=== PATIENT | male | born 1940 | race Caucasian/White ===

== ENCOUNTER 2020-03-03 14:07 | Inpatient (IN) ==
[2020-03-03] MEDS ORDERED: ONDANSETRON INJ 2 MG/ML 2 ML VIAL IV STA (14:44)
[2020-03-03] MEDS ORDERED: SODIUM CHLORIDE 0.9% 500 ML IV SCH (14:45)
[2020-03-03 14:52] LABS: Basophils # (auto) 0.05 K/uL (0-0.2); Basophils % (auto) 0.3 %; Eosinophils # (auto) 0.14 K/uL (0-0.5); Eosinophils % (auto) 0.9 %; Hematocrit (blood only) 35.4 % (42-52); Hemoglobin 11.7 g/dL (14.0-18.0); Immature Granulocytes # (auto) 0.04 K/uL (0.00-0.02); Immature Granulocytes % (auto) 0.3 %; Lymphocytes # (auto) 0.91 K/uL (1.2-3.4); Lymphocytes % (auto) 6.2 %; Mean Corpuscular Hemoglobin 32.7 pg (25-34); Mean Corpuscular Hgb Conc 33.1 g/dL (32-36); Mean Corpuscular Volume 98.9 fL (80-100); Mean Platelet Volume 9.5 fL (7.4-10.4); Monocytes # (auto) 0.48 K/uL (0.11-0.59); Monocytes % (auto) 3.3 %; Neutrophils # (auto) 13.14 K/uL (1.4-6.5); Platelet Count 265 K/uL (130-400); RDW Coefficient of Variation 14.6 % (11.5-14.5); Red Blood Count 3.58 M/uL (4.7-6.1); White Blood Count 14.76 K/uL (4.8-10.8)
--- NOTE | 2020-03-03 14:52 | Emergency Department Note ---
History of Present Illness General Chief Complaint: Abdominal Pain Stated Complaint: LOWER ABD PAIN - NAUSEA - VOMITING Time Seen by Provider: 03/03/20 14:32 Source: patient Mode of arrival: ambulatory Limitations: no limitations History of Present Illness Provider Complaint: abdominal pain Onset (ago): 3 day(s) Pain Consistency: constant Location: RLQ Radiation: none Severity: mild Maximum Pain Intensity: 2 Quality: + aching Relieved By: + nothing Exacerbated By: + nothing Associated Symptoms: + nausea This is a 79-year-old male who presents to the ED with a chief complaint of right lower quadrant abdominal pain. This patient states that his symptoms started a few days ago and it was mild and slight at that time. The patient states that this morning after eating breakfast around 8 AM he developed some nausea and increased right lower quadrant abdominal pain. He states that he rates his pain around 2-3 out of 10. He denies any diarrhea or constipation at this time. He denies any fevers. He does use dialysis. The dialysate fluid in the tube on my exam was clear. He denies any issues with his dialysis. He does produce some urine. The patient has no other complaints at this time. His main complaint at this time is the nausea and would like something for that. He did not want something for pain. Home Medications Home Medications Medication Instructions Recorded Confirmed Type allopurinol 300 mg tablet 300 mg PO HS tab 06/01/19 03/03/20 History atorvastatin 80 mg tablet 80 mg PO HS tab 06/01/19 03/03/20 History cholecalciferol (vitamin D3) 25 1,000 unit PO QAM cap 06/01/19 03/03/20 History mcg (1,000 unit) capsule furosemide 80 mg tablet 80 mg PO QAM tab 06/01/19 03/03/20 History insulin human U-100 NPH-regulr 0 unit SUBCUT AMPM ml 06/01/19 03/03/20 History 70-30 mix 100 unit/mL subcutaneous susp levothyroxine 100 mcg tablet 100 mcg PO QAM tab 06/01/19 03/03/20 History metoprolol tartrate 25 mg tablet 12.5 mg PO Q OTHER DAY tab 06/01/19 03/03/20 History linagliptin 5 mg tablet 5 mg PO QAM 01/04/20 03/03/20 History Allergies Allergy/AdvReac Type Severity Reaction Status Date / Time No Known Allergies Allergy Verified 03/03/20 15:08 Past Med/Surg History Surgical History History of prostate surgery Family History Mother Diabetes Father Cancer Cardiac disorder Social History marital status: current occupational status: retired Feels Safe at Home: Yes Smoking Status: Never smoker Hx Alcohol Use: No Review of Systems A total of 10 systems reviewed and were otherwise negative Physical Exam Vital Signs: Vital Signs - 24 hr 03/03/20 14:08 03/03/20 14:32 03/03/20 14:47 Temperature 36.7 C Temperature Source Oral Pulse Rate 115 H 73 76 Respiratory Rate 16 23 18 Blood Pressure 143/65 H Blood Pressure Adriana n 91 Pulse Oximetry 99 Oxygen Delivery Me thod Room Air Room Air Sepsis Recent Feve r Within 48 Hours No Sepsis New/Unexpla ined Change in Men kaye Status No Sepsis Action Take n by Nursing No Action Required 03/03/20 15:00 03/03/20 15:30 03/03/20 15:34 Temperature Temperature Source Pulse Rate 74 70 75 Respiratory Rate 19 19 Blood Pressure 159/69 H Blood Pressure Adriana n 92 Pulse Oximetry 94 Oxygen Delivery Me thod Sepsis Recent Feve r Within 48 Hours Sepsis New/Unexpla ined Change in Men kaye Status Sepsis Action Take n by Nursing 03/03/20 16:00 03/03/20 16:30 Temperature Temperature Source Pulse Rate 79 74 Respiratory Rate 19 22 Blood Pressure 157/63 H 135/56 L Blood Pressure Adriana n 80 104 Pulse Oximetry 93 Oxygen Delivery Me thod Sepsis Recent Feve r Within 48 Hours Sepsis New/Unexpla ined Change in Men kaye Status Sepsis Action Take n by Nursing Physical Exam: CONSTITUTIONAL/VITAL SIGNS: Reviewed / noted above. GENERAL: Non-toxic in appearance. INTEGUMENTARY: Warm, dry, and [place]. HEAD: Normocephalic. EYES: without scleral icterus or trauma. ENT/OROPHARYNX: clear and moist. LYMPHADENOPATHY/NECK: Is supple without lymphadenopathy or meningismus. RESPIRATORY: Lungs clear and equal. CARDIOVASCULAR: Regular rate and rhythm. GI/ABDOMEN: Soft and slightly tender in the right lower quadrant. No organomegaly or pulsatile mass. No rebound or guarding. Normal bowel sounds. EXTREMITIES: Warm and well perfused. BACK: No CVA tenderness. NEUROLOGICAL: Intact without focal deficits. PSYCHIATRIC: normal affect. MUSCULOSKELETAL: Normally developed with good muscle tone. TRIAGE NURSING DOCUMENTATION REVIEWED. Course Administered Medications Discontinued Medications Sodium Chloride (Nss) 500 mls @ 999 mls/hr IV .Q31M PARISA Stop: 03/03/20 15:15 Last Infusion: 03/03/20 15:42 Dose: 0 mls/hr Documented by: [id number] Admin: 03/03/20 15:07 Dose: 999 mls/hr Documented by: [id number] Ondansetron HCl (Zofran) 4 mg IV NOW STA Stop: 03/03/20 14:45 Last Admin: 03/03/20 15:06 Dose: 4 mg Documented by: [id number] Medical Decision Making Differential Diagnosis Differential considered: pancreatitis, hepatitis, acute cholecystitis, AAA, UTI, pyelonephritis, kidney stones, appendicitis, diverticulitis, shingles, bowel obstruction, mesenteric ischemia, intussusception,hernia, testicular torsion. Medical Records Attestation: I reviewed the patient's medical records. Home Medications Current Medication List: was personally reviewed by me Laboratory Data Attestation: I reviewed the patient's lab results. Result diagrams: 03/03/20 14:30 03/03/20 14:30 Lab Results 03/03/20 03/03/20 Range/Units 14:30 14:30 WBC 14.76 H (4.8-10.8) K/uL RBC 3.58 L (4.7-6.1) M/uL Hgb 11.7 L (14.0-18.0) g/dL Hct 35.4 L (42-52) % MCV 98.9 (80-100) fL MCH 32.7 (25-34) pg MCHC 33.1 (32-36) g/dL RDW Std Deviation 52.0 H (36.4-46.3) fL RDW Coeff of Manoj 14.6 H (11.5-14.5) % Plt Count 265 (130-400) K/uL MPV 9.5 (7.4-10.4) fL Immature Gran % (Auto) 0.3 % Neut % (Auto) 89.0 % Lymph % (Auto) 6.2 % [place] % (Auto) 3.3 % Eos % (Auto) 0.9 % Baso % (Auto) 0.3 % Immature Gran # (Auto) 0.04 H (0.00-0.02) K/uL Neut # (Auto) 13.14 H (1.4-6.5) K/uL Lymph # (Auto) 0.91 L (1.2-3.4) K/uL [place] # (Auto) 0.48 (0.11-0.59) K/uL Eos # (Auto) 0.14 (0-0.5) K/uL Baso # (Auto) 0.05 (0-0.2) K/uL Sodium 134 L (136-145) mmol/L Potassium 4.3 (3.5-5.1) mmol/L Chloride 106 (98-107) mmol/L Carbon Dioxide 22 (21-32) mmol/L Anion Gap 6.0 (3-11) BUN 60 H (7-18) mg/dl Creatinine 8.68 H* (0.6-1.4) mg/dl Est Cr Clr Drug Dosing 6.2 ml/min Est GFR ( Amer) 6.0 Est GFR (Non-Af Amer) 5.2 BUN/Creatinine Ratio 6.9 L (10-20) Glucose 136 H (70-99) mg/dl Calcium 9.4 (8.5-10.1) mg/dl Total Bilirubin 0.3 (0.2-1) mg/dl AST 28 (15-37) U/L ALT 43 (12-78) U/L Alkaline Phosphatase 136 H (45-117) U/L Total Protein 8.0 (6.4-8.2) gm/dl Albumin 2.6 L (3.4-5.0) gm/dl Globulin 5.4 H (2.5-4.0) gm/dl Albumin/Globulin Ratio 0.5 L (0.9-2) Lipase 145 (73-393) U/L Imaging Data Radiologist's Impression: Chest x-ray: IMPRESSION: 1. Cardiomegaly without overt pulmonary edema. 2. Trace pleural effusions with mild bibasilar opacities suggestive of atelectasis versus pneumonitis. 3. Prior granulomatous disease. 4. Chronic interstitial coarsening. CT ABD/PELVIS: 1. Moderate-sized right inguinal hernia contains mesenteric fat, free fluid and a prominent stool-filled loop of ileum suggestive of partial obstruction. 2. Moderate sized left inguinal hernia contains a nonobstructed loop of sigmoid colon. 3. No high-grade small bowel obstruction, pneumoperitoneum or pneumatosis. 4. Normal appendix. 5. Colonic diverticulosis without acute diverticulitis. 6. Nonobstructing right nephrolithiasis. 7. Indeterminate intermediate attenuating 1.7 cm lesion of the superior pole right kidney suggestive of complex cyst versus solid lesion. 8. Additional findings as above. Blood Pressure Blood Pressure Findings: Elevated blood pressure Blood Pressure Disposition: elevated BP felt to be situational MDM Narrative This is a 79-year-old male who presents to the ED with a chief complaint of right lower quadrant abdominal pain. This patient states that his symptoms started a few days ago and it was mild and slight at that time. The patient states that this morning after eating breakfast around 8 AM he developed some nausea and increased right lower quadrant abdominal pain. He states that he rates his pain around 2-3 out of 10. He denies any diarrhea or constipation at this time. He denies any fevers. He does use dialysis. The dialysate fluid in the tube on my exam was clear. He denies any issues with his dialysis. He does produce some urine. The patient has no other complaints at this time. His main complaint at this time is the nausea and would like something for that. He did not want something for pain. The patient's vital signs are stable. He is afebrile. His physical exam revealed some tenderness of the right lower quadrant. Blood cell count was 14.76. His hemoglobin is 11.7. BUN is 16. Creatinine is 8.68. He is on peritoneal dialysis. Lipase was negative. A chest x-ray is noted above. He clinically does not have pneumonia. A CT scan of the abdomen and pelvis revealed a large right inguinal hernia with a partial small bowel obstruction. This was evident on exam and was reduced with some continuous steady pressure and massage. It was tender on my exam but did reduce without much difficulty. I spoke with Dr. Luo about this. The patient will likely require surgery tomorrow. I spoke with medicine because of the patient's medical issues and they will see the patient for inpatient evaluation/admission and then with plan for surgery tomorrow. Impression & Plan Inguinal hernia, Partial obstruction of small intestine Discharge Plan Visit Data Chief Complaint: Abdominal Pain Stated Complaint: LOWER ABD PAIN - NAUSEA - VOMITING ED Provider: Matteo Buchanan Discharge Problem: Inguinal hernia, Partial obstruction of small intestine Patient Disposition: Being Evaluated by Hospitalist Forms Stand Alone Forms: [facility], Important Visit Information Prescriptions Prescriptions: No Action metoprolol tartrate 25 mg tablet 12.5 mg PO Q OTHER DAY RF: 0 cholecalciferol (vitamin D3) 1,000 unit capsule 1,000 unit PO QAM RF: 0 allopurinol 300 mg tablet 300 mg PO HS RF: 0 furosemide 80 mg tablet 80 mg PO QAM RF: 0 levothyroxine 100 mcg tablet 100 mcg PO QAM RF: 0 Humulin 70/30 U-100 Insulin 100 unit/mL (70-30) suspension 0 unit subcut AMPM RF: 0 atorvastatin 80 mg tablet 80 mg PO HS RF: 0 Tradjenta 5 mg tablet 5 mg PO QAM RF: 0 Referrals Referrals: Yvon Swan MD [Primary Care Provider] - Discharge Problem: Inguinal hernia Qualifiers: Obstruction and gangrene presence: without obstruction or gangrene Laterality: unilateral Recurrence: non-recurrent Qualified Code(s): K40.90 - Unilateral inguinal hernia, without obstruction or gangrene, not specified as recurrent
--- NOTE | 2020-03-03 15:14 | XRay Report ---
XR chest 1V portable HISTORY: 79 years-old Male abd pain acute generalized abdominal pain COMPARISON: Chest radiographs 12/06/2015 TECHNIQUE: Portable AP view of the chest FINDINGS: Cardiac silhouette is enlarged. Calcified right hilar lymph nodes. Calcified granuloma of the right l avelino base. Trace pleural effusions with mild bibasilar opacities. Chronic interstitial coarsening. No pneumothorax or overt pulmonary edema. Degenerative changes of the shoulders and spine. Calcified olman que of the aorta and carotid arteries. IMPRESSION: 1. Cardiomegaly without overt pulmonary edema. 2. Trace pleural effusions with mild bibasilar opacities suggestive of atelectasis versus pneumonitis . 3. Prior granulomatous disease. 4. Chronic interstitial coarsening. ACT 112: Negative or not required by law. The above report was generated using voice recognition software. It may contain grammatical, syntax o r spelling errors. Electronically signed by: Connor Quispe M.D. 03/03/2020 3:13 PM
[2020-03-03 15:23] LABS: Albumin Globulin Ratio 0.5 (0.9-2); Albumin Level 2.6 gm/dl (3.4-5.0); BUN Creatinine Ratio 6.9 (10-20); Bilirubin,Total 0.3 mg/dl (0.2-1); Calcium 9.4 mg/dl (8.5-10.1); Creatinine Clr Calc Pharmacy 6.2 ml/min; Est GFR (Non-African American) 5.2; Globulin 5.4 gm/dl (2.5-4.0); Potassium 4.3 mmol/L (3.5-5.1)
--- NOTE | 2020-03-03 15:44 | CT Scan Report ---
ABDOMEN AND PELVIS CT WITHOUT CONTRAST CT DOSE: 454.70 mGy.cm HISTORY: Acute right lower quadrant abdominal pain rlq pain TECHNIQUE: Multiaxial CT images of the abdomen and pelvis were performed without contrast. A dose lo wering technique was utilized adhering to the principles of ALARA. COMPARISON STUDY: None. FINDINGS: Study is limited secondary to motion artifact and lack of IV contrast. Subpleural bibasilar reticular opacities compatible with fibrosis. Mild subpleural cystic changes are also noted. Partially imaged calcified right hilar lymph nodes. No pneumatosis or pneumoperitoneum. Moderate cardiomegaly with ext ensive coronary artery calcifications. Limited evaluation of the solid abdominal organs without the use of IV contrast. Calcified granulomat a of the spleen. Mild generalized pancreatic atrophy. Unremarkable adrenal glands. The gallbladder an d unenhanced liver also appear unremarkable. Trace perihepatic free fluid. 1.7 cm soft tissue attenua ting lesion of the posterior aspect superior pole right kidney. Additionally, there are a few subcent imeter indeterminate intermediate attenuating lesions scattered throughout the left kidney. Punctate nonobstructing calculus of the inferior pole right kidney. No ureteral calculi or obstructive uropath y. Mild wall thickening of the urinary bladder with partial distention. Calcification of the vas defe rens. Prominent prostate. Extensive calcified plaque of the abdominal aorta. Fusiform dilation of the bilateral common iliac arteries measure up to 2.2 cm on the left. No adenopathy. Small hiatal hernia. No high-grade small bowel obstruction. Moderate fecal retention of the rectum. C olonic diverticulosis without acute diverticulitis. Noninflamed appendix. Peritoneum dialysis cathete r is noted with distal tip coiled within the abdominal right lower quadrant. Moderate sized inguinal hernias are noted, right greater than left. There is a prominent loop of stool-filled ileum extending into the right inguinal hernia. There is narrowing of the loop as it enters the sac with decompresse d loop exiting. Reactive fluid in the hernia is also noted. On the left, nonobstructed loop of proxim al sigmoid is noted. Diastases recti with prior ventral abdominal wall herniorrhaphy. Multilevel degenerative changes of the spine. 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 IMPRESSION: 1. Moderate-sized right inguinal hernia contains mesenteric fat, free fluid and a prominent stool-diana led loop of ileum suggestive of partial obstruction. 2. Moderate sized left inguinal hernia contains a nonobstructed loop of sigmoid colon. 3. No high-grade small bowel obstruction, pneumoperitoneum or pneumatosis. 4. Normal appendix. 5. Colonic diverticulosis without acute diverticulitis. 6. Nonobstructing right nephrolithiasis. 7. Indeterminate intermediate attenuating 1.7 cm lesion of the superior pole right kidney suggestive of complex cyst versus solid lesion. 8. Additional findings as above. ACT 112: Negative or not required by law. The above report was generated using voice recognition software. It may contain grammatical, syntax o r spelling errors. Electronically signed by: Connor Quispe M.D. 03/03/2020 3:43 PM
--- NOTE | 2020-03-03 16:59 | History & Physical Report ---
Date of Service March 03, 2020 Assessment & Plan (1) Right inguinal hernia: Patient with sliding right inguinal hernia causing what may be a partial small bowel obstruction Easily reducible in the emergency room Patient's comorbidity including need for hemodialysis will be performed tonight we will seed with the operation Of open right inguinal hernia repair tomorrow morning N.p.o. after midnight with antibiotics I have discussed with the patient possible complications of bleeding infection bowel injury nerve injury Leakage of the wound will need for drain and tension wound VAC in the future He does wish to proceed History of Present Illness Primary Care Provider: Yvon Swan MD pt with known Inguinal hernias- developed abd pain, nausea, mostly Rt groin pain presented to ER Rt ing hernia on CT with fluid and sm bowel- possible partial obstruction sigmoid in Lt ing hernia - no evidence of obstruction ER physician reduced hernia h/o ESRD, on peritoneal dialysis Allergies Allergy/AdvReac Type Severity Reaction Status Date / Time No Known Allergies Allergy Verified 03/03/20 15:08 Home Medications Home Medications Medication Instructions Recorded Confirmed Type allopurinol 300 mg tablet 300 mg PO HS tab 06/01/19 03/03/20 History atorvastatin 80 mg tablet 80 mg PO HS tab 06/01/19 03/03/20 History cholecalciferol (vitamin D3) 25 1,000 unit PO QAM cap 06/01/19 03/03/20 History mcg (1,000 unit) capsule furosemide 80 mg tablet 80 mg PO QAM tab 06/01/19 03/03/20 History insulin human U-100 NPH-regulr 0 unit SUBCUT AMPM ml 06/01/19 03/03/20 History 70-30 mix 100 unit/mL subcutaneous susp levothyroxine 100 mcg tablet 100 mcg PO QAM tab 06/01/19 03/03/20 History metoprolol tartrate 25 mg tablet 12.5 mg PO Q OTHER DAY tab 06/01/19 03/03/20 History linagliptin 5 mg tablet 5 mg PO QAM 01/04/20 03/03/20 History Past Med/Surg History Surgical History History of prostate surgery Family History Mother Diabetes Father Cancer Cardiac disorder Social History marital status: current occupational status: retired Feels Safe at Home: Yes Smoking Status: Never smoker Hx Alcohol Use: No Review of Systems All systems reviewed & are unremarkable except as noted in HPI & below Physical Exam Constitutional: + ill appearing (chronic); no acute distress Eyes: + anicteric sclerae Respiratory: normal respiratory effort; no respiratory distress Cardiovascular: Rate/Rhythm: regular rate and regular rhythm Gastrointestinal (Abdomen): Inspection/Auscultation: abdomen not distended Right inguinal area very soft with no erythema significant tenderness easily reducible inguinal hernia Skin: no rashes, warm and dry Neurologic: awake Psychiatric: Orientation: alert Results & Data Vital Signs (Past 12 Hours) Vital Signs Temp Pulse Resp BP Pulse Ox 03/03/20 15:34 75 19 159/69 H 94 03/03/20 15:30 70 19 03/03/20 15:00 74 03/03/20 14:47 76 18 03/03/20 14:32 73 23 03/03/20 14:08 36.7 C 115 H 16 143/[address] scan
[2020-03-03] MEDS ORDERED: ALBUTEROL 0.083% NEBU SOLN 3 ML VIAL NEB PRN (17:31)
--- NOTE | 2020-03-03 17:31 | History & Physical Report ---
Date of Service March 03, 2020 Assessment & Plan (1) Partial obstruction of small intestine: 2 days history of lower abdominal discomfort Lower abdominal pain mostly in right inguinal area since this morning CT did show partial small bowel obstruction secondary to right inguinal hernia The hernia was reduced by the ER physician Surgery consulted-appreciate input Possible right inguinal hernia surgery tomorrow There is no medical contraindication for the proposed surgery which carries ave rage risk given other comorbid condition (2) Right inguinal hernia: Management as above (3) End-stage renal disease on peritoneal dialysis: Has been on peritoneal dialysis every night We will discuss with the honey producer for continued dialysis (4) COPD (chronic obstructive pulmonary disease) with chronic bronchitis: Does not have any acute exacerbation We will put him on as needed nebulized bronchodilators (5) Diabetes mellitus: We will continue his current medications Blood sugar AC at bedtime (6) Pure hypercholesterolemia: Will hold statin for tonight (7) Hypertension: Continue current medication (8) Hypothyroidism: Continue supplement (9) Narcolepsy: 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 Since this morning he has been complaining of more pain right lower quadrant and in the right inguinal area with nausea and he noticed a lump about the size of a fist when he laid down with the pain. No vomiting and no fever and/or chills. No chest pain and/or palpitation, no cough and/or phlegm. In ER CAT scan of the abdomen and pelvis did show obstructed right inguinal hernia which was successfully reduced by the ER physician. He was evaluated by on-call surgeon, Dr. Luo and he will be taken to or to fix hernia tomorrow. Allergies Allergy/AdvReac Type Severity Reaction Status Date / Time No Known Allergies Allergy Verified 03/03/20 15:08 Home Medications Home Medications Medication Instructions Recorded Confirmed Type allopurinol 300 mg tablet 300 mg PO HS tab 06/01/19 03/03/20 History atorvastatin 80 mg tablet 80 mg PO HS tab 06/01/19 03/03/20 History cholecalciferol (vitamin D3) 25 1,000 unit PO QAM cap 06/01/19 03/03/20 History mcg (1,000 unit) capsule furosemide 80 mg tablet 80 mg PO QAM tab 06/01/19 03/03/20 History insulin human U-100 NPH-regulr 0 unit SUBCUT AMPM ml 06/01/19 03/03/20 History 70-30 mix 100 unit/mL subcutaneous susp levothyroxine 100 mcg tablet 100 mcg PO QAM tab 06/01/19 03/03/20 History metoprolol tartrate 25 mg tablet 12.5 mg PO Q OTHER DAY tab 06/01/19 03/03/20 History linagliptin 5 mg tablet 5 mg PO QAM 01/04/20 03/03/20 History Past Med/Surg History Surgical History History of prostate surgery Family History Mother Diabetes Father Cancer Cardiac disorder Social History marital status: current occupational status: retired Feels Safe at Home: Yes Smoking Status: Never smoker Hx Alcohol Use: No Review of Systems Review of Systems: All systems reviewed & are unremarkable except as noted in HPI & below Physical Exam Physical Exam: Lying in bed comfortably but looks very anxious Constitutional: well developed, well nourished and + ill appearing; no acute distress Eyes: PERRL, conjunctivae normal, anicteric sclerae ENMT: external ear and nose normal, oropharynx normal Neck: trachea midline, no thyromegaly Respiratory: normal respiratory effort; no respiratory distress Auscultation: lungs clear to auscultation bilaterally Cardiovascular: Rate/Rhythm: regular rate and regular rhythm Heart Sounds: no murmur Gastrointestinal (Abdomen): Inspection/Auscultation: + abdomen distended and normal bowel sounds Percussion/Palpation: + abdomen tender (Mildly tender right inguinal region) and abdomen soft; no guarding and abdomen not rigid Musculoskeletal: No acute arthritis in any joints Neurologic: moves all extremities; no focal motor deficits Lymphatic: no cervical or axillary lymphadenopathy Results & Data Results & Data ([facility]) Vital Signs (Past 12 Hours) Vital Signs Temp Pulse Resp BP Pulse Ox 03/03/20 16:30 74 22 135/56 L 93 03/03/20 16:00 79 19 157/63 H 03/03/20 15:34 75 19 159/69 H 94 03/03/20 15:30 70 19 03/03/20 15:00 74 03/03/20 14:47 76 18 03/03/20 14:32 73 23 03/03/20 14:08 36.7 C 115 H 16 143/65 H 99 Laboratory Results Short CBC 03/03/20 Range/Units 14:30 WBC 14.76 H (4.8-10.8) K/uL Hgb 11.7 L (14.0-18.0) g/dL Hct 35.4 L (42-52) % Plt Count 265 (130-400) K/uL BMP 03/03/20 14:30 Sodium 134 L Potassium 4.3 Chloride 106 Carbon Dioxide 22 BUN 60 H Creatinine 8.68 H* Glucose 136 H Calcium 9.4 Liver Function 03/03/20 Range/Units 14:30 Total Bilirubin 0.3 (0.2-1) mg/dl AST 28 (15-37) U/L ALT 43 (12-78) U/L Alkaline Phosphatase 136 H (45-117) U/L Albumin 2.6 L (3.4-5.0) gm/dl Diagnostic Findings CAT scan of the abdomen and pelvis: IMPRESSION: 1. Moderate-sized right inguinal hernia contains mesenteric fat, free fluid and a prominent stool-filled loop of ileum suggestive of partial obstruction. 2. Moderate sized left inguinal hernia contains a nonobstructed loop of sigmoid colon. 3. No high-grade small bowel obstruction, pneumoperitoneum or pneumatosis. 4. Normal appendix. 5. Colonic diverticulosis without acute diverticulitis. 6. Nonobstructing right nephrolithiasis. 7. Indeterminate intermediate attenuating 1.7 cm lesion of the superior pole right kidney suggestive of complex cyst versus solid lesion. 8. Additional findings as above. Medications Administered Current Inpatient Medications Heparin Sodium (Porcine) (Heparin Sodium (Porcine)) 5,000 units SQ Q12 PARISA Stop: 04/02/20 20:59 Sodium Chloride (Nss 1000ml) 1,000 mls @ 80 mls/hr IV .[id number] PARISA Stop: 04/02/20 17:14 Cefazolin Sodium (Ancef 1000mg) 1,000 mg in 7.5 mls @ 2.5 mls/min IV PREOP PARISA; Protocol Stop: 03/04/20 18:00 Code Status & VTE Plan VTE Prophylaxis Plan VTE Prophylaxis will be ordered: Yes
[2020-03-03] MEDS: SODIUM CHLORIDE 0.9% 1000ML 1,000 ML IV SCH (18:41)
[2020-03-03] MEDS ORDERED: Nursing to Pharmacy Communication ONE (20:03)
[2020-03-03] MEDS ORDERED: DEXTROSE 50% 50 ML SYRINGE IV PRN ×2 (20:07→20:30)
[2020-03-03] MEDS ORDERED: GLUCOSE 10 TABS/TUBE PO PRN ×2 (20:07→20:30)
[2020-03-03] MEDS ORDERED: GLUCAGON FOR INJ 1 MG VIAL SQ PRN (20:07)
[2020-03-03] MEDS ORDERED: GLUCOSE 40% GEL 15 GM TUBE PO PRN ×2 (20:07→20:30)
[2020-03-03] MEDS ORDERED: CARBOHYDRATES FOR HYPOGLYCEMIA PO PRN ×2 (20:07→20:30)
[2020-03-03] MEDS ORDERED: GLUCAGON FOR INJ 1 MG VIAL IM PRN (20:30)
[2020-03-03] MEDS ORDERED: INSULIN ASPART 100 UNITS/ML 3 ML PEN SC SCH (21:00)
[2020-03-03] MEDS: HEPARIN SOD 5,000 UNIT/0.5 ML VIAL SQ SCH (21:25)
[2020-03-03] MEDS ORDERED: ZOLPIDEM TARTRATE 5 MG TAB PO STA (23:43)
[2020-03-04] MEDS: INSULIN ASPART 100 UNITS/ML 3 ML PEN SC SCH ×5 (00:10→21:34)
[2020-03-04] MEDS ORDERED: CEFAZOLIN 1000MG 1,000 MG/7.5 ML SYR IV SCH (06:00)
[2020-03-04] MEDS: LEVOTHYROXINE SODIUM 100 MCG TABLET PO SCH (06:23)
[2020-03-04] MEDS: SODIUM CHLORIDE 0.9% 1000ML 1,000 ML IV SCH ×2 (06:29→19:07)
[2020-03-04 07:16] LABS: Albumin Globulin Ratio 0.5 (0.9-2); Albumin Level 2.2 gm/dl (3.4-5.0); BUN Creatinine Ratio 6.6 (10-20); Bilirubin,Total 0.3 mg/dl (0.2-1); Calcium 8.9 mg/dl (8.5-10.1); Creatinine Clr Calc Pharmacy 7.3 ml/min; Est GFR (African American) 6.6; Est GFR (Non-African American) 5.7; Globulin 4.3 gm/dl (2.5-4.0); Phosphorus 5.3 mg/dl (2.5-4.9); Potassium 3.9 mmol/L (3.5-5.1); Total Protein 6.5 gm/dl (6.4-8.2)
[2020-03-04] MEDS ORDERED: INSULIN HUMAN 70% NPH/30% REGULAR SC ONE (07:30)
[2020-03-04] MEDS: HEPARIN SOD 5,000 UNIT/0.5 ML VIAL SQ SCH ×2 (07:44→21:34)
--- NOTE | 2020-03-04 08:23 | History & Physical Bridge Note ---
Date of Service March 04, 2020 History & Physical Bridge Note I have examined the patient, reviewed the History & Physical and in the interval since the performance of the History & Physical I have noted the following changes of clinical significance: no changes noted
[2020-03-04] MEDS ORDERED: fentaNYL citrate 100 MCG/2 ML VIAL ONE ×2 (08:43→09:56)
[2020-03-04] MEDS ORDERED: BUPIVACAINE 0.5 % 5 MG/1 ML MPF 30ML VIAL ONE (08:47)
[2020-03-04] MEDS ORDERED: CEFAZOLIN 250 MG/ML 1 GM VIAL ONE (08:47)
--- NOTE | 2020-03-04 08:50 | Anesthesiology Consultation ---
Date of Service March 04, 2020 Assessment & Plan Chart Review Chart Review: Acceptable Risk for Surgery Consults Requested none History Surgery Operation Date: 03/04/20 07:30 Proposed Procedures p Right Open Inguinal Hernia Repair - Federico Luo MD, FACS Height/Weight Height: 5 ft 7 in Weight: 79.7 kg Allergies Allergy/AdvReac Type Severity Reaction Status Date / Time No Known Allergies Allergy Verified 03/03/20 15:08 Medications Home Medications Medication Instructions Recorded Confirmed Last Taken allopurinol 300 mg tablet 300 mg PO HS tab 06/01/19 03/03/20 03/02/20 atorvastatin 80 mg tablet 80 mg PO HS tab 06/01/19 03/03/20 03/02/20 cholecalciferol (vitamin D3) 25 1,000 unit PO QAM cap 06/01/19 03/03/20 03/03/20 mcg (1,000 unit) capsule furosemide 80 mg tablet 80 mg PO QAM tab 06/01/19 03/03/20 03/03/20 insulin human U-100 NPH-regulr 0 unit SUBCUT AMPM ml 06/01/19 03/03/20 03/03/20 08:00 70-30 mix 100 unit/mL subcutaneous 15 UNITS susp levothyroxine 100 mcg tablet 100 mcg PO QAM tab 06/01/19 03/03/20 03/03/20 metoprolol tartrate 25 mg tablet 12.5 mg PO Q OTHER DAY tab 06/01/19 03/03/20 03/02/20 linagliptin 5 mg tablet 5 mg PO QAM 01/04/20 03/03/20 03/03/20 Active Medications Generic Name Dose Route Start Last Admin Trade Name Freq PRN Reason Stop Dose Admin Heparin Sodium (Porcine) 5,000 units 03/03/20 21:00 03/04/20 07:44 Heparin Sodium (Porcine) SQ 04/02/20 20:59 Not Given Q12 PARISA Sodium Chloride 1,000 mls @ 80 mls/hr 03/03/20 17:15 03/04/20 06:29 Nss 1000ml IV 04/02/20 17:14 80 mls/hr .[id number] PARISA Administration Insulin Aspart 0 units 03/04/20 00:00 03/04/20 06:24 Novolog Flexpen SC 04/03/20 00:00 3 units Q6 PARISA Administration Levothyroxine Sodium 100 mcg 03/04/20 06:30 03/04/20 06:23 Synthroid PO 04/03/20 06:29 100 mcg DAILYBB PARISA Administration Miscellaneous 1 ea 03/04/20 08:00 03/04/20 07:44 Order Awaiting Action N/A 04/03/20 07:59 Not Given QS PARISA NPO Date Last Intake of Fluids: 03/03/20 Time Last Intake of Fluids: 23:50 Past Family History Family History Mother Diabetes Father Cancer Cardiac disorder Past Surgical History Surgical History History of prostate surgery Social History Smoking Status: Former smoker tobacco type: cigarettes Smoking cigarettes per day: one pack a day Do You Dip or Chew Tobacco: No Hx Alcohol Use: Yes Alcohol type: wine alcohol intake frequency: holidays/special occasions only Hx Substance Use: No substance use type: does not use Physical Exam Vital Signs Last Vital Signs Temp 36.8 C 03/04/20 07:00 Pulse 74 03/04/20 07:00 Resp 18 03/04/20 07:00 BP 138/63 03/04/20 07:00 Pulse Ox 94 03/04/20 03:43 Testing Laboratory Results 03/03/20 14:30 03/04/20 06:14 03/04/20 03/04/20 03/03/20 06:13 00:05 21:23 POC Glucose 200 H 217 H 187 H
[2020-03-04] MEDS ORDERED: ONDANSETRON INJ 2 MG/ML 2 ML VIAL IV PRN ×2 (08:53→12:46)
[2020-03-04] MEDS ORDERED: HYDROmorphone INJ 2 MG/ML SYR/VIAL IV PRN (08:53)
[2020-03-04] MEDS ORDERED: PROMETHAZINE HCL 12.5 MG in SODIUM CHLORIDE 0.9% 50 ML IV PRN ×2 (08:53→12:46)
[2020-03-04] MEDS ORDERED: METOCLOPRAMIDE HCL INJ 5 MG/ML 2 ML VIAL IV PRN (08:53)
[2020-03-04] MEDS ORDERED: ATROPINE SULFATE 0.1 MG/ML 10ML SYR IV PRN (08:53)
[2020-03-04] MEDS ORDERED: fentaNYL citrate 100 MCG/2 ML VIAL IV PRN (08:53)
[2020-03-04] MEDS ORDERED: ePHEDrine sulfate 50 MG/ML AMP IV PRN (08:53)
[2020-03-04] MEDS ORDERED: PROPOFOL IV EMULSION 10 MG/ML 20 ML VIAL IV ONE (10:31)
[2020-03-04] MEDS ORDERED: LIDOCAINE HCL 2% 2 ML VIAL/AMP(20MG/ML) INFIL ONE (10:31)
[2020-03-04] MEDS ORDERED: ACETAMINOPHEN 1,000 MG/100 ML VIAL IV ONE (10:31)
[2020-03-04] MEDS ORDERED: ALBUTEROL HFA INHALER 8.5 GM ONE (10:31)
[2020-03-04] MEDS ORDERED: ONDANSETRON INJ 2 MG/ML 2 ML VIAL ONE (10:31)
[2020-03-04] MEDS ORDERED: ePHEDrine sulfate 50 MG/ML SYR ONE (10:31)
[2020-03-04] MEDS ORDERED: PHENYLEPHRINE 100MCG/ML 5ML SYR ONE (10:31)
--- NOTE | 2020-03-04 10:31 | Post Operative Brief Note ---
PG Immediate Post Op with CF Date of Surgery March 04, 2020 Pre & Post Diagnosis Operation Date: 03/04/20 07:30 Pre-Op Diagnosis: Obstructed Right Inguinal Hernia Post-Op Diagnosis: Obstructed Right Inguinal Hernia I identified the patient and participated in the time-out.: Yes Procedure Operation Date: 03/04/20 07:30 Actual Procedures p Right Open Inguinal Hernia Repair(Right) - Federico Lou MD, FACS Surgeon Federico Luo MD, FACS Numerical Control Nesting Operator Dung Pugh Estimated Blood Loss 10 Findings Consistent with Post-Op Diagnosis Specimens Specimen Description: A. Lipoma
[2020-03-04] MEDS ORDERED: ACETAMINOPHEN 1000 MG/100 ML IV IV ONE (11:11)
--- NOTE | 2020-03-04 11:16 | Operative Report (OR) ---
DATE OF OPERATION: 03/04/2020 NAME OF OPERATION: Open right inguinal hernia repair with mesh. PREOPERATIVE DIAGNOSIS: Right inguinal hernia. POSTOPERATIVE DIAGNOSIS: Right inguinal hernia. STAFF SURGEON: Federico Luo MD. INFORMATION CLERK: Bar Pugh PA-C. ANESTHESIA: General. FINDINGS: The patient had a large right inguinal hernia with an indirect sac which preoperatively was causing a partial small-bowel obstruction with him, presenting to the Emergency Room with pain and nausea. It was reduced in the Emergency Room. DESCRIPTION OF PROCEDURE: The patient was brought in the operating room and placed on the operating table in supine position. His abdomen was prepped and draped in usual fashion. Pneumatic stockings, orogastric tube were placed. 0.5% plain Marcaine was used to anesthetize the skin and subcutaneous tissue and then deep tissue later in the procedure. Incision was made parallel to the inguinal ligament, carrying dissection down identifying the external oblique fibers with significant tissue coming through the external ring. External oblique fibers were incised along their length to the external ring, mobilizing the cord structures. The patient had a very large indirect hernia sac, which was dissected free and then reduced. He also had a large lipoma, which was dissected free and excised and ligated using 2-0 silk suture. The internal ring was then reinforced using an extra large mesh plug, secured using 0 silk suture. Large mesh patch was placed into the floor of the canal around the cord structures, secured using 2-0 Ethibond suture. The external oblique fibers were closed over the mesh around the cord structures using 2-0 Ethibond suture. I was able to identify the ilioinguinal and iliohypogastric nerves. The site was irrigated with antibiotic solution. Subcutaneous tissue was reapproximated using 2-0 plain suture and then the skin was reapproximated using 4-0 nylon suture and Steri-Strips. As a note, there was significant edema within the area of dissection. I did not see the small bowel within the hernia sac. There was no bloody fluid. Dressing was applied and the patient was transferred to recovery room in stable condition. I attest to the content of the Intraoperative Record and any orders documented therein. Any exception s are noted below.
--- NOTE | 2020-03-04 12:03 | Anesthesiology Consultation ---
Date of Service March 04, 2020 Assessment & Plan Chart Review Chart Review: Acceptable Risk for Surgery Consults Requested none History Surgery Operation Date: 03/04/20 07:30 Proposed Procedures p Right Open Inguinal Hernia Repair - Federico Luo MD, FACS Height/Weight Height: 5 ft 7 in Weight: 79.7 kg Allergies Allergy/AdvReac Type Severity Reaction Status Date / Time No Known Allergies Allergy Verified 03/03/20 15:08 Medications Home Medications Medication Instructions Recorded Confirmed Last Taken allopurinol 300 mg tablet 300 mg PO HS tab 06/01/19 03/03/20 03/02/20 atorvastatin 80 mg tablet 80 mg PO HS tab 06/01/19 03/03/20 03/02/20 cholecalciferol (vitamin D3) 25 1,000 unit PO QAM cap 06/01/19 03/03/20 03/03/20 mcg (1,000 unit) capsule furosemide 80 mg tablet 80 mg PO QAM tab 06/01/19 03/03/20 03/03/20 insulin human U-100 NPH-regulr 0 unit SUBCUT AMPM ml 06/01/19 03/03/20 03/03/20 08:00 70-30 mix 100 unit/mL subcutaneous 15 UNITS susp levothyroxine 100 mcg tablet 100 mcg PO QAM tab 06/01/19 03/03/20 03/03/20 metoprolol tartrate 25 mg tablet 12.5 mg PO Q OTHER DAY tab 06/01/19 03/03/20 03/02/20 linagliptin 5 mg tablet 5 mg PO QAM 01/04/20 03/03/20 03/03/20 Active Medications Generic Name Dose Route Start Last Admin Trade Name Freq PRN Reason Stop Dose Admin Heparin Sodium (Porcine) 5,000 units 03/03/20 21:00 03/04/20 07:44 Heparin Sodium (Porcine) SQ 04/02/20 20:59 Not Given Q12 PARISA Sodium Chloride 1,000 mls @ 80 mls/hr 03/03/20 17:15 03/04/20 06:29 Nss 1000ml IV 04/02/20 17:14 80 mls/hr .[id number] PARISA Administration Cefazolin Sodium 1,000 mg in 7.5 mls @ 2.5 mls/min 03/04/20 06:00 04/20/20 09:33 Ancef 1000mg IV 03/04/20 18:00 2.5 mls/min PREOP PARISA Administration Protocol Insulin Aspart 0 units 03/04/20 00:00 03/04/20 06:24 Novolog Flexpen SC 04/03/20 00:00 3 units Q6 PARISA Administration Levothyroxine Sodium 100 mcg 03/04/20 06:30 03/04/20 06:23 Synthroid PO 04/03/20 06:29 100 mcg DAILYBB PARISA Administration Miscellaneous 1 ea 03/04/20 08:00 03/04/20 07:44 Order Awaiting Action N/A 04/03/20 07:59 Not Given QS PARISA NPO Date Last Intake of Fluids: 03/03/20 Time Last Intake of Fluids: 23:50 Date Last Intake of Solids: 03/03/20 Time Last Intake of Solids: 08:00 Past Family History Family History Mother Diabetes Father Cancer Cardiac disorder Past Surgical History Surgical History History of prostate surgery Social History Smoking Status: Former smoker tobacco type: cigarettes Smoking cigarettes per day: one pack a day Do You Dip or Chew Tobacco: No Hx Alcohol Use: Yes Alcohol type: wine alcohol intake frequency: holidays/special occasions only Hx Substance Use: No substance use type: does not use Physical Exam Vital Signs Last Vital Signs Temp 36.6 C 03/04/20 11:45 Pulse 76 03/04/20 11:45 Resp 18 03/04/20 11:45 BP 129/55 L 03/04/20 11:45 Pulse Ox 100 03/04/20 11:45 Testing Laboratory Results 03/03/20 14:30 03/04/20 06:14 03/04/20 03/04/20 03/04/20 11:04 06:13 00:05 POC Glucose 159 H 200 H 217 H
[2020-03-04] MEDS ORDERED: HYDROCODONE/ACETAMOPHEN 5/325MG TAB PO PRN (12:46)
[2020-03-04] MEDS: METOPROLOL TARTRATE 25 MG TAB PO SCH (13:06)
[2020-03-04] MEDS ORDERED: Nursing to Pharmacy Communication ONE (13:13)
--- NOTE | 2020-03-04 14:02 | Anesthesiology Progress Note ---
Date of Service March 04, 2020 Anesthesia Post Procedure Vital Signs Vital Signs: Temp Pulse Pulse Pulse Pulse Pulse Resp 03/04/20 13:30 36.5 C 81 20 03/04/20 12:44 36.5 C 78 20 03/04/20 12:02 36.6 C 77 75 20 03/04/20 11:45 36.6 C 76 18 03/04/20 11:30 36.6 C 76 18 03/04/20 11:20 79 17 03/04/20 11:10 78 20 03/04/20 11:03 36.5 C 80 19 03/04/20 08:45 36.8 C 73 20 03/04/20 08:00 76 03/04/20 07:00 36.8 C 74 18 03/04/20 06:45 36.8 C 74 18 03/04/20 03:43 36.5 C 77 18 03/04/20 03:35 61 03/03/20 22:52 36.6 C 82 18 03/03/20 19:30 36.7 C 85 16 03/03/20 18:25 36.7 C 83 16 03/03/20 16:30 74 22 03/03/20 16:00 79 19 03/03/20 15:34 75 19 03/03/20 15:30 70 19 03/03/20 15:00 74 03/03/20 14:47 76 18 03/03/20 14:32 73 23 03/03/20 14:08 36.7 C 115 H 16 BP BP Pulse Ox 03/04/20 13:30 134/63 100 03/04/20 12:44 124/53 L 100 03/04/20 12:02 129/63 100 03/04/20 11:45 129/55 L 100 03/04/20 11:30 132/50 L 100 03/04/20 11:20 130/52 L 100 03/04/20 11:10 137/58 L 100 03/04/20 11:03 124/52 L 100 03/04/20 08:45 118/59 L 100 03/04/20 08:00 03/04/20 07:00 138/63 03/04/20 06:45 03/04/20 03:43 122/65 94 03/04/20 03:35 03/03/20 22:52 129/64 93 03/03/20 19:30 142/63 H 03/03/20 18:25 142/63 H 98 03/03/20 16:30 135/56 L 93 03/03/20 16:00 157/63 H 03/03/20 15:34 159/69 H 94 03/03/20 15:30 03/03/20 15:00 03/03/20 14:47 03/03/20 14:32 03/03/20 14:08 143/65 H 99 Transfer of Care Handoff Completed per policy Notes Mental Status: alert / awake / arousable and participated in evaluation Patient Amnestic to Procedure: Yes Nausea / Vomiting: adequately controlled Pain: adequately controlled Airway Patency, RR, SpO2: stable & adequate BP & HR: stable & adequate Hydration State: stable & adequate Anesthetic Complications: no major complications apparent
--- NOTE | 2020-03-04 14:15 | Hospitalist Progress Note ---
Date of Service March 04, 2020 Assessment & Plan (1) Partial obstruction of small intestine: 2 days history of lower abdominal discomfort Lower abdominal pain mostly in right inguinal area since this morning CT did show partial small bowel obstruction secondary to right inguinal hernia The hernia was reduced by the ER physician Surgery consulted-appreciate input Possible right inguinal hernia surgery tomorrow There is no medical contraindication for the proposed surgery which carries ave rage risk given other comorbid condition Status post right open inguinal hernia repair by Dr. Luo, POD #0 Remains stable (2) Right inguinal hernia: Management as above (3) End-stage renal disease on peritoneal dialysis: Has been on peritoneal dialysis every night Nephrology consulted Likely to need for hemodialysis following surgery and the patient is agreeable to the (4) COPD (chronic obstructive pulmonary disease) with chronic bronchitis: Does not have any acute exacerbation We will put him on as needed nebulized bronchodilators (5) Diabetes mellitus: We will continue his current medications Blood sugar AC at bedtime (6) Pure hypercholesterolemia: Will hold statin for tonight (7) Hypertension: Continue current medication (8) Hypothyroidism: Continue supplement (9) Narcolepsy: History of narcolepsy without any serious symptoms (10) Obstructive sleep apnea: No acute symptoms Can use his own CPAP DVT prophylax Subcu heparin CODE STATUS Full Admission and Anticipated Discharge Date Admission Date: March 03, 2020 Subjective 03/04/2020 Patient was seen and examined in medical telemetry unit Is a status post repair of the right inguinal hernia Denies any complaints Waiting for nephrology evaluation Review of Systems Review of Systems: All systems reviewed and are unremarkable except as noted below Gastrointestinal: + abdominal pain; no bloating, no nausea and no vomiting Physical Exam Physical Exam: Lying in bed comfortably but looks very anxious Constitutional: well developed, well nourished and + ill appearing; no acute distress Eyes: PERRL, conjunctivae normal, anicteric sclerae ENMT: external ear and nose normal, oropharynx normal Neck: trachea midline, no thyromegaly Respiratory: normal respiratory effort; no respiratory distress Auscultation: lungs clear to auscultation bilaterally Cardiovascular: Rate/Rhythm: regular rate and regular rhythm Heart Sounds: no murmur Gastrointestinal (Abdomen): Inspection/Auscultation: + abdomen distended and normal bowel sounds Percussion/Palpation: + abdomen tender (Mildly tender right inguinal region) and abdomen soft; no guarding and abdomen not rigid Neurologic: moves all extremities; no focal motor deficits Lymphatic: no cervical or axillary lymphadenopathy Results & Data Results & Data ([facility]) Vital Signs (Past 12 Hours) Vital Signs Temp Pulse Pulse Pulse Pulse Pulse Resp 03/04/20 13:30 36.5 C 81 20 03/04/20 12:44 36.5 C 78 20 03/04/20 12:02 36.6 C 77 75 20 03/04/20 11:45 36.6 C 76 18 03/04/20 11:30 36.6 C 76 18 03/04/20 11:20 79 17 03/04/20 11:10 78 20 03/04/20 11:03 36.5 C 80 19 03/04/20 08:45 36.8 C 73 20 03/04/20 08:00 76 03/04/20 07:00 36.8 C 74 18 03/04/20 06:45 36.8 C 74 18 03/04/20 03:43 36.5 C 77 18 03/04/20 03:35 61 BP Pulse Ox 03/04/20 13:30 134/63 100 03/04/20 12:44 124/53 L 100 03/04/20 12:02 129/63 100 03/04/20 11:45 129/55 L 100 03/04/20 11:30 132/50 L 100 03/04/20 11:20 130/52 L 100 03/04/20 11:10 137/58 L 100 03/04/20 11:03 124/52 L 100 03/04/20 08:45 118/59 L 100 03/04/20 08:00 03/04/20 07:00 138/63 03/04/20 06:45 03/04/20 03:43 122/65 94 03/04/20 03:35 Laboratory Results Short CBC 03/03/20 Range/Units 14:30 WBC 14.76 H (4.8-10.8) K/uL Hgb 11.7 L (14.0-18.0) g/dL Hct 35.4 L (42-52) % Plt Count 265 (130-400) K/uL BMP 03/03/20 03/04/20 14:30 06:14 Sodium 134 L 141 D Potassium 4.3 3.9 Chloride 106 109 H Carbon Dioxide 22 23 BUN 60 H 53 H Creatinine 8.68 H* 8.01 H* D Glucose 136 H 187 H Calcium 9.4 8.9 Liver Function 03/03/20 03/04/20 Range/Units 14:30 06:14 Total Bilirubin 0.3 0.3 (0.2-1) mg/dl AST 28 17 (15-37) U/L ALT 43 32 (12-78) U/L Alkaline Phosphatase 136 H 95 (45-117) U/L Albumin 2.6 L 2.2 L (3.4-5.0) gm/dl Medications Administered Current Inpatient Medications Hydrocodone Bitart/Acetaminophen ([place] 5/325) 1 tab PO Q4HWA PRN PRN Reason: Pain Stop: 03/18/20 12:45 Hydrocodone Bitart/Acetaminophen ([place] 5/325) 2 tab PO Q4HWA PRN PRN Reason: Pain Stop: 03/18/20 12:45 Albuterol (Ventolin 0.083% 2.5mg/3ml) 2.5 mg NEB Q6R PRN PRN Reason: Wheezing Stop: 04/02/20 17:30 Dextrose (Dextrose 50%) 25 - 50 ml IV UD PRN; Protocol PRN Reason: Hypoglycemia Protocol Stop: 04/02/20 20:29 Glucagon (Glucagen) 1 mg IM UD PRN; Protocol PRN Reason: Hypoglycemia Protocol Stop: 04/02/20 20:29 Glucose (Glucose 40%) 15 - 30 gm PO UD PRN; Protocol PRN Reason: Hypoglycemia Protocol Stop: 04/02/20 20:29 Glucose (Dex4 Glucose) 4 - 8 tabs PO UD PRN; Protocol PRN Reason: Hypoglycemia Protocol Stop: 04/02/20 20:29 Heparin Sodium (Porcine) (Heparin Sodium (Porcine)) 5,000 units SQ Q12 [facility] Stop: 04/02/20 20:59 Last Admin: 03/04/20 07:44 Dose: Not Given Documented by: Sodium Chloride (Nss 1000ml) 1,000 mls @ 80 mls/hr IV .[id number] [facility] Stop: 04/02/20 17:14 Last Admin: 03/04/20 06:29 Dose: 80 mls/hr Documented by: Cefazolin Sodium (Ancef 1000mg) 1,000 mg in 7.5 mls @ 2.5 mls/min IV Q8H [facility]; Protocol Stop: 03/11/20 17:59 Promethazine HCl 12.5 mg/ (Sodium Chloride) 50.5 mls @ 204 mls/hr IV Q6H PRN PRN Reason: Nausea And Vomiting Stop: 04/03/20 12:45 Insulin Aspart (Novolog Flexpen) 0 units SC ACHS [facility] Stop: 04/03/20 00:00 Insulin Human Isoph/Insulin Regular (Novolin 70/30 Regular) 15 units SC QDB [facility] Stop: 04/03/20 07:29 Insulin Human Isoph/Insulin Regular (Novolin 70/30 Regular) 12 units SC QDD [facility] Stop: 04/03/20 16:29 Levothyroxine Sodium (Synthroid) 100 mcg PO DAILYBB [facility] Stop: 04/03/20 06:29 Last Admin: 03/04/20 06:23 Dose: 100 mcg Documented by: Magnesium Hydroxide (Milk Of Magnesia) 30 ml PO BID [facility] Stop: 04/03/20 20:59 Metoprolol Tartrate (Lopressor) 12.5 mg PO Q2D@0900 [facility] Stop: 04/03/20 08:59 Last Admin: 03/04/20 13:06 Dose: 12.5 mg Documented by: Miscellaneous (Order Awaiting Action) 1 ea N/A QS [facility] Stop: 04/03/20 07:59 Last Admin: 03/04/20 07:44 Dose: Not Given Documented by: Miscellaneous (Carbohydrates For Hypoglycemia) 15 - 30 gm PO UD PRN PRN Reason: Hypoglycemia Treatment Stop: 04/02/20 20:29 Ondansetron HCl (Zofran) 4 mg IV 4XDQ4H PRN PRN Reason: Nausea Stop: 04/03/20 12:45 Senna/Docusate Sodium (Senokot S) 1 tab PO BID [facility] Stop: 04/03/20 20:59
--- NOTE | 2020-03-04 15:50 | Nephrology Consultation ---
Date of Consultation March 04, 2020 Assessment & Plan (1) End-stage renal disease on peritoneal dialysis: Patient with ESRD on PD. he had PD last night. He just had right inguinal hernia repair. Discussed case with Dr. Luo. he prefers to have abdomen rested for about 3 weeks for proper healing. Will switch to HD via left UA AVF. No need for HD today. Will do HD AM and plan d/c after setting up outpt HD (2) Right inguinal hernia: S/p hernia repair today. No need for PD today. We are changing to HD. PD catheter to be flushed weekly History of Present Illness Reason for Consultation: ESRD on PD and hernia Requesting Physician: Patel Holland MD Attending Physician: Paetl Holland MD History of Present Illness This is 79yoM with history of ESRD on PD who was admitted on 03/03 with partially obstructed right inguinal hernia which was reduced in the ER. he had right inguinal repair this morning. I saw him just before going to the OR. His other PMH includes DM, BPH, carotid stenosis and arthritis. He feels well denies any SOB or abdominal pain. No leg swelling. He had cycled PD last night for 10hrs with 2 litres fills and 4 exchanges using 2.5% dextrose. He has a left UA AVF and was on HD from March 2019 to July 2019 before starting PD. Allergies Allergy/AdvReac Type Severity Reaction Status Date / Time No Known Allergies Allergy Verified 03/03/20 15:08 Home Medications Home Medications Medication Instructions Recorded Confirmed Type allopurinol 300 mg tablet 300 mg PO HS tab 06/01/19 03/03/20 History atorvastatin 80 mg tablet 80 mg PO HS tab 06/01/19 03/03/20 History cholecalciferol (vitamin D3) 25 1,000 unit PO QAM cap 06/01/19 03/03/20 History mcg (1,000 unit) capsule furosemide 80 mg tablet 80 mg PO QAM tab 06/01/19 03/03/20 History insulin human U-100 NPH-regulr 0 unit SUBCUT AMPM ml 06/01/19 03/03/20 History 70-30 mix 100 unit/mL subcutaneous susp levothyroxine 100 mcg tablet 100 mcg PO QAM tab 06/01/19 03/03/20 History metoprolol tartrate 25 mg tablet 12.5 mg PO Q OTHER DAY tab 06/01/19 03/03/20 History linagliptin 5 mg tablet 5 mg PO QAM 01/04/20 03/03/20 History Patient History Surgical History (Updated 03/04/20 @ 13:44 by Kimberly Joseph RN) H/O right inguinal hernia repair Open right inguinal hernia repair with mesh. Dr. Luo 03/04/20 History of prostate surgery Family History Mother Diabetes Father Cancer Cardiac disorder Social History Preferred Language: [employer] Required: No Beliefs That Will Affect Care: None and Jainism marital status: Current Living Situation: Spouse current occupational status: retired Other Information That Helps Us Care for You: No Feels Safe at Home: Yes Safety Concerns: Feels Safe At This Time Smoking Status: Former smoker Tobacco Type: cigarettes ; Cigarettes Per Day: one pack a day ; Do You Dip or Chew Tobacco: No ; Second Hand Exposure: No ; Hx Alcohol Use: Yes Alcohol type: wine Hx Substance Use: No Review of Systems Review of Systems: All systems reviewed & are unremarkable except as noted in HPI & below Physical Exam Physical Exam: General exam: Appears comfortable, no acute distress HEENT: Pupils are equal and reactive to light Neck: No JVD, neck is supple trachea is midline Respiratory system: Clear breath sounds bilaterally. Gastrointestinal: Abdomen is soft, non distended, non tender, bowel sounds are present CVS: Regular rate and rhythm. No murmurs, rubs or gallops Musculoskeletal: No joint or muscle tenderness Extremities: Non tender, no edema, peripheral pulses are present Neuro: Oriented, no tremors, no focal neurological deficits Skin: No rashes Access: PD catheter and left UA AVF with good bruit Results & Data Vital Signs (Past 12 Hours) Vital Signs Temp Pulse Pulse Pulse Pulse Pulse Resp 03/04/20 14:29 36.5 C 72 03/04/20 13:30 36.5 C 81 20 03/04/20 12:44 36.5 C 78 20 03/04/20 12:02 36.6 C 77 75 20 03/04/20 11:45 36.6 C 76 18 03/04/20 11:30 36.6 C 76 18 03/04/20 11:20 79 17 03/04/20 11:10 78 20 03/04/20 11:03 36.5 C 80 19 03/04/20 08:45 36.8 C 73 20 03/04/20 08:00 76 03/04/20 07:00 36.8 C 74 18 03/04/20 06:45 36.8 C 74 18 BP Pulse Ox 03/04/20 14:29 105/49 L 100 03/04/20 13:30 134/63 100 03/04/20 12:44 124/53 L 100 03/04/20 12:02 129/63 100 03/04/20 11:45 129/55 L 100 03/04/20 11:30 132/50 L 100 03/04/20 11:20 130/52 L 100 03/04/20 11:10 137/58 L 100 03/04/20 11:03 124/52 L 100 03/04/20 08:45 118/59 L 100 03/04/20 08:00 03/04/20 07:00 138/63 03/04/20 06:45 Laboratory Results 03/04/20 06:14 03/04/20 06:14 Phosphorus 5.3 H Albumin 2.2 L
[2020-03-04] MEDS: INSULIN HUMAN 70% NPH/30% REGULAR SC SCH (17:07)
[2020-03-04] MEDS: CEFAZOLIN 1000MG 1,000 MG/7.5 ML SYR IV SCH (19:07)
[2020-03-04] MEDS: DOCUSATE SODIUM/SENNA 50/8.6MG TAB PO SCH (21:34)
[2020-03-04] MEDS: MAGNESIUM HYDROXIDE SUSP 30 ML UDC PO SCH (21:34)
[2020-03-04 23:19] LABS: Appearance Urine Clear (Clear); Bacteria Urine Automated Negative (Negative); Bilirubin Urine Negative (Negative); Blood Urine Negative (Negative); Color Urine Yellow; Glucose Urine UA 1+ (Negative); Ketones Urine Negative (Negative); Leukocyte Esterase Urine Negative (Negative); Nitrite Urine Negative (Negative); Protein Urine 2+ (Negative); RBC Urine Automated 0-4 /hpf (0-4); Specific Gravity Urine 1.014 (1.000-1.030); Urobilinogen Urine Negative (Negative); pH Urine 6.5 (4.5-7.5)
[2020-03-04] MEDS: HYDROCODONE/ACETAMOPHEN 5/325MG TAB PO PRN (23:37)
[2020-03-05] MEDS: CEFAZOLIN 1000MG 1,000 MG/7.5 ML SYR IV SCH ×2 (03:47→11:00)
[2020-03-05] MEDS: LEVOTHYROXINE SODIUM 100 MCG TABLET PO SCH (05:40)
[2020-03-05] MEDS: HYDROCODONE/ACETAMOPHEN 5/325MG TAB PO PRN ×2 (05:41→23:23)
[2020-03-05 05:45] LABS: Basophils # (auto) 0.06 K/uL (0-0.2); Basophils % (auto) 0.5 %; Eosinophils # (auto) 0.59 K/uL (0-0.5); Eosinophils % (auto) 5.1 %; Hematocrit (blood only) 30.6 % (42-52); Hemoglobin 10.2 g/dL (14.0-18.0); Immature Granulocytes # (auto) 0.03 K/uL (0.00-0.02); Immature Granulocytes % (auto) 0.3 %; Lymphocytes # (auto) 1.15 K/uL (1.2-3.4); Lymphocytes % (auto) 9.9 %; Mean Corpuscular Hemoglobin 33.4 pg (25-34); Mean Corpuscular Hgb Conc 33.3 g/dL (32-36); Mean Corpuscular Volume 100.3 fL (80-100); Mean Platelet Volume 9.4 fL (7.4-10.4); Monocytes # (auto) 0.59 K/uL (0.11-0.59); Monocytes % (auto) 5.1 %; Neutrophils # (auto) 9.24 K/uL (1.4-6.5); Neutrophils % (auto) 79.1 %; Platelet Count 223 K/uL (130-400); RDW Coefficient of Variation 14.6 % (11.5-14.5); RDW Standard Deviation 53.1 fL (36.4-46.3); Red Blood Count 3.05 M/uL (4.7-6.1); White Blood Count 11.66 K/uL (4.8-10.8)
[2020-03-05 06:33] LABS: Albumin Globulin Ratio 0.5 (0.9-2); Bilirubin,Total 0.3 mg/dl (0.2-1); Calcium 8.4 mg/dl (8.5-10.1); Creatinine Clr Calc Pharmacy 6.9 ml/min; Est GFR (African American) 6.1; Est GFR (Non-African American) 5.3; Globulin 4.3 gm/dl (2.5-4.0); Phosphorus 6.2 mg/dl (2.5-4.9); Potassium 4.3 mmol/L (3.5-5.1); Total Protein 6.3 gm/dl (6.4-8.2)
--- NOTE | 2020-03-05 07:37 | Surgery Progress Note ---
Date of Service March 05, 2020 Assessment & Plan (1) H/O right inguinal hernia repair: pt awake , alert, min pain Rt inguinal wound stable- no hematoma/bleeding ambulate as tolerated d/c home when ok with med/ nephro teams may need 1 more day, longer depending on dialysis situation surg d/c info in EMR and scripts to pharmacy I will cont to follow in hospital and 2 weeks in office Results & Data Vital Signs (Past 12 Hours) Vital Signs Temp Pulse Pulse Pulse Resp BP Pulse Ox 03/05/20 07:04 36.7 C 75 20 144/60 H 97 03/05/20 04:26 36.5 C 80 18 127/63 98 03/04/20 23:57 70 03/04/20 23:49 36.7 C 71 71 20 127/61 97 03/04/20 19:41 36.6 C 71 18 116/52 L 100 PG Care Time/CCT Total # of Minutes Spent Total Time Spent with Patient: Total time spent is greater than 50% in coordination of care (as documented) at patient's floor/unit and/or counseling patient: Coding Level of Care Code None Diagnoses H/O right inguinal hernia repair Z98.890; Z87.19
[2020-03-05] MEDS ORDERED: SODIUM CHLORIDE 0.9% 1000ML 1,000 ML IV PRN (07:44)
[2020-03-05 07:45] LABS: Hepatitis B Surface Ab Quant 366.13 mIU/mL (>or=10mIU/mL Immune); Hepatitis B Surface Antibody Immune
[2020-03-05] MEDS: SODIUM CHLORIDE 0.9% 1000ML 1,000 ML IV SCH (07:53)
[2020-03-05] MEDS: INSULIN ASPART 100 UNITS/ML 3 ML PEN SC SCH ×4 (07:55→20:11)
[2020-03-05 07:56] LABS: Hepatitis B Surface Antigen Neg (Neg)
[2020-03-05] MEDS: INSULIN HUMAN 70% NPH/30% REGULAR SC SCH ×2 (07:57→17:27)
[2020-03-05] MEDS: HEPARIN SOD 5,000 UNIT/0.5 ML VIAL SQ SCH ×2 (07:58→20:11)
--- NOTE | 2020-03-05 08:04 | Anesthesiology Progress Note ---
Date of Service March 05, 2020 Anesthesia Post Procedure Vital Signs Vital Signs: Temp Pulse Pulse Pulse Pulse Resp BP 03/05/20 07:04 36.7 C 75 20 144/60 H 03/05/20 04:26 36.5 C 80 18 127/63 03/04/20 23:57 70 03/04/20 23:49 36.7 C 71 71 20 127/61 03/04/20 19:41 36.6 C 71 18 116/52 L 03/04/20 15:57 72 03/04/20 15:43 36.5 C 73 18 102/53 L 03/04/20 14:29 36.5 C 72 20 105/49 L 03/04/20 13:30 36.5 C 81 20 134/63 03/04/20 12:44 36.5 C 78 20 124/53 L 03/04/20 12:02 36.6 C 77 75 20 129/63 03/04/20 11:45 36.6 C 76 18 129/55 L 03/04/20 11:30 36.6 C 76 18 132/50 L 03/04/20 11:20 79 17 130/52 L 03/04/20 11:10 78 20 137/58 L 03/04/20 11:03 36.5 C 80 19 124/52 L 03/04/20 08:45 36.8 C 73 20 118/59 L Pulse Ox 03/05/20 07:04 97 03/05/20 04:26 98 03/04/20 23:57 03/04/20 23:49 97 03/04/20 19:41 100 03/04/20 15:57 03/04/20 15:43 100 03/04/20 14:29 100 03/04/20 13:30 100 03/04/20 12:44 100 03/04/20 12:02 100 03/04/20 11:45 100 03/04/20 11:30 100 03/04/20 11:20 100 03/04/20 11:10 100 03/04/20 11:03 100 03/04/20 08:45 100 Notes Mental Status: alert / awake / arousable and participated in evaluation Nausea / Vomiting: adequately controlled Pain: adequately controlled Airway Patency, RR, SpO2: stable & adequate BP & HR: stable & adequate Hydration State: stable & adequate Anesthetic Complications: no major complications apparent
--- NOTE | 2020-03-05 09:49 | Nephrology Progress Note ---
Date of Service March 05, 2020 Assessment & Plan (1) End-stage renal disease on peritoneal dialysis: Patient with ESRD on PD. he had PD last night. He just had right inguinal hernia repair. Dr. Luo prefers to have abdomen rested for about 3 weeks for proper healing. Will switch to HD via left UA AVF. Will do HD today for 3-1/2 hours and target UF of 1 L. Patient will need to be set up for outpatient dialysis in [place]. Case management follow-up. (2) Right inguinal hernia: S/p hernia repair 03/04/2020. No need for PD for 1 month. Stop IV fluids. PD catheter to be flushed weekly Admission and Anticipated Discharge Date Admission Date: March 03, 2020 Subjective Patient had hernia repair yesterday. He feels better today. He has preoperative pain. He is having second thoughts about PD. He says the hernia started developing soon after starting PD. No shortness of breath. Review of Systems Review of Systems: All systems reviewed & are unremarkable except as noted in HPI & below Physical Exam Physical Exam: General exam: Appears comfortable, no acute distress HEENT: Pupils are equal and reactive to light Neck: No JVD, neck is supple trachea is midline Respiratory system: Clear breath sounds bilaterally. Gastrointestinal: Abdomen is soft, non distended, non tender, bowel sounds are present CVS: Regular rate and rhythm. No murmurs, rubs or gallops Musculoskeletal: No joint or muscle tenderness Extremities: Non tender, no edema, peripheral pulses are present Neuro: Oriented, no tremors, no focal neurological deficits Skin: No rashes Access: Left upper arm AV fistula with good bruit and PD catheter Results & Data ([facility]) Vital Signs (Past 12 Hours) Vital Signs Temp Pulse Pulse Pulse Resp BP Pulse Ox 03/05/20 07:04 36.7 C 75 20 144/60 H 97 03/05/20 04:26 36.5 C 80 18 127/63 98 03/04/20 23:57 70 03/04/20 23:49 36.7 C 71 71 20 127/61 97 Laboratory Results 03/05/20 05:16 03/05/20 03/05/20 05:16 05:16 WBC 11.66 H RBC 3.05 L MCV 100.3 H MCH 33.4 MCHC 33.3 RDW Std Deviation 53.1 H RDW Coeff of Manoj 14.6 H Plt Count 223 MPV 9.4 Phosphorus 6.2 H Albumin 2.0 L
[2020-03-05] MEDS: DOCUSATE SODIUM/SENNA 50/8.6MG TAB PO SCH ×2 (11:00→20:11)
[2020-03-05] MEDS: MAGNESIUM HYDROXIDE SUSP 30 ML UDC PO SCH ×2 (11:00→20:12)
--- NOTE | 2020-03-05 12:20 | Hospitalist Progress Note ---
Date of Service March 05, 2020 Assessment & Plan (1) Partial obstruction of small intestine: 2 days history of lower abdominal discomfort Lower abdominal pain mostly in right inguinal area since this morning CT did show partial small bowel obstruction secondary to right inguinal hernia The hernia was reduced by the ER physician Surgery consulted-appreciate input Possible right inguinal hernia surgery tomorrow There is no medical contraindication for the proposed surgery which carries ave rage risk given other comorbid condition Status post right open inguinal hernia repair by Dr. Luo, POD #1 Remains stable (2) Right inguinal hernia: Management as above (3) End-stage renal disease on peritoneal dialysis: Has been on peritoneal dialysis every night Nephrology consulted Likely to need for hemodialysis following surgery and the patient is agreeable to the Appreciate nephrology input and recommended Will have hemodialysis through left upper extremity aVF as advised by pesticide chemist (4) COPD (chronic obstructive pulmonary disease) with chronic bronchitis: Does not have any acute exacerbation We will put him on as needed nebulized bronchodilators (5) Diabetes mellitus: We will continue his current medications Blood sugar AC at bedtime (6) Pure hypercholesterolemia: Will hold statin for tonight (7) Hypertension: Continue current medication (8) Hypothyroidism: Continue supplement (9) Narcolepsy: History of narcolepsy without any serious symptoms (10) Obstructive sleep apnea: No acute symptoms Can use his own CPAP DVT prophylax Subcu heparin CODE STATUS Full PT and OT have been requested Discharge will depend on surgery service Social service for discharge disposition Admission and Anticipated Discharge Date Admission Date: March 03, 2020 Subjective 03/04/2020 Patient was seen and examined in medical telemetry unit Is a status post repair of the right inguinal hernia Denies any complaints Waiting for nephrology evaluation 03/05/2020 Patient was seen and examined in medical telemetry unit He is a status post right inguinal hernia repair Complains some pain of the right groin but denies any other symptoms Review of Systems Review of Systems: All systems reviewed and are unremarkable except as noted below Gastrointestinal: + abdominal pain; no bloating, no nausea and no vomiting Physical Exam Physical Exam: Lying in bed comfortably but looks very anxious Constitutional: well developed, well nourished and + ill appearing; no acute distress Eyes: PERRL, conjunctivae normal, anicteric sclerae ENMT: external ear and nose normal, oropharynx normal Neck: trachea midline, no thyromegaly Respiratory: normal respiratory effort; no respiratory distress Auscultation: lungs clear to auscultation bilaterally Cardiovascular: Rate/Rhythm: regular rate and regular rhythm Heart Sounds: no murmur Gastrointestinal (Abdomen): Inspection/Auscultation: + abdomen distended and normal bowel sounds Percussion/Palpation: + abdomen tender (Mildly tender right inguinal region) and abdomen soft; no guarding and abdomen not rigid Musculoskeletal: Right foot gangrenous toes-dry gangrene without any infection Neurologic: moves all extremities; no focal motor deficits Lymphatic: no cervical or axillary lymphadenopathy Results & Data Results & Data ([facility]) Vital Signs (Past 12 Hours) Vital Signs Temp Pulse Resp BP Pulse Ox 03/05/20 07:04 36.7 C 75 20 144/60 H 97 03/05/20 04:26 36.5 C 80 18 127/63 98 Laboratory Results Short CBC 03/05/20 Range/Units 05:16 WBC 11.66 H (4.8-10.8) K/uL Hgb 10.2 L (14.0-18.0) g/dL Hct 30.6 L (42-52) % Plt Count 223 (130-400) K/uL BMP 03/05/20 05:16 Sodium 138 Potassium 4.3 Chloride 107 Carbon Dioxide 23 BUN 60 H Creatinine 8.53 H* D Glucose 92 Calcium 8.4 L Liver Function 03/05/20 Range/Units 05:16 Total Bilirubin 0.3 (0.2-1) mg/dl AST 19 (15-37) U/L ALT 21 (12-78) U/L Alkaline Phosphatase 88 (45-117) U/L Albumin 2.0 L (3.4-5.0) gm/dl Urine 03/04/20 Range/Units 21:50 Urine Color Yellow Urine Appearance Clear (Clear) Urine pH 6.5 (4.5-7.5) Ur Specific [place] 1.014 (1.000-1.030) Urine Protein 2+ H (Negative) Urine Glucose (UA) 1+ H (Negative) Medications Administered Current Inpatient Medications Hydrocodone Bitart/Acetaminophen ([place] 5/325) 1 tab PO Q4HWA PRN PRN Reason: Pain Stop: 03/18/20 12:45 Last Admin: 03/05/20 05:41 Dose: 1 tab Documented by: Hydrocodone Bitart/Acetaminophen ([place] 5/325) 2 tab PO Q4HWA PRN PRN Reason: Pain Stop: 03/18/20 12:45 Albuterol (Ventolin 0.083% 2.5mg/3ml) 2.5 mg NEB Q6R PRN PRN Reason: Wheezing Stop: 04/02/20 17:30 Dextrose (Dextrose 50%) 25 - 50 ml IV UD PRN; Protocol PRN Reason: Hypoglycemia Protocol Stop: 04/02/20 20:29 Glucagon (Glucagen) 1 mg IM UD PRN; Protocol PRN Reason: Hypoglycemia Protocol Stop: 04/02/20 20:29 Glucose (Glucose 40%) 15 - 30 gm PO UD PRN; Protocol PRN Reason: Hypoglycemia Protocol Stop: 04/02/20 20:29 Glucose (Dex4 Glucose) 4 - 8 tabs PO UD PRN; Protocol PRN Reason: Hypoglycemia Protocol Stop: 04/02/20 20:29 Heparin Sodium (Porcine) (Heparin Sodium (Porcine)) 5,000 units SQ Q12 [facility] Stop: 04/02/20 20:59 Last Admin: 03/05/20 07:58 Dose: 5,000 units Documented by: Cefazolin Sodium (Ancef 1000mg) 1,000 mg in 7.5 mls @ 2.5 mls/min IV Q8H [facility]; Protocol Stop: 03/11/20 17:59 Last Admin: 03/05/20 11:00 Dose: 2.5 mls/min Documented by: Promethazine HCl 12.5 mg/ (Sodium Chloride) 50.5 mls @ 204 mls/hr IV Q6H PRN PRN Reason: Nausea And Vomiting Stop: 04/03/20 12:45 Sodium Chloride (Nss 1000ml) 1,000 mls @ 0 mls/hr IV .Q0M PRN PRN Reason: For Hemodialysis Use ONLY Stop: 03/05/20 13:43 Insulin Aspart (Novolog Flexpen) 0 units SC ACHS [facility] Stop: 04/03/20 00:00 Last Admin: 03/05/20 07:55 Dose: Not Given Documented by: Insulin Human Isoph/Insulin Regular (Novolin 70/30 Regular) 15 units SC QDB [facility] Stop: 04/03/20 07:29 Last Admin: 03/05/20 07:57 Dose: 15 units Documented by: Insulin Human Isoph/Insulin Regular (Novolin 70/30 Regular) 12 units SC QDD [facility] Stop: 04/03/20 16:29 Last Admin: 03/04/20 17:07 Dose: 12 units Documented by: Levothyroxine Sodium (Synthroid) 100 mcg PO DAILYBB [facility] Stop: 04/03/20 06:29 Last Admin: 03/05/20 05:40 Dose: 100 mcg Documented by: Magnesium Hydroxide (Milk Of Magnesia) 30 ml PO BID [facility] Stop: 04/03/20 20:59 Last Admin: 03/05/20 11:00 Dose: Not Given Documented by: Metoprolol Tartrate (Lopressor) 12.5 mg PO Q2D@0900 [facility] Stop: 04/03/20 08:59 Last Admin: 03/04/20 13:06 Dose: 12.5 mg Documented by: Miscellaneous (Order Awaiting Action) 1 ea N/A QS [facility] Stop: 04/03/20 07:59 Last Admin: 03/05/20 07:55 Dose: Not Given Documented by: Miscellaneous (Carbohydrates For Hypoglycemia) 15 - 30 gm PO UD PRN PRN Reason: Hypoglycemia Treatment Stop: 04/02/20 20:29 Ondansetron HCl (Zofran) 4 mg IV 4XDQ4H PRN PRN Reason: Nausea Stop: 04/03/20 12:45 Senna/Docusate Sodium (Senokot S) 1 tab PO BID [facility] Stop: 04/03/20 20:59 Last Admin: 03/05/20 11:00 Dose: 1 tab Documented by:
[2020-03-05] MEDS ORDERED: CEFAZOLIN 1000MG 1,000 MG/7.5 ML SYR IV SCH (21:00)
[2020-03-06] MEDS: LEVOTHYROXINE SODIUM 100 MCG TABLET PO SCH (05:53)
[2020-03-06 06:30] LABS: Hematocrit (blood only) 31.7 % (42-52); Hemoglobin 10.5 g/dL (14.0-18.0); Mean Corpuscular Hemoglobin 32.9 pg (25-34); Mean Corpuscular Hgb Conc 33.1 g/dL (32-36); Mean Corpuscular Volume 99.4 fL (80-100); Mean Platelet Volume 8.9 fL (7.4-10.4); Platelet Count 185 K/uL (130-400); RDW Coefficient of Variation 14.6 % (11.5-14.5); RDW Standard Deviation 52.6 fL (36.4-46.3); Red Blood Count 3.19 M/uL (4.7-6.1); White Blood Count 10.09 K/uL (4.8-10.8)
--- NOTE | 2020-03-06 08:39 | Surgery Progress Note ---
Date of Service March 06, 2020 Assessment & Plan (1) H/O right inguinal hernia repair: doing well has fistula for HD Rt ing incision intact d/c home when ok with med team- today from my standpt instr in EMR, scripts to pharmacy Results & Data Vital Signs (Past 12 Hours) Vital Signs Temp Pulse Pulse Resp BP Pulse Ox 03/06/20 07:37 36.5 C 74 16 126/62 96 03/06/20 04:41 37.1 C 66 18 146/74 H 96 03/06/20 00:00 90 03/05/20 23:00 37.1 C 91 H 20 124/66 97 PG Care Time/CCT Total # of Minutes Spent Total Time Spent with Patient: Total time spent is greater than 50% in coordination of care (as documented) at patient's floor/unit and/or counseling patient: Coding Level of Care Code None Diagnoses H/O right inguinal hernia repair Z98.890; Z87.19
[2020-03-06] MEDS: DOCUSATE SODIUM/SENNA 50/8.6MG TAB PO SCH (08:43)
[2020-03-06] MEDS: METOPROLOL TARTRATE 25 MG TAB PO SCH (08:43)
[2020-03-06] MEDS: MAGNESIUM HYDROXIDE SUSP 30 ML UDC PO SCH (08:43)
[2020-03-06] MEDS: INSULIN ASPART 100 UNITS/ML 3 ML PEN SC SCH (08:44)
[2020-03-06] MEDS: INSULIN HUMAN 70% NPH/30% REGULAR SC SCH (08:44)
[2020-03-06] MEDS: HEPARIN SOD 5,000 UNIT/0.5 ML VIAL SQ SCH (08:45)
--- NOTE | 2020-03-06 10:25 | Nephrology Progress Note ---
Date of Service March 06, 2020 Assessment & Plan (1) End-stage renal disease on peritoneal dialysis: Patient with ESRD on PD. he had PD 03/04/20 night. He had right inguinal hernia repair 03/05. Dr. Luo prefers to have abdomen rested for about 3 weeks for proper healing. Will switch to HD via left UA AVF. had HD yesterday for 3- 1/2 hours and UF of 1 L. Patient is set up for outpatient dialysis in [place] starting tomorrow. From renal standpoint ok to discharge (2) Right inguinal hernia: S/p hernia repair 03/04/2020. No need for PD for 1 month. PD catheter to be flushed weekly Admission and Anticipated Discharge Date Admission Date: March 03, 2020 Subjective Feels better. less pain today. No SOB. had HD yesterday Review of Systems Review of Systems: All systems reviewed & are unremarkable except as noted in HPI & below Physical Exam Physical Exam: General exam: Appears comfortable, no acute distress HEENT: Pupils are equal and reactive to light Neck: No JVD, neck is supple trachea is midline Respiratory system: Clear breath sounds bilaterally. Gastrointestinal: Abdomen is soft, non distended, non tender, bowel sounds are present CVS: Regular rate and rhythm. No murmurs, rubs or gallops Musculoskeletal: No joint or muscle tenderness Extremities: Non tender, no edema, peripheral pulses are present Neuro: Oriented, no tremors, no focal neurological deficits Skin: No rashes Access: left UA AVF Results & Data ([facility]) Vital Signs (Past 12 Hours) Vital Signs Temp Pulse Pulse Resp BP Pulse Ox 03/06/20 07:37 36.5 C 74 16 126/62 96 03/06/20 04:41 37.1 C 66 18 146/74 H 96 03/06/20 00:00 90 03/05/20 23:00 37.1 C 91 H 20 124/66 97 Laboratory Results 03/05/20 05:16 03/06/20 06:18 WBC 10.09 RBC 3.19 L MCV 99.4 MCH 32.9 MCHC 33.1 RDW Std Deviation 52.6 H RDW Coeff of Manoj 14.6 H Plt Count 185 MPV 8.9
--- NOTE | 2020-03-06 10:29 | Hospitalist Progress Note ---
Date of Service March 06, 2020 Assessment & Plan (1) Partial obstruction of small intestine: 2 days history of lower abdominal discomfort Lower abdominal pain mostly in right inguinal area CT did show partial small bowel obstruction secondary to right inguinal hernia The hernia was reduced by the ER physician Surgery consulted-appreciate input Status post right open inguinal hernia repair by Dr. Luo, on 03/04/2020 Tolerated well, plan to follow up w/ surgrey in 1-2 weeks as outpt (2) Right inguinal hernia: Management as above (3) End-stage renal disease on peritoneal dialysis: Has been on peritoneal dialysis Nephrology consulted Need for hemodialysis following surgery, to let abdomen rest, and the patient is agreeable Hemodialysis through left upper extremity AVF as advised by silica spray mixer, had HD yesterday (03/05), w/ UF of 1L Plan for outpatient HD in [place], Wednesday // Wednesday The next dialysis planned for tomorrow, 11:30, patient is aware (4) COPD (chronic obstructive pulmonary disease) with chronic bronchitis: Does not have any acute exacerbation Nebulized bronchodilators prn while inpt (5) Diabetes mellitus: We will continue his current medications Blood sugar AC at bedtime (6) Pure hypercholesterolemia: Held statin, can resume on d/c (7) Hypertension: Continue current medication (8) Hypothyroidism: Continue home meds (9) Narcolepsy: History of narcolepsy without any serious symptoms (10) Obstructive sleep apnea: No acute symptoms Can use his own CPAP DVT prophylax Subcu heparin CODE STATUS Full Dispo: per PT, safe to d/c home Admission and Anticipated Discharge Date Admission Date: March 03, 2020 Subjective No acute events overnight. Patient is lying in bed, in no acute distress. He underwent HD yesterday, using his left upper extremity AV fistula, UF 1L. It is recommended, that he is not using PD, for next 3 weeks. He is set up now for HD in [place], starting tomorrow. HD set up for Wednesday at 1130. Patient is aware. Discussed this morning with Dr. Mcguire, from nephrology, that patient is safe for discharge, no changes in medications on discharge planned. He will also need to follow-up with the surgeon, Dr. Luo, regarding his right inguinal hernia repair, in the next 1 to 2 weeks. Instructions already in discharge summary per Dr. Luo. Patient feels well, he is inquiring about going home. He denies any fevers, chills, chest pain, shortness of breath, abdominal pain. Review of Systems Review of Systems: All systems reviewed & are unremarkable except as noted in HPI & below Constitutional: no fever and no chills Respiratory: no cough and no dyspnea Cardiovascular: no chest pain, no palpitations and no edema Gastrointestinal: no abdominal pain and no vomiting Physical Exam Physical Exam: Physical Exam: elderly male, lying in bed in NAD Constitutional: well developed, well nourished and + ill appearing; no acute distress Eyes: PERRL, EOMI, conjunctivae normal, anicteric sclerae ENMT: external ear and nose normal, oropharynx normal Neck: trachea midline, no thyromegaly Respiratory: normal respiratory effort; no respiratory distress Auscultation: lungs clear to auscultation bilaterally, no wheezing, rhonchi or crackles noted Cardiovascular: Rate/Rhythm: regular rate and regular rhythm Heart Sounds: + soft murmur at rusb Gastrointestinal (Abdomen): Inspection/Auscultation: + normal bowel sounds Percussion/Palpation: + soft, nontender, nondistended, clean dry dressings applied over right groin. PD catheter with clean dry dressings, no erythema, edema around catheter noted Musculoskeletal: moves all extremities spontaneously, L UA AVF, Right foot gangrenous toes-dry gangrene without any infection Skin: warm, dry, no rashes, but gangrenous toes as above Neurologic: alert and oriented x3, no facial asymmetry, speech fluent, moves all extremities; no focal motor deficits Results & Data Results & Data ([facility]) Vital Signs (Past 12 Hours) Vital Signs Temp Pulse Pulse Resp BP Pulse Ox 03/06/20 07:37 36.5 C 74 16 126/62 96 03/06/20 04:41 37.1 C 66 18 146/74 H 96 03/06/20 00:00 90 03/05/20 23:00 37.1 C 91 H 20 124/66 97 Laboratory Results 03/06/20 03/06/20 03/05/20 Range/Units 07:15 06:18 19:58 WBC 10.09 (4.8-10.8) K/uL RBC 3.19 L (4.7-6.1) M/uL Hgb 10.5 L (14.0-18.0) g/dL Hct 31.7 L (42-52) % MCV 99.4 (80-100) fL MCH 32.9 (25-34) pg MCHC 33.1 (32-36) g/dL RDW Std Deviation 52.6 H (36.4-46.3) fL RDW Coeff of Manoj 14.6 H (11.5-14.5) % Plt Count 185 (130-400) K/uL MPV 8.9 (7.4-10.4) fL POC Glucose 112 H 116 H (70-99) mg/dl 03/05/20 03/05/20 Range/Units 16:11 11:09 WBC (4.8-10.8) K/uL RBC (4.7-6.1) M/uL Hgb (14.0-18.0) g/dL Hct (42-52) % MCV (80-100) fL MCH (25-34) pg MCHC (32-36) g/dL RDW Std Deviation (36.4-46.3) fL RDW Coeff of Manoj (11.5-14.5) % Plt Count (130-400) K/uL MPV (7.4-10.4) fL POC Glucose 121 H 150 H (70-99) mg/dl Medications Administered Current Inpatient Medications Hydrocodone Bitart/Acetaminophen ([place] 5/325) 1 tab PO Q4HWA PRN PRN Reason: Pain Stop: 03/18/20 12:45 Last Admin: 03/05/20 23:23 Dose: 1 tab Documented by: Hydrocodone Bitart/Acetaminophen ([place] 5/325) 2 tab PO Q4HWA PRN PRN Reason: Pain Stop: 03/18/20 12:45 Albuterol (Ventolin 0.083% 2.5mg/3ml) 2.5 mg NEB Q6R PRN PRN Reason: Wheezing Stop: 04/02/20 17:30 Dextrose (Dextrose 50%) 25 - 50 ml IV UD PRN; Protocol PRN Reason: Hypoglycemia Protocol Stop: 04/02/20 20:29 Glucagon (Glucagen) 1 mg IM UD PRN; Protocol PRN Reason: Hypoglycemia Protocol Stop: 04/02/20 20:29 Glucose (Glucose 40%) 15 - 30 gm PO UD PRN; Protocol PRN Reason: Hypoglycemia Protocol Stop: 04/02/20 20:29 Glucose (Dex4 Glucose) 4 - 8 tabs PO UD PRN; Protocol PRN Reason: Hypoglycemia Protocol Stop: 04/02/20 20:29 Heparin Sodium (Porcine) (Heparin Sodium (Porcine)) 5,000 units SQ Q12 PARISA Stop: 04/02/20 20:59 Last Admin: 03/06/20 08:45 Dose: 5,000 units Documented by: Promethazine HCl 12.5 mg/ (Sodium Chloride) 50.5 mls @ 204 mls/hr IV Q6H PRN PRN Reason: Nausea And Vomiting Stop: 04/03/20 12:45 Cefazolin Sodium (Ancef 1000mg) 1,000 mg in 7.5 mls @ 2.5 mls/min IV Q24H PARISA; Protocol Stop: 03/12/20 20:59 Last Admin: 03/05/20 20:10 Dose: 2.5 mls/min Documented by: Insulin Aspart (Novolog Flexpen) 0 units SC ACHS [facility] Stop: 04/03/20 00:00 Last Admin: 03/06/20 08:44 Dose: Not Given Documented by: Insulin Human Isoph/Insulin Regular (Novolin 70/30 Regular) 15 units SC QDB [facility] Stop: 04/03/20 07:29 Last Admin: 03/06/20 08:44 Dose: 15 units Documented by: Insulin Human Isoph/Insulin Regular (Novolin 70/30 Regular) 12 units SC QDD [facility] Stop: 04/03/20 16:29 Last Admin: 03/05/20 17:27 Dose: 12 units Documented by: Levothyroxine Sodium (Synthroid) 100 mcg PO DAILYBB [facility] Stop: 04/03/20 06:29 Last Admin: 03/06/20 05:53 Dose: 100 mcg Documented by: Magnesium Hydroxide (Milk Of Magnesia) 30 ml PO BID [facility] Stop: 04/03/20 20:59 Last Admin: 03/06/20 08:43 Dose: 30 ml Documented by: Metoprolol Tartrate (Lopressor) 12.5 mg PO Q2D@0900 [facility] Stop: 04/03/20 08:59 Last Admin: 03/06/20 08:43 Dose: 12.5 mg Documented by: Miscellaneous (Order Awaiting Action) 1 ea N/A QS [facility] Stop: 04/03/20 07:59 Last Admin: 03/06/20 08:45 Dose: Not Given Documented by: Miscellaneous (Carbohydrates For Hypoglycemia) 15 - 30 gm PO UD PRN PRN Reason: Hypoglycemia Treatment Stop: 04/02/20 20:29 Ondansetron HCl (Zofran) 4 mg IV 4XDQ4H PRN PRN Reason: Nausea Stop: 04/03/20 12:45 Senna/Docusate Sodium (Senokot S) 1 tab PO BID [facility] Stop: 04/03/20 20:59 Last Admin: 03/06/20 08:43 Dose: 1 tab Documented by:
--- NOTE | 2020-03-06 10:52 | Discharge Summary ---
Date of Service March 06, 2020 Admission HPI Per Admitting Provider Is an 79-year-old male with significant past medical history including end-stage renal disease on peritoneal dialysis, 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 Since this morning he has been complaining of more pain right lower quadrant and in the right inguinal area with nausea and he noticed a lump about the size of a fist when he laid down with the pain. No vomiting and no fever and/or chills. No chest pain and/or palpitation, no cough and/or phlegm. In ER CAT scan of the abdomen and pelvis did show obstructed right inguinal hernia which was successfully reduced by the ER physician. He was evaluated by on-call surgeon, Dr. Luo and he will be taken to or to fix hernia tomorrow. Admission Exam Per Admitting Provider Physical Exam: Lying in bed comfortably but looks very anxious Constitutional: well developed, well nourished and + ill appearing; no acute distress Eyes: PERRL, conjunctivae normal, anicteric sclerae ENMT: external ear and nose normal, oropharynx normal Neck: trachea midline, no thyromegaly Respiratory: normal respiratory effort; no respiratory distress Auscultation: lungs clear to auscultation bilaterally Cardiovascular: Rate/Rhythm: regular rate and regular rhythm Heart Sounds: no murmur Gastrointestinal (Abdomen): Inspection/Auscultation: + abdomen distended and normal bowel sounds Percussion/Palpation: + abdomen tender (Mildly tender right inguinal region) and abdomen soft; no guarding and abdomen not rigid Musculoskeletal: No acute arthritis in any joints Neurologic: moves all extremities; no focal motor deficits Lymphatic: no cervical or axillary lymphadenopathy Principal Diagnosis Inguinal hernia, partial bowel obstruction now s/p surgical repair ESRD on PD/HD Discharge Exam Physical Exam: elderly male, lying in bed in NAD Constitutional: well developed, well nourished and + ill appearing; no acute distress Eyes: PERRL, EOMI, conjunctivae normal, anicteric sclerae ENMT: external ear and nose normal, oropharynx normal Neck: trachea midline, no thyromegaly Respiratory: normal respiratory effort; no respiratory distress Auscultation: lungs clear to auscultation bilaterally, no wheezing, rhonchi or crackles noted Cardiovascular: Rate/Rhythm: regular rate and regular rhythm Heart Sounds: + soft murmur at rusb Gastrointestinal (Abdomen): Inspection/Auscultation: + normal bowel sounds Percussion/Palpation: + soft, nontender, nondistended, clean dry dressings appl ied over right groin. PD catheter with clean dry dressings, no erythema, edema around catheter noted Musculoskeletal: moves all extremities spontaneously, L UA AVF, Right foot gangrenous toes-dry gangrene without any infection Skin: warm, dry, no rashes, but gangrenous toes as above Neurologic: alert and oriented x3, no facial asymmetry, speech fluent, moves all extremities; no focal motor deficits Discharge Data Allergies Allergy/AdvReac Type Severity Reaction Status Date / Time No Known Allergies Allergy Verified 03/03/20 15:08 Consultations 03/04/20 09:48 Consult Nephrology Routine 03/04/20 12:46 Consult Case Management - Discharge Planning Routine Procedures Performed Operation Date: 03/04/20 07:30 Actual Procedures p Right Open Inguinal Hernia Repair(Right) - Federico Luo MD, FACS Ordered Studies 03/03/20 14:39 CT abd pelvis wo con Stat MPRESSION: 1. Moderate-sized right inguinal hernia contains mesenteric fat, free fluid and a prominent stool-filled loop of ileum suggestive of partial obstruction. 2. Moderate sized left inguinal hernia contains a nonobstructed loop of sigmoid colon. 3. No high-grade small bowel obstruction, pneumoperitoneum or pneumatosis. 4. Normal appendix. 5. Colonic diverticulosis without acute diverticulitis. 6. Nonobstructing right nephrolithiasis. 7. Indeterminate intermediate attenuating 1.7 cm lesion of the superior pole right kidney suggestive of complex cyst versus solid lesion. Hospital Course (1) Partial obstruction of small intestine: 2 days history of lower abdominal discomfort Lower abdominal pain mostly in right inguinal area CT did show partial small bowel obstruction secondary to right inguinal hernia The hernia was reduced by the ER physician Surgery consulted-appreciate input Status post right open inguinal hernia repair by Dr. Luo, on 03/04/2020 Tolerated well, plan to follow up w/ surgrey in 1-2 weeks as outpt (2) Right inguinal hernia: Management as above (3) End-stage renal disease on peritoneal dialysis: Has been on peritoneal dialysis Nephrology consulted Need for hemodialysis following surgery, to let abdomen rest, and the patient is agreeable Hemodialysis through left upper extremity AVF as advised by nozzle tender, had HD yesterday (03/05), w/ UF of 1L Plan for outpatient HD in [place], Wednesday // Wednesday The next dialysis planned for tomorrow, 11:30, patient is aware Follow up w/ nephrology also regarding 1.7 cm lesion at the superior pole of R kidney (poss. complex cyst vs. solid lesion). (4) COPD (chronic obstructive pulmonary disease) with chronic bronchitis: Does not have any acute exacerbation Nebulized bronchodilators prn while inpt (5) Diabetes mellitus: Continue his current medications Blood sugar AC at bedtime while inpt (6) Pure hypercholesterolemia: Held statin, can resume on d/c (7) Hypertension: Continue current medication (8) Hypothyroidism: Continue home meds (9) Narcolepsy: History of narcolepsy without any serious symptoms (10) Obstructive sleep apnea: No acute symptoms Can use his own CPAP Dispo: per PT, safe to d/c home Total Time Total Time Spent Total Time Spent (In Minutes): 40 Total Time Includes: Examination of the Patient, Discharge Planning, Medication Reconciliation and Communication With Other Providers Discharge Plan Discharge Items Patient Disposition: Home - Home Health Services Reason For Visit: OBSTRUCTED RT INGUINAL HERNIA,CKD ON PD Discharge Diagnosis: Inguinal hernia, partial bowel obstruction, CKD Activity: As commented below Activity Comment: light activity for 4 weeks Lifting: No more than 10 pounds Bathing Comment: may shower Exercise Comment: wait 4 wks Driving/Machine Use: 1 week Non-emergency contact: Primary Care Provider and Surgeon Call non-emergency contact if: your pain is not controlled, your temperature is above 101 and your wound has increased drainage Follow-up/Referrals: Yvon Swan MD [Primary Care Provider] - (Please call your primary care to see if you need to make a follow up appointment.) Diet: Dialysis Renal Addtl Attending Provider Instructions: SPECIAL CARE INSTRUCTIONS: * Cover incisions and change daily for comfort/drainage. * Leave steri strips in place Avoid constipation- * May Use Senokot S and Milk of Magnesium twice daily as directed on the package * * May use ibuprofen for pain as tolerated. * Expect some swelling and bruising. Call your doctor if: * Temperature above 101 degrees * Pain not relieved by pain medicine ordered * There is increased drainage or redness from any incision * You have any unanswered questions or concerns [phone]. FOLLOW UP VISIT: If not already scheduled, please call the office for a follow-up visit. OFFICE PHONE NUMBER: Dr. Luo Office for 2 weeks- suture removal Addtl Home Care Attendant Provider Instructions: Hemodialysis was set up in [place], for Wednesday, , Wednesday, at 11:30. Your next dialysis is tomorrow at 11:30. Follow-up with your kidney doctor ([facility]) in 1 to 2 weeks. Your peritoneal dialysis catheter should be flushed weekly. You also need to follow-up with Dr. Luo, surgeon, regarding your hernia repair, in [address] Luo, continue taking antibiotics as prescribed, and you can take pain medications as needed- these were sent to your pharmacy, see further instructions from Dr. Luo above. Make sure you have a soft stool, bowel movements daily. You should not strain. You can use dyug-jne-ywjznot stool softeners, such as MiraLAX as needed. Follow-up with your primary care doctor in the next 1 to 2 weeks. Pending Studies at Discharge: No Stand-Alone Forms: My [facility] [employer], Smoking Cessation Medications and DC Order Prescriptions: New hydrocodone-acetaminophen [[place]] 5-325 mg tablet 1 - 2 tab PO Q6H PRN (Reason: pain) Qty: 30 RF: 0 cephalexin [Keflex] 500 mg capsule 500 mg PO TID 7 Days Qty: 21 RF: 0 Continued metoprolol tartrate 25 mg tablet 12.5 mg PO Q OTHER DAY RF: 0 cholecalciferol (vitamin D3) 1,000 unit capsule 1,000 unit PO QAM RF: 0 allopurinol 300 mg tablet 300 mg PO HS RF: 0 furosemide 80 mg tablet 80 mg PO QAM RF: 0 levothyroxine 100 mcg tablet 100 mcg PO QAM RF: 0 insulin NPH and regular human 100 unit/mL (70-30) suspension 0 unit subcut AMPM RF: 0 atorvastatin 80 mg tablet 80 mg PO HS RF: 0 Tradjenta 5 mg tablet 5 mg PO QAM RF: 0 Discharge Orders: Discharge Order (Routine); Ordered 03/06/20 Ordered By: Ibrahima Luna Admission Data Admit Date/Time: 03/03/20 17:13 Attending Provider: Ibrahima Luna Admit Provider: Patel Holland Primary Care Provider: Yvon Swan Other Providers: Yakov Mcguire Manabendra Other Interventions: Discharge Summary Assessment (RN) Last Done: 03/06/20 11:13
== END 2020-03-06 12:25 | disposition home health service (06) | DRG 350 ==
LOC: ED 14:07 → 2W 17:13 → SUATTDRO 17:13 → 2W 17:35

== ENCOUNTER 2020-08-02 13:18 | Inpatient (IN) ==
[2020-08-02] MEDS ORDERED: fentaNYL citrate 100 MCG/2 ML VIAL IV ONE (13:32)
[2020-08-02] MEDS ORDERED: ASPIRIN CHEW 324 MG PO STA (13:32)
[2020-08-02] MEDS ORDERED: PANTOprazole 80 MG in DEXTROSE 5% 100 ML IV ONE (13:36)
[2020-08-02] MEDS ORDERED: PANTOPRAZOLE BOLUS/DRIP 1 EA IV STA (13:36)
--- NOTE | 2020-08-02 13:36 | Emergency Department Note ---
Impression & Plan Acute non-ST elevation myocardial infarction (NSTEMI), Unstable angina, Acute upper GI bleeding ED Provider Note NAME: SPENCER PRASAD AGE: 80 SEX: M : 1940 ARRIVES VIA: Ambulance INFORMANT: Patient ED PROVIDER(S): Rogerio Silverman DO CHIEF COMPLAINT: Chest pain HPI: Patient is an 80-year-old male who presents the ER for precordial chest pain. He describes as a pressure. Located in the mid sternum. Associated with shortness of breath. He did become nauseated and did vomit. He notes he has been getting this off and on for the past several days to a week with any kind of exertion. It resolves with rest. No arm or jaw pain. Denies any belly helder n. No dysuria urgency or frequency. He does get dialysis. Wednesday. He had a full course today. He was brought in by EMS. He did not receive any aspirin as he was vomiting. He did receive IV fluids and Zofran. ROS: See above HPI for pertinent positives & negatives. A total of 10 systems reviewed and were otherwise negative. PAST MEDICAL HISTORY:See Below PAST SURGICAL HISTORY:See Below FAMILY HISTORY:See Below SOCIAL HISTORY:See Below HOME MEDICATIONS:See Below ALLERGIES:See Below VITALS:See Below PHYSICAL EXAMINATION: GENERAL: Sitting up in bed, alert, ill-appearing, mild distress, EYE EXAM: normal conjunctiva. OROPHARYNX: Mucous membranes are dry with coffee-ground emesis and back NECK: supple, no nuchal rigidity, no adenopathy, non-tender LUNGS: Clear to auscultation. Normal chest wall mechanics HEART: no murmurs, S1 normal and S2 normal ABDOMEN: abdomen soft, non-tender, normo-active bowel sounds, no masses, no rebound or guarding. BACK: Back is symmetrical on inspection and there is no deformity, no midline tenderness, no CVA tenderness. SKIN: no rashes and no bruising UPPER EXTREMITIES: upper extremities are grossly normal. Fistula and left mid upper extremity. Positive thrill. Positive bruit. LOWER EXTREMITIES: No pitting edema. NEURO EXAM: Normal sensorium, cranial nerves II-XII grossly intact, normal speech, no gross weakness of arms, no gross weakness of legs. MEDICAL DECISION MAKING: Patient is an 80-year-old male who presents the ER for precordial chest pain which has been going on for over a week with exertion. Associated with shortness of breath. IV was established blood work was obtained. Upon pr esentation EKG with ST depressions in the 3 through V6. Systolic blood pressures came down to 100. CBC shows no significant leukocytosis and mild anemia 11. INR was unremarkable. BMP with mild hypokalemia at 3.4. LFTs bilirubin was unremarkable. Troponin was positive at 2.6. He received dialysis today. Lipase was normal. He did vomit once in the ER and did appear to be coffee grounds. There was gastric ulcer. It was positive. He was placed on Protonix drip and bolus. Repeat EKG was unchanged. He was given fentanyl has his blood pressure was in the high 90s low 100s. Consulted cardiology who took him to the [facility]. Triage Nursing notes reviewed. Prior medical records reviewed Vital Signs: reviewed and remarkable for hypotension Differential diagnosis: Differential diagnoses includes but is not limited to acute coronary syndrome, myocardial infarction, pericarditis, pulmonary embolus, aortic dissection, pneumonia, pneumothorax, musculoskeletal, shingles, esophageal. ER treatment provided: See below Diagnostics interpreted by me: ECG: First EKG Sinus rhythm rate of [address] depressions in the high lateral leads as well as V3 through V6 ST depression in lead II Significantly changed from EKG in [facility] performed yesterday EKG #2 Sinus bradycardia rate 86 First-degree AV block ST depressions in the high lateral leads ST depressions in V3 through V6 ST depressions in lead II Elevation in aVR No significant change from EKG #1 Cardiac Monitoring: An order was placed for continuous cardiac monitoring. The monitor shows a rate of 89 with sinus rhythm. Laboratory studies: As stated above and show below. Imaging studies: Portable AP upright 1 view of the chest shows no acute pathology Consultation(s): Discussed with Dr. Rico who evaluated the patient at bedside emergently and took him to the [facility]RSE: Procedures: none Critical Care: I have personally spent 32 minutes of critical care time in the direct managem ent of this patient. This includes bedside care, interpretation of diagnostic studies, and testing, discussion with consultants, patient, and family members, and other required patient management activities. This 32 minutes is in excess of all separately billable procedures. Past Med/Surg History Medical History Benign prostate hyperplasia COPD (chronic obstructive pulmonary disease) with chronic bronchitis Coronary artery disease Diabetes mellitus Disturbance in sleep behavior ESRD (end stage renal disease) Hypertension Hypothyroidism Obstructive sleep apnea PVD (peripheral vascular disease) Surgical History H/O right inguinal hernia repair Open right inguinal hernia repair with mesh. Dr. Luo 03/04/20 History of prostate surgery Family History Mother Diabetes Father Cancer Cardiac disorder Social History Smoking Status: Former smoker Tobacco Type: Cigarettes Cigarettes Per Day: one pack a day; Second Hand Exposure: No; Do You Dip or Chew Tobacco: No; Tobacco Cessation Education Requested by Patient: No Hx Alcohol Use: No Hx Substance Use: No Preferred Language: Czech Communication Ability: Effective Educational Interpreter Required: No Beliefs That Will Affect Care: None marital status: Current Living Situation: Spouse current occupational status: retired Other Information That Helps Us Care for You: No Feels Safe at Home: Yes Safety Concerns: Feels Safe At This Time Allergies Allergies Allergy/AdvReac Type Severity Reaction Status Date / Time No Known Allergies Allergy Verified 08/02/20 15:25 Home Meds Home Medications Medication Instructions Recorded Confirmed atorvastatin 80 mg tablet 40 mg PO HS tab 06/01/19 08/02/20 cholecalciferol (vitamin D3) 25 1,000 unit PO QAM cap 06/01/19 08/02/20 mcg (1,000 unit) capsule insulin human U-100 NPH-regulr 0 unit SUBCUT AMPM ml 06/01/19 08/02/20 70-30 mix 100 unit/mL subcutaneous susp levothyroxine 100 mcg tablet 100 mcg PO QAM tab 06/01/19 08/02/20 B complex-vitamin C-folic acid 1 tab PO DAILY 08/02/20 08/02/20 [Aarti-Alberto] allopurinol [Zyloprim] 100 mg PO BID 08/02/20 08/02/20 aspirin [Aspir-81] 81 mg PO DAILY 08/02/20 08/02/20 cilostazol 100 mg PO BID 08/02/20 08/02/20 furosemide [Lasix] 40 mg PO DAILY 08/02/20 08/02/20 linagliptin [Tradjenta] 5 mg PO DAILY 08/02/20 08/02/20 potassium chloride 20 meq PO BID 08/02/20 08/02/20 sulfamethoxazole-trimethoprim 1 tab PO BID 08/02/20 08/02/20 [Bactrim DS] Results & Data (ED) Vital Signs Vital Signs - 24 hr 08/02/20 13:24 08/02/20 13:27 08/02/20 13:29 Temperature Temperature Source Pulse Rate 93 H 105 H 92 H Pulse Rate from SpO2 Sensor Respiratory Rate 26 H 17 25 H Respiratory Effort / Characteristics Respiratory Depth Blood Pressure 102/56 L Blood Pressure Mean 73 Blood Pressure Position Pulse Oximetry Oxygen Delivery Method Room Air Oxygen Flow Rate Sepsis Recent Fever Within 48 Hours Sepsis New/Unexplained Change in Mental Status Sepsis Action Taken by Nursing 08/02/20 13:30 08/02/20 13:32 08/02/20 13:40 Temperature 36.5 C Temperature Source Oral Pulse Rate 92 H 96 H 90 Pulse Rate from SpO2 Sensor Respiratory Rate 18 19 20 Respiratory Effort / Characteristics SOB on Exertion Respiratory Depth Normal Blood Pressure 102/56 L Blood Pressure Mean 71 Blood Pressure Position Lying Pulse Oximetry 91 Oxygen Delivery Method Room Air Oxygen Flow Rate Sepsis Recent Fever Within 48 Hours No Sepsis New/Unexplained Change in Mental Status N/A Sepsis Action Taken by Nursing No Action Required 08/02/20 13:50 08/02/20 13:57 08/02/20 14:00 Temperature Temperature Source Pulse Rate 89 86 90 Pulse Rate from SpO2 Sensor 80 86 87 Respiratory Rate 20 3 L 17 Respiratory Effort / Characteristics Respiratory Depth Blood Pressure 96/51 L Blood Pressure Mean 61 Blood Pressure Position Pulse Oximetry 79 L 93 89 L Oxygen Delivery Method Oxygen Flow Rate Sepsis Recent Fever Within 48 Hours Sepsis New/Unexplained Change in Mental Status Sepsis Action Taken by Nursing 08/02/20 14:04 08/02/20 14:10 08/02/20 14:15 Temperature Temperature Source Pulse Rate 89 84 88 Pulse Rate from SpO2 Sensor 84 84 83 Respiratory Rate 22 16 13 Respiratory Effort / Characteristics Respiratory Depth Blood Pressure 97/50 L 97/48 L Blood Pressure Mean 71 62 Blood Pressure Position Pulse Oximetry 84 L 99 94 Oxygen Delivery Method Oxygen Flow Rate Sepsis Recent Fever Within 48 Hours Sepsis New/Unexplained Change in Mental Status Sepsis Action Taken by Nursing 08/02/20 14:18 08/02/20 14:30 08/02/20 14:45 Temperature Temperature Source Pulse Rate 86 85 86 Pulse Rate from SpO2 Sensor 83 Respiratory Rate 18 19 22 Respiratory Effort / Characteristics Respiratory Depth Blood Pressure 97/51 L 101/60 92/51 L Blood Pressure Mean 62 86 69 Blood Pressure Position Pulse Oximetry 91 Oxygen Delivery Method Oxygen Flow Rate Sepsis Recent Fever Within 48 Hours Sepsis New/Unexplained Change in Mental Status Sepsis Action Taken by Nursing 08/02/20 14:50 08/02/20 14:57 Temperature Temperature Source Pulse Rate 90 Pulse Rate from SpO2 Sensor 86 Respiratory Rate 18 Respiratory Effort / Characteristics Respiratory Depth Blood Pressure Blood Pressure Mean Blood Pressure Position Pulse Oximetry 93 Oxygen Delivery Method Nasal Cannula Oxygen Flow Rate 2 Sepsis Recent Fever Within 48 Hours Sepsis New/Unexplained Change in Mental Status Sepsis Action Taken by Nursing Laboratory Data Result diagrams: 08/02/20 13:45 08/02/20 13:45 Lab Results 08/02/20 08/02/20 08/02/20 Range/Units 13:45 13:45 13:45 WBC 8.56 (4.8-10.8) K/uL RBC 3.64 L (4.7-6.1) M/uL Hgb 11.3 L (14.0-18.0) g/dL Hct 34.3 L (42-52) % MCV 94.2 (80-100) fL MCH 31.0 (25-34) pg MCHC 32.9 (32-36) g/dL RDW Std Deviation 49.6 H (36.4-46.3) fL RDW Coeff of Manoj 14.5 (11.5-14.5) % Plt Count 200 (130-400) K/uL MPV 9.4 (7.4-10.4) fL Immature Gran % (Auto) 0.4 % Neut % (Auto) 85.1 % Lymph % (Auto) 8.8 % Will % (Auto) 4.6 % Eos % (Auto) 0.7 % Baso % (Auto) 0.4 % Neut # (Auto) 7.30 H (1.4-6.5) K/uL Lymph # (Auto) 0.75 L (1.2-3.4) K/uL Will # (Auto) 0.39 (0.11-0.59) K/uL Eos # (Auto) 0.06 (0-0.5) K/uL Baso # (Auto) 0.03 (0-0.2) K/uL Immature Gran # (Auto) 0.03 H (0.00-0.02) K/uL PT 11.0 (9.0-12.0) Seconds INR 1.0 (0.9-1.1) APTT 27.7 (21.0-31.0) Seconds PTT Ratio 1.0 POC pH (7.35-7.45) POC pCO2 (35-46) mmHg POC pO2 (80-95) mmHg POC HCO3 (19-24) aguilar/L POC Total CO2 (24-31) mmol/L POC Base Excess (-9-1.8) aguilar/L POC ABG O2 Sat (90-95) % Sodium 138 (136-145) mmol/L Potassium 3.4 L (3.5-5.1) mmol/L Chloride 97 L (98-107) mmol/L Carbon Dioxide 32 (21-32) mmol/L Anion Gap 9.0 (3-11) BUN 15 (7-18) mg/dl Creatinine 2.78 H (0.6-1.4) mg/dl Est Cr Clr Drug Dosing 19.2 ml/min Est GFR ( Amer) 23.5 Est GFR (Non-Af Amer) 20.3 BUN/Creatinine Ratio 5.3 L (10-20) Glucose 185 H (70-99) mg/dl Calcium 9.5 (8.5-10.1) mg/dl Total Bilirubin 0.7 (0.2-1) mg/dl AST 29 (15-37) U/L ALT 15 (12-78) U/L Alkaline Phosphatase 81 (45-117) U/L Troponin I 2.640 H* (0-0.045) ng/ml Total Protein 7.7 (6.4-8.2) gm/dl Albumin 3.3 L (3.4-5.0) gm/dl Globulin 4.4 H (2.5-4.0) gm/dl Albumin/Globulin Ratio 0.7 L (0.9-2) Lipase 99 (73-393) U/L Gastric Fluid pH Gastric Occult Blood (Negative) Blood Type Antibody Screen 08/02/20 08/02/20 08/02/20 Range/Units 13:45 14:12 16:15 WBC (4.8-10.8) K/uL RBC (4.7-6.1) M/uL Hgb (14.0-18.0) g/dL Hct (42-52) % MCV (80-100) fL MCH (25-34) pg MCHC (32-36) g/dL RDW Std Deviation (36.4-46.3) fL RDW Coeff of Manoj (11.5-14.5) % Plt Count (130-400) K/uL MPV (7.4-10.4) fL Immature Gran % (Auto) % Neut % (Auto) % Lymph % (Auto) % Will % (Auto) % Eos % (Auto) % Baso % (Auto) % Neut # (Auto) (1.4-6.5) K/uL Lymph # (Auto) (1.2-3.4) K/uL Will # (Auto) (0.11-0.59) K/uL Eos # (Auto) (0-0.5) K/uL Baso # (Auto) (0-0.2) K/uL Immature Gran # (Auto) (0.00-0.02) K/uL PT (9.0-12.0) Seconds INR (0.9-1.1) APTT (21.0-31.0) Seconds PTT Ratio POC pH 7.43 (7.35-7.45) POC pCO2 44 (35-46) mmHg POC pO2 80 (80-95) mmHg POC HCO3 29 H (19-24) aguilar/L POC Total CO2 30 (24-31) mmol/L POC Base Excess 5.0 H (-9-1.8) aguilar/L POC ABG O2 Sat 96.0 H (90-95) % Sodium (136-145) mmol/L Potassium (3.5-5.1) mmol/L Chloride (98-107) mmol/L Carbon Dioxide (21-32) mmol/L Anion Gap (3-11) BUN (7-18) mg/dl Creatinine (0.6-1.4) mg/dl Est Cr Clr Drug Dosing ml/min Est GFR ( Amer) Est GFR (Non-Af Amer) BUN/Creatinine Ratio (10-20) Glucose (70-99) mg/dl Calcium (8.5-10.1) mg/dl Total Bilirubin (0.2-1) mg/dl AST (15-37) U/L ALT (12-78) U/L Alkaline Phosphatase (45-117) U/L Troponin I (0-0.045) ng/ml Total Protein (6.4-8.2) gm/dl Albumin (3.4-5.0) gm/dl Globulin (2.5-4.0) gm/dl Albumin/Globulin Ratio (0.9-2) Lipase (73-393) U/L Gastric Fluid pH 4 Gastric Occult Blood Positive A (Negative) Blood Type O Positive Antibody Screen NEGATIVE Administered Medications Pantoprazole Sodium 40 mg/ (Dextrose) 100 mls @ 20 mls/hr IV Q5H PARISA Stop: 09/01/20 13:50 Last Admin: 08/02/20 14:29 Dose: 8 mg/hr, 20 mls/hr Documented by: [id number] Discontinued Medications Aspirin (Aspirin Chew 324 Mg) 243 mg PO NOW STA Stop: 08/02/20 13:33 Last Admin: 08/02/20 14:20 Dose: 324 mg Documented by: [id number] Fentanyl Citrate (Fentanyl Citrate 100 Mcg/2 Ml Vial) 25 mcg IV NOW ONE Stop: 08/02/20 13:33 Last Admin: 08/02/20 13:32 Dose: 25 mcg Documented by: [id number] Fentanyl Citrate (Fentanyl Citrate 100 Mcg/2 Ml Vial) Confirm Administered Dose 100 mcg .ROUTE .STK-MED ONE Stop: 08/02/20 14:50 Last Admin: 08/02/20 17:05 Dose: Not Given Documented by: [id number] Heparin Sodium (Porcine) (Heparin (Porcine) 1000 Unit/Ml 10 Ml ([facility] Clerk Use Only)) Confirm Administered Dose 10,000 units .ROUTE .STK-MED ONE Stop: 08/02/20 14:50 Last Admin: 08/02/20 17:05 Dose: 10,000 units Documented by: [id number] Heparin Sodium/Sodium Chloride (Heparin In Nss Infusion 1000 Unit/500 Ml (2 U/Ml) Bag) Confirm Administered Dose 3,000 units IV .STK-MED ONE Stop: 08/02/20 14:51 Last Admin: 08/02/20 17:08 Dose: 3,000 units Documented by: [id number] Pantoprazole Sodium (Protonix Bolus/Drip) 0 mls @ 1 mls/hr IV ONE STA Stop: 08/02/20 13:37 Last Admin: 08/02/20 14:27 Dose: Not Given Documented by: [id number] Pantoprazole Sodium 80 mg/ (Dextrose) 120 mls @ 400 mls/hr IV NOW ONE Stop: 08/02/20 13:53 Last Admin: 08/02/20 14:25 Dose: 400 mls/hr Documented by: [id number] Midazolam HCl (Midazolam Hcl 1 Mg/Ml 2ml Vial) Confirm Administered Dose 2 mg .ROUTE .STK-MED ONE Stop: 08/02/20 14:51 Last Admin: 08/02/20 17:09 Dose: Not Given Documented by: [id number] Nicardipine HCl (Nicardipine Hcl Inj 2.5 Mg/Ml 10 Ml Amp) Confirm Administered Dose 25 mg .ROUTE .STK-MED ONE Stop: 08/02/20 14:50 Last Admin: 08/02/20 17:05 Dose: 25 mg Documented by: [id number] Nitroglycerin/Dextrose (Nitroglycerin/D5w 100mcg/Ml 20ml Syr) Confirm Administered Dose 2,000 mcg .ROUTE .STK-MED ONE Stop: 08/02/20 14:51 Last Admin: 08/02/20 17:08 Dose: 2,000 mcg Documented by: [id number] Discharge Plan Visit Data Chief Complaint: Chest Pain Stated Complaint: chest pain ED Provider: Rogerio Silverman Discharge Problem: Acute non-ST elevation myocardial infarction (NSTEMI), Unstable angina, Acute upper GI bleeding Patient Disposition: Still a Patient Discharge Instructions Interventions: ED Discharge Assessment Last Done: 08/02/20 14:57
[2020-08-02] MEDS ORDERED: PANTOprazole 40 MG in DEXTROSE 5% 100 ML IV SCH (13:51)
[2020-08-02] MEDS ORDERED: fentaNYL citrate 100 MCG/2 ML VIAL IV STA (13:58)
[2020-08-02 14:04] LABS: Basophils # (auto) 0.03 K/uL (0-0.2); Basophils % (auto) 0.4 %; Eosinophils # (auto) 0.06 K/uL (0-0.5); Eosinophils % (auto) 0.7 %; Hematocrit (blood only) 34.3 % (42-52); Hemoglobin 11.3 g/dL (14.0-18.0); Immature Granulocytes # (auto) 0.03 K/uL (0.00-0.02); Immature Granulocytes % (auto) 0.4 %; Lymphocytes # (auto) 0.75 K/uL (1.2-3.4); Lymphocytes % (auto) 8.8 %; Mean Corpuscular Hgb Conc 32.9 g/dL (32-36); Mean Corpuscular Volume 94.2 fL (80-100); Mean Platelet Volume 9.4 fL (7.4-10.4); Monocytes # (auto) 0.39 K/uL (0.11-0.59); Monocytes % (auto) 4.6 %; Neutrophils % (auto) 85.1 %; Platelet Count 200 K/uL (130-400); RDW Coefficient of Variation 14.5 % (11.5-14.5); RDW Standard Deviation 49.6 fL (36.4-46.3); Red Blood Count 3.64 M/uL (4.7-6.1); White Blood Count 8.56 K/uL (4.8-10.8)
[2020-08-02 14:16] LABS: Partial Thromboplastin Time 27.7 Seconds (21.0-31.0)
[2020-08-02 14:17] LABS: Albumin Level 3.3 gm/dl (3.4-5.0); BUN Creatinine Ratio 5.3 (10-20); Calcium 9.5 mg/dl (8.5-10.1); Creatinine Clr Calc Pharmacy 19.2 ml/min; Est GFR (African American) 23.5; Est GFR (Non-African American) 20.3; Potassium 3.4 mmol/L (3.5-5.1)
--- NOTE | 2020-08-02 14:18 | Electrocardiogram Report ---
Test Reason : Blood Pressure : / mmHG Vent. Rate : 092 BPM Atrial Rate : 092 BPM P-R Int : 222 ms QRS Dur : 118 ms QT Int : 422 ms P-R-T Axes : 035 -47 123 degrees QTc Int : 521 ms Sinus rhythm with 1st degree A-V block Left atrial enlargement Left anterior fascicular block Marked ST abnormality, possible anterolateral subendocardial injury Abnormal ECG No previous ECGs available Confirmed by Donnell Bright ([id number]) on 08/02/2020 2:18:38 PM Referred By: REFERRED SELF Confirmed By:Donnell Bright
--- NOTE | 2020-08-02 14:23 | XRay Report ---
XR chest 1V portable HISTORY: Atypical Chest Pain COMPARISON: Chest 03/03/2020. FINDINGS: No pneumothorax. No pleural effusions. The heart is mildly enlarged. There is progressive i nterstitial and vascular thickening. Calcified right hilar lymph nodes are again noted. Calcified gra nuloma within the right lung base. IMPRESSION: Interval progression of the mild interstitial pulmonary edema and cardiomegaly. ACT 112: Negative or not required by law. Electronically signed by: Nam Gill M.D. 08/02/2020 2:22 PM
[2020-08-02 14:24] LABS: Albumin Globulin Ratio 0.7 (0.9-2); Bilirubin,Total 0.7 mg/dl (0.2-1); Gastric Occult Blood Positive (Negative); Globulin 4.4 gm/dl (2.5-4.0); Total Protein 7.7 gm/dl (6.4-8.2); Troponin I 2.64 ng/ml (0-0.045); pH Gastric Fluid 4
[2020-08-02] MEDS ORDERED: HEPARIN (PORCINE) 1000 UNIT/ML 10 ML (CATH LAB USE ONLY) ONE (14:49)
[2020-08-02] MEDS ORDERED: fentaNYL citrate 100 MCG/2 ML VIAL ONE (14:49)
[2020-08-02] MEDS ORDERED: NiCARDipine HCL INJ 2.5 MG/ML 10 ML AMP ONE (14:49)
[2020-08-02] MEDS ORDERED: MIDAZOLAM HCL 1 MG/ML 2ML VIAL ONE (14:50)
[2020-08-02] MEDS ORDERED: NITROGLYCERIN/D5W 100MCG/ML 20ML SYR ONE (14:50)
--- NOTE | 2020-08-02 16:16 | Cardiac Catheterization ---
Cardiac Cath Procedure Full Procedure Date August 02, 2020 Pre-Procedure Diagnosis Pre-Procedure Diagnosis: Non STEMI, Valvular Disease and CHF AUC Score AUC Score: 9 Post-Procedure Diagnosis Post-Procedure Diagnosis: Severe CAD Procedure(s) Performed Procedure(s) Performed: Coronary Angiography and Femoral Artery Angiography Skein Bleacher Thomas Rico DO [employer](s[employer] Estimated Blood Loss Estimated Blood Loss: 15cc Medication(s) Medication(s): Lidocaine 1% Summary of Findings Subtotal 99% ostial left circumflex 95% LAD with thrombus Moderate ostial RCA calcification with 50-60% stenosis Moderate to severe aortic stenosis Hemodynamics Rest Ao:: 124/50/76 Final Ao: 104/50/79 LV: N/A Recommendations Recommendations: CABG and Management Recommendatons (Interventional cardiology consulted for IABP placement) Specimens Specimens: None Radiation Exposure (mGy) 1316 Contrast (mls) 75 Fluids (cc crystalloids) Fluids (cc crystalloids): 20 Nss Drains Drains: n/A Anesthesia Local anesthesia with lidocaine. No conscious sedation. Procedural Complication(s) None Disposition ICU I attest to the content of the Intraoperative Record and any orders documented therein. Any exceptions are noted below. 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 Cardiac Status Clinical evaluation leading to the procedure CAD Presenation: Non STEMI Anginal Classification: CCS IV Heart Failure: NYHA Class: CCS IV Cardiogenic Shock within 24 Hours: Yes Cardiac Arrest within 24 Hours: No Imaging Studies Past 6 Months: No Stress Studies Past 6 Months: No STEMI OR Non-STEMI Symptom Onset Date: 08/02/20 Symptom Onset Time: 08:00 Thrombolytics: No Coronary Anatomy Dominant: Right Left Main (% Stenosis): Proximal (20%) LAD (% Stenosis): Ostial (95% with thrombus extending to the proximal segment), Proximal (patent stent with 20% ISR), Mid (Diffuse 20 to 30%) and Distal (Diffuse, 20 to 30%) D1 (% Stenosis): Ostial (40%) D2 (% Stenosis): Ostial (30%) Circumflex (% Stenosis): Ostial (99%) OM1 (% Stenosis): Mid (moderate diffuse 30-50% disease involving the mid to distal vessel.) RCA (% Stenosis): Ostial (Moderate ostial calcification with 50-60% stenosis. Difficult engagement with catheter damping. ), Proximal (Moderate calcification, diffuse 20 to 30%), Mid (moderate calcification, diffuse 20-30%) and Distal (20%) R PDA (% Stenosis): Mid (10%) R PL1 (% Stenosis): Normal Diagnostic Physicians Name: Thomas Rico DO Status: Emergency Closure Device Percutaneous Entry Location: Femoral Closure Device: None-Manual Hold (IABP placed) Recommendations: CABG and Management Recommendatons (Interventional cardiology consulted for IABP placement) Intraprocedure Events Significant Disection: No Perforation: No
[2020-08-02 16:32] LABS: iSTAT Arterial Blood Gas HCO3 29 meg/L (19-24); iSTAT Arterial Blood Gas pCO2 44 mmHg (35-46); iSTAT Arterial Blood Gas pH 7.43 (7.35-7.45); iSTAT Arterial Blood Gas pO2 80 mmHg (80-95); iSTAT Carbon Dioxide 30 mmol/L (24-31)
--- NOTE | 2020-08-02 16:43 | Cardiology Consultation ---
Date of Consultation August 02, 2020 Assessment & Plan (1) Non-ST elevation (NSTEMI) myocardial infarction: (2) Acute decompensated heart failure: (3) PVD (peripheral vascular disease): (4) ESRD (end stage renal disease): (5) Moderate aortic stenosis: Risk, versus benefit of cardiac catheterization discussed with patient at bedside. He is agreeable to proceed. I will not initiate IV heparin currently due to Gastroccult positive emesis. Patient remains borderline hypotensive with mild chest discomfort. I will avoid nitroglycerin due to history of aortic stenosis and hypotension currently. Further recommendations pending result of emergent cardiac catheterization. Addendum: Cardiac catheterization reveals severe, 99% ostial left circumflex and left anterior descending stenosis. There is thrombus present in the left anterior descending artery. 60% ostial RCA stenosis. Intra-aortic balloon pump placed under fluoroscopy. Recommend emergent transfer via air to tertiary care for consideration of coronary artery bypass grafting and valve replacement. Case discussed with cardiology at [facility]. Patient accepted for transfer. Results of heart cath discussed with patient, his son and [id number]. 50 min critical care time spent evaluating patient, reviewing data, medical records, and discussing plan of urgent care with ER physician. History of Present Illness Reason for Consultation: chest pain Requesting Physician: Dr. Silverman Attending Physician: Tony Rico DO, [facility] History of Present Illness 80-year-old patient presented to the ER with chest pain. Patient reports chest discomfort waxing and waning over the past 7 to 10 days. Discomfort had been occurring with exertion and relieved with rest until today. He attended dialysis this morning. Postdialysis he developed chest pain when walking to his car. The pain persisted for approximately 15 minutes. He then drove himself to the local [employer] for food. The pain subsided but then promptly recurred upon his return home. Pain waxing and waning between 2 and 7/10. He came to the emergency department for further evaluation and treatment. In the ER, patient treated with fentanyl with mild improvement. EKG with diffuse ST depression. No overt ST elevation. X-ray consistent with congestive heart failure despite dialysis treatment this a.m. Patient currently describing 1/10 chest discomfort. Oxygen saturation somewhat labile although difficult to assess. Blood pressure borderline hypotensive. Denies lightheadedness or dizziness. Reports history of stenting to the left anterior descending artery in 2008. Most recent resting 2D transthoracic echocardiogram performed at [facility] 04/12/2020 demonstrates preserved LV systolic function, normal wall motion, with moderate aortic stenosis. Episode of vomiting reported and ER. Gastroccult positive. Patient denies any recent melena, hematochezia, or coffee-ground emesis. Allergies Allergy/AdvReac Type Severity Reaction Status Date / Time No Known Allergies Allergy Verified 08/02/20 15:25 Home Medications Home Medications Medication Instructions Recorded Confirmed Type atorvastatin 80 mg tablet 40 mg PO HS tab 06/01/19 08/02/20 History cholecalciferol (vitamin D3) 25 1,000 unit PO QAM cap 06/01/19 08/02/20 History mcg (1,000 unit) capsule insulin human U-100 NPH-regulr 0 unit SUBCUT AMPM ml 06/01/19 08/02/20 History 70-30 mix 100 unit/mL subcutaneous susp levothyroxine 100 mcg tablet 100 mcg PO QAM tab 06/01/19 08/02/20 History B complex-vitamin C-folic acid 1 tab PO DAILY 08/02/20 08/02/20 History [Aarti-Alberto] allopurinol [Zyloprim] 100 mg PO BID 08/02/20 08/02/20 History aspirin [Aspir-81] 81 mg PO DAILY 08/02/20 08/02/20 History cilostazol 100 mg PO BID 08/02/20 08/02/20 History furosemide [Lasix] 40 mg PO DAILY 08/02/20 08/02/20 History linagliptin [Tradjenta] 5 mg PO DAILY 08/02/20 08/02/20 History potassium chloride 20 meq PO BID 08/02/20 08/02/20 History sulfamethoxazole-trimethoprim 1 tab PO BID 08/02/20 08/02/20 History [Bactrim DS] Patient History Medical History Benign prostate hyperplasia COPD (chronic obstructive pulmonary disease) with chronic bronchitis Coronary artery disease Diabetes mellitus Disturbance in sleep behavior ESRD (end stage renal disease) Hypertension Hypothyroidism Obstructive sleep apnea PVD (peripheral vascular disease) Surgical History H/O right inguinal hernia repair Open right inguinal hernia repair with mesh. Dr. 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 Beliefs That Will Affect Care: None marital status: Current Living Situation: Spouse current occupational status: retired Feels Safe at Home: Yes Assistive Devices: Denture - Upper and Denture - Lower Review of Systems Review of Systems: All systems reviewed & are unremarkable except as noted in HPI & below Physical Exam Constitutional: well developed and + ill appearing; no acute distress Respiratory: Auscultation: + rales (Base lung nobles bilaterally.); no rhonchi and no wheezes Cardiovascular: Rate/Rhythm: regular rate and regular rhythm Heart Sounds: normal S1, normal S2 (Diminished) and + murmur (3/6 mid to late peaking high- pitched systolic ejection murmur heard best at the right second intercostal space.) Palpation: normal PMI Vessels: + JVD, femoral pulses present and radial pulses present (Diminished right radial pulse) Extremities: no edema Gastrointestinal (Abdomen): Inspection/Auscultation: abdomen normal to inspection and normal bowel sounds; abdomen not distended Per cussion/Palpation: abdomen nontender, no guarding and abdomen not rigid Skin: no rashes, warm and dry Neurologic: no focal motor deficits Speech / Cognition: normal speech Psychiatric: Orientation: alert and oriented x 3 Results & Data ([facility]) Vital Signs (Past 12 Hours) Vital Signs Temp Pulse Resp BP Pulse Ox 08/02/20 14:45 86 22 92/51 L 08/02/20 14:30 85 19 101/60 08/02/20 14:18 86 18 97/51 L 91 08/02/20 14:15 88 13 94 08/02/20 14:10 84 16 97/48 L 99 08/02/20 14:04 89 22 97/50 L 84 L 08/02/20 14:00 90 17 89 L 08/02/20 13:57 86 3 L 96/51 L 93 08/02/20 13:50 89 20 79 L 08/02/20 13:40 90 20 08/02/20 13:32 36.5 C 96 H 19 102/56 L 91 08/02/20 13:30 92 H 18 08/02/20 13:29 92 H 25 H 08/02/20 13:27 105 H 17 102/56 L 08/02/20 13:24 93 H 26 H
--- NOTE | 2020-08-02 17:11 | Critical Care Consultation ---
Date of Consultation August 02, 2020 Assessment & Plan (1) Non-ST elevation (NSTEMI) myocardial infarction: Chest x-ray 08/02/2020: Portable film, good inspiratory effort, bilateral alveola r infiltrates appreciated bilateral costophrenic angles are clean. Increased vascular markings. EKG 08/02/2020: Sinus rhythm with first-degree AV block with left anterior fascicular block. ST depression appreciated in leads II aVF and lateral leads., No T wave inversions appreciated. --NSTEMI status post cardiac cath Multivessel disease, no stent was placed, 99% ostial left circumflex and left anterior descending stenosis. Patient has intra-aortic balloon pump placed today in the Survey Chief Patient is for transfer to tertiary center for possible CABG Intra-aortic balloon pump management as per cardiology Continue with O2 supplementation keep O2 saturation between 92 to 96% BiPAP nightly and PRN shortness of breath --End-stage renal disease On hemodialysis Wednesday Got dialysis today --Hypothyroidism Patient is on levothyroxine at home Resume tomorrow --Diabetes type 2 ICU hyperglycemia protocol --Peripheral vascular disease --Hypokalemia Being replaced Plan: No need for Howell catheter given that the patient is end-stage renal disease. Continue with blood pressure monitoring. Keep map greater than 65. Intra-aortic balloon for monitoring as per cardiology Continue with O2 supplementation. Morphine/nitro for chest pain Case was signed out to me by Dr. Law Patient is accepted at [facility], awaiting bed for transfer. I have personally spent 61 minutes of critical care time in the direct management of this patient. This is a life/limb threatening event. This includes time spent evaluating patient, direct bedside care, chart review, placing orders, interpretation of diagnostic studies, discussion with consultants, patient, and family members, as well as other required patient management activities. This time is exclusive of all separately billable procedures, and teaching time and separate from and in addition to any other critical care service time. Please note the above document was generated using voice recognition software. It may contain grammatical, syntax or spelling errors. (2) Acute decompensated heart failure: History of Present Illness Attending Physician: Thomas Rico DO History of Present Illness 80-year-old male with past medical history of end-stage renal disease on dialysis since 1 year got dialysis today, hypothyroidism, history of coronary artery disease with previous stent in the past, diabetes type 2, peripheral vascular disease came to the ED because of midsternal chest pain associated with mild shortness of breath and mild nausea. Patient had cardiac cath done following this which showed multivessel disease. And the recommendation was to send the patient to [place]. Intra-aortic balloon pump was placed in the Survey Chief. Patient was sent to the ICU for post cardiac cath and aortic balloon pump care as a transfer to transfer to [place] At the time of examination patient is awake alert oriented x3. Systolic blood pressure is in the 100s with diastolic in the 70s map of greater than 65. Intra-aortic balloon pump is synchronized 3 diastolic. Patient denies any chest pain, no nausea or vomiting. Denies any shortness of breath. No dizziness, no headache. Patient states that he does make little bit of urine. He got dialysis today. Social history: Patient is ex-smoker. Allergies Allergy/AdvReac Type Severity Reaction Status Date / Time No Known Allergies Allergy Verified 08/02/20 15:25 Home Medications Home Medications Medication Instructions Recorded Confirmed Type atorvastatin 80 mg tablet 40 mg PO HS tab 06/01/19 08/02/20 History cholecalciferol (vitamin D3) 25 1,000 unit PO QAM cap 06/01/19 08/02/20 History mcg (1,000 unit) capsule insulin human U-100 NPH-regulr 0 unit SUBCUT AMPM ml 06/01/19 08/02/20 History 70-30 mix 100 unit/mL subcutaneous susp levothyroxine 100 mcg tablet 100 mcg PO QAM tab 06/01/19 08/02/20 History B complex-vitamin C-folic acid 1 tab PO DAILY 08/02/20 08/02/20 History [Aarti-Alberto] allopurinol [Zyloprim] 100 mg PO BID 08/02/20 08/02/20 History aspirin [Aspir-81] 81 mg PO DAILY 08/02/20 08/02/20 History cilostazol 100 mg PO BID 08/02/20 08/02/20 History furosemide [Lasix] 40 mg PO DAILY 08/02/20 08/02/20 History linagliptin [Tradjenta] 5 mg PO DAILY 08/02/20 08/02/20 History potassium chloride 20 meq PO BID 08/02/20 08/02/20 History sulfamethoxazole-trimethoprim 1 tab PO BID 08/02/20 08/02/20 History [Bactrim DS] Patient History Medical History Benign prostate hyperplasia COPD (chronic obstructive pulmonary disease) with chronic bronchitis Coronary artery disease Diabetes mellitus Disturbance in sleep behavior ESRD (end stage renal disease) Hypertension Hypothyroidism Obstructive sleep apnea PVD (peripheral vascular disease) Surgical History H/O right inguinal hernia repair Open right inguinal hernia repair with mesh. Dr. 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 Beliefs That Will Affect Care: None marital status: Current Living Situation: Spouse current occupational status: retired Other Information That Helps Us Care for You: No Feels Safe at Home: Yes Safety Concerns: Feels Safe At This Time Review of Systems Review of Systems: All systems reviewed & are unremarkable except as noted in HPI & below Physical Exam Physical Exam: Constitutional: No acute distress HEENT: EOMI, PERRLA Respiratory system: Decreased air entry bilaterally, positive crackles bilateral lower lobes, no wheeze, no rhonchi CVS: S1-S2 positive, positive thoracic systolic ejection murmur appreciated, aortic balloon sound appreciated Abdomen: Soft, nontender, nondistended, positive bowel sounds x4 Extremities: Decreased pulses bilateral lower extremities, positive pulses bilaterally radialis, no cyanosis, no edema, amputated right first and second toe, amputated index finger on the right, left AV fistula Neuro: Awake alert oriented x3 Psych: Normal mood and affect G/U: No Howell Skin: no rashes, warm and dry Lymphatic: no cervical or axillary lymphadenopathy Results & Data Results & Data ([facility]) Vital Signs (Past 12 Hours) Vital Signs Temp Pulse Resp BP Pulse Ox 08/02/20 14:45 86 22 92/51 L 08/02/20 14:30 85 19 101/60 08/02/20 14:18 86 18 97/51 L 91 08/02/20 14:15 88 13 94 08/02/20 14:10 84 16 97/48 L 99 08/02/20 14:04 89 22 97/50 L 84 L 08/02/20 14:00 90 17 89 L 08/02/20 13:57 86 3 L 96/51 L 93 08/02/20 13:50 89 20 79 L 08/02/20 13:40 90 20 08/02/20 13:32 36.5 C 96 H 19 102/56 L 91 08/02/20 13:30 92 H 18 08/02/20 13:29 92 H 25 H 08/02/20 13:27 105 H 17 102/56 L 08/02/20 13:24 93 H 26 H 08/02/20 13:45 08/02/20 13:45 Coding Level of Care Code Critical Care 1st 30-74 mins Diagnoses Non-ST elevation (NSTEMI) myocardial infarction I21.4 Acute decompensated heart failure I50.9 Time Spent (min) 61
--- NOTE | 2020-08-02 17:19 | Electrocardiogram Report ---
Test Reason : Blood Pressure : / mmHG Vent. Rate : 086 BPM Atrial Rate : 086 BPM P-R Int : 236 ms QRS Dur : 124 ms QT Int : 426 ms P-R-T Axes : 040 -51 131 degrees QTc Int : 509 ms Sinus rhythm with 1st degree A-V block Left anterior fascicular block Marked ST abnormality, possible inferolateral subendocardial injury Abnormal ECG When compared with ECG of 02-AUG-2020 13:24, No significant change was found Confirmed by Donnell Bright ([id number]) on 08/02/2020 5:18:56 PM Referred By: REFERRED SELF Confirmed By:Donnell Bright
[2020-08-02] MEDS ORDERED: POTASSIUM CHLORIDE 20 MEQ TABCR PO STA (17:44)
--- NOTE | 2020-08-05 08:48 | Cardiac Catheterization ---
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 Cardiac Status Clinical evaluation leading to the procedure CAD Presenation: Non STEMI Anginal Classification: CCS IV Heart Failure: NYHA Class: CCS IV Cardiogenic Shock within 24 Hours: No Cardiac Arrest within 24 Hours: No Imaging Studies Past 6 Months: Yes Stress Studies Past 6 Months: No Diagnostic Physicians Name: Barry Mon MD Closure Device Percutaneous Entry Location: Femoral Recommendations: CABG Intraprocedure Events Significant Disection: No Perforation: No Cardiac Cath Procedure Full Procedure Date August 05, 2020 Pre-Procedure Diagnosis Pre-Procedure Diagnosis: Non STEMI, Valvular Disease and CHF AUC Score AUC Score: 8 Post-Procedure Diagnosis Post-Procedure Diagnosis: Severe CAD Procedure(s) Performed Procedure(s) Performed: IABP Toy Mechanic Barry Mon MD Flitch Hanger(s) Crispin ELDER Estimated Blood Loss Estimated Blood Loss: 15cc Summary of Findings For full details of patient's coronary angiography please see cath report dictated by Dr. Rico. Briefly, patient found to have severe multivessel disease with subtotal 99% ostial left circumflex lesion and 95% proximal LAD stenosis with apparent acute thrombus. Patient hemodynamically, electrically stable with minimal chest pain. Decision to place a balloon pump and transferred to [facility] for as well cardiac surgery versus high risk PCI potentially requiring hemodynamic support. Procedure: 5 Fr right common femoral artery sheath exchanged for 8 Fr sheath Maquet 50 cc of IABP placed under fluoroscopic guidance to descending thoracic aorta Started on one-to-one augmentation with augmented pressures to the 120s. Device sutured in place Summary: 1. Successful placement of IABP Hemodynamics Rest Ao:: -- Final Ao: -- LV: -- Recommendations Recommendations: CABG Specimens Specimens: None Radiation Exposure (mGy) -- Contrast (mls) none Anesthesia Local anesthesia with lidocaine. Procedural Complication(s) None Disposition ICU I attest to the content of the Intraoperative Record and any orders documented therein. Any exceptions are noted below. ChipXG Card Cath Procedure Codes Therapeutic Services & Ancillary Proc Procedure 1: Cardiovascular Tx and Anc Procedures: 20549 IABP Insertion PG Care Time/CCT Total # of Minutes Spent Total Time Spent with Patient: Total time spent is greater than 50% in coordination of care (as documented) at patient's floor/unit and/or counseling patient:
--- NOTE | 2020-08-05 15:15 | Coding Query ---
CONGESTIVE HEART FAILURE To Promote full compliance with coding requirements relating to patient care, physician participation is requested in all cases of art teacher uncertainty. Please assist us with the following questions. A diagnosis of ACUTE DECOMPENSATED HEART FAILURE is documented in the patient's medical record. To accurately code this diagnosis and to compare patient severity, we ask that you specify the type of heart failure by placing an X within the parenthesis (x). SYSTOLIC HEART FAILURE ( x) Acute ( ) Chronic ( ) Acute on Chronic ( ) Rheumatic ( ) Unknown DIASTOLIC HEART FAILURE ( x) Acute ( ) Chronic ( ) Acute on Chronic ( ) Rheumatic ( ) Unknown COMBINED SYSTOLIC AND DIASTOLIC HEART FAILURE (x ) Acute ( ) Chronic ( ) Acute on Chronic ( ) Rheumatic ( ) Unknown Was the CHF Present On Admission? Please check the appropriate box: (x ) Present on Admission ( ) Not Present On Admission ( ) Clinically undetermined Thank you Monika RAUSCH
--- NOTE | 2020-08-09 11:27 | Discharge Summary ---
Date of Service August 09, 2020 Principal Diagnosis NSTEMI Cardiogenic shock Aortic stenosis Discharge Exam Patient borderline hypotensive with low level, 1/10 chest discomfort post cardiac catheterization. +B/L rales at bases. 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 Station Worker Routine Procedures Performed Operation Date: 08/02/20 15:00 Actual Procedures p Cath, Left with Cors and Vent - Thomas Rico, DO s Cineradiography w/Routine Exam - Thomas Rico DO s Intra-Aortic Balloon Insertion - Camilo Mon MD Ordered Studies 08/02/20 14:51 CL Cath Imgs for PACS use only Stat Hospital Course (1) Non-ST elevation (NSTEMI) myocardial infarction: (2) Acute decompensated heart failure: (3) PVD (peripheral vascular disease): (4) ESRD (end stage renal disease): (5) Moderate aortic stenosis: Risk, versus benefit of cardiac catheterization discussed with patient at bedside. He is agreeable to proceed. I will not initiate IV heparin currently due to Gastroccult positive emesis. Patient remains borderline hypotensive with mild chest discomfort. I will avoid nitroglycerin due to history of aortic stenosis and hypotension currently. Further recommendations pending result of emergent cardiac catheterization. Addendum: Cardiac catheterization reveals severe, 99% ostial left circumflex and left anterior descending stenosis. There is thrombus present in the left anterior descending artery. 60% ostial RCA stenosis. Intra-aortic balloon pump placed under fluoroscopy. Recommend emergent transfer via air to tertiary care for consideration of coronary artery bypass grafting and valve replacement. Case discussed with cardiology at [facility]. Patient accepted for transfer. 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 Pending Studies at Discharge: Yes Studies:: 2D echo To be performed at [facility] Stand-Alone Forms: My [facility] Skilled Items Patient informed of condition?: Yes DNR: No Discharge Level of Care: Other Communicable Disease: No Discharge Prognosis: Deteriorating Lines: Peripheral IV Urinary Catheter: No Medications and DC Order Prescriptions: Continued cholecalciferol (vitamin D3) 1,000 unit capsule 1,000 unit PO QAM RF: 0 levothyroxine 100 mcg tablet 100 mcg PO QAM RF: 0 insulin NPH and regular human 100 unit/mL (70-30) suspension 0 unit subcut AMPM RF: 0 atorvastatin 80 mg tablet 40 mg PO HS RF: 0 furosemide [Lasix] 40 mg tablet 40 mg PO DAILY RF: 0 cilostazol 100 mg tablet 100 mg PO BID RF: 0 potassium chloride 10 mEq capsule, extended release 20 meq PO BID RF: 0 allopurinol [Zyloprim] 100 mg tablet 100 mg PO BID RF: 0 sulfamethoxazole-trimethoprim [Bactrim DS] 800-160 mg tablet 1 tab PO BID RF: 0 aspirin [Aspir-81] 81 mg Tablet,Delayed Release (Dr/Ec) 81 mg PO DAILY RF: 0 Aarti-Alberto 0.8 mg tablet 1 tab PO DAILY RF: 0 Tradjenta 5 mg tablet 5 mg PO DAILY RF: 0 Admission Data Admit Date/Time: 08/02/20 16:17 Attending Provider: Thomas Rico Admit Provider: Thomas Rico Primary Care Provider: Yvon Swan Other Providers: Delphine Blair ; Camilo Mon Other Interventions: Discharge Summary Assessment (RN) Last Done: 08/02/20 19:14
== END 2020-08-02 18:10 | disposition short-term general hospital (02) | DRG 270 ==
LOC: ED 13:18 → SURCTR 14:57 → 1E 16:17

== ENCOUNTER 2021-02-19 19:51 | Inpatient (IN) ==
[2021-02-19] MEDS ORDERED: SODIUM CHLORIDE 0.9% 1000ML 1,000 ML IV SCH (20:45)
--- NOTE | 2021-02-19 21:05 | Emergency Department Note ---
Impression & Plan SOB (shortness of breath), End-stage renal disease (ESRD), Near syncope, Dizziness ED Provider Note NAME: SPENCER PRASAD AGE: 80 SEX: M : 1940 ARRIVES VIA: Ambulance INFORMANT: Patient, ED PROVIDER(S): Reynaldo Rogers MD Chief Complaint: Dizziness, near syncope HPI: Patient did present to the emergency department due to concern for weakness and near syncope. The patient had some nausea after his dialysis. Patient had gone to wound care for some debridement of a wound on his left foot. The patient felt more ill around 5 PM. Patient denies any fevers or chills. The patient states that he had tried to eat a steak hoagie but that he did not feel well. The patient does wear oxygen at all times. Patient does have some fatigability and dyspnea on exertion. Patient denies any cough or chest pain. He did have some associated dizziness which was occasionally positional. ROS: See HPI for pertinent positives and negatives. A total of 10 systems were reviewed and otherwise negative. Past medical history: See below Surgical history: See below Social history: See below Physical Exam: GENERAL: Fatigued in appearance, nasal cannula in place. EYE EXAM: Normal conjunctiva. PERRL, no anisocoria and EOM's grossly intact w/o pain. NECK: Supple, no nuchal rigidity, no adenopathy, non-tender. No signs of meningismus. LUNGS: Coarse breath sounds bilateral bases. Normal chest wall mechanics. HEART: NSR, no MRG. ABDOMEN: Abdomen soft, non-tender, normo-active bowel sounds, no masses, no rebound or guarding. BACK: No CVA TTP. SKIN: No rashes and no bruising. UPPER EXTREMITIES: Upper extremities are grossly normal. LOWER EXTREMITIES: Grossly normal, trace pretibial edema. NEURO EXAM: A&O x3, cranial nerves II-XII grossly intact with exception of left facial palsy, normal speech, moves all 4 extremities on command w/o issue. Differential diagnoses: Infection, dehydration, metabolic abnormality, hypo/hyperglycemia, electrolyte disturbance, anemia, hypoxia, cardiac sources, intracerebral event, toxicologic, neurologic, as well as other pathologies. Course: Patient was seen and evaluated the bedside. Full history physical exam was performed. EKG: Sinus rhythm with first-degree AV block, rate of 80, prolonged NE, normal QRS, left axis deviation. QT prolonged. Imaging Studies: See below Cardiac monitoring: An order was placed for continuous cardiac monitoring. The monitor shows a rate of 80 with sinus rhythm. MDM: Chest x-ray did show cardiomegaly with evidence of congestive failure. Patient given his near syncope and dialysis is chronically elevated troponin believe the patient would benefit from telemetry and trending of his enzymes. I did speak with the on-call hospitalist Dr. Hines and the patient was admitted to the medicine service. 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 Past Med/Surg History Medical History (Updated 02/20/21 @ 23:46 by Reynaldo Rogers MD) Benign prostate hyperplasia COPD (chronic obstructive pulmonary disease) with chronic bronchitis Coronary artery disease Diabetes mellitus Disturbance in sleep behavior ESRD (end stage renal disease) Hypertension Hypothyroidism Obstructive sleep apnea PVD (peripheral vascular disease) Surgical History H/O right inguinal hernia repair Open right inguinal hernia repair with mesh. Dr. Luo 03/04/20 History of prostate surgery Family History Mother Diabetes Father Cancer Cardiac disorder Social History Smoking Status: Never smoker Tobacco Type: Cigarettes Cigarettes Per Day: one pack a day; Second Hand Exposure: No; Hx Alcohol Use: No Hx Substance Use: No Preferred Language: Syriac Communication Ability: Effective Visual Impairment: No Limitations Gaming Host Required: No Beliefs That Will Affect Care: None marital status: Current Living Situation: Spouse current occupational status: retired Other Information That Helps Us Care for You: No Feels Safe at Home: Yes Safety Concerns: Feels Safe At This Time Assistive Devices: Oxygen - Continuous Allergies Allergies Allergy/AdvReac Type Severity Reaction Status Date / Time No Known Allergies Allergy Verified 02/19/21 20:35 Home Meds Home Medications Medication Instructions Recorded Confirmed atorvastatin 80 mg tablet 40 mg PO HS tab 06/01/19 02/19/21 cholecalciferol (vitamin D3) 25 1,000 unit PO QAM cap 06/01/19 02/19/21 mcg (1,000 unit) capsule levothyroxine 100 mcg tablet 100 mcg PO QAM tab 06/01/19 02/19/21 Tradjenta 5 mg PO DAILY 08/02/20 02/19/21 allopurinol [Zyloprim] 200 mg PO DAILY 08/02/20 02/19/21 furosemide [Lasix] 40 mg PO QAM 08/02/20 02/19/21 Humulin 70/30 U-100 KwikPen 8 unit SUBCUT BID 11/04/20 02/19/21 Aarti-Alberto 1 tab PO QAM 11/04/20 02/19/21 aspirin 81 mg PO QAM 11/04/20 02/19/21 clopidogrel [Plavix] 75 mg PO QAM 11/04/20 02/19/21 docusate sodium 100 mg PO UD PRN 11/04/20 02/19/21 metoprolol succinate 12.5 mg PO QPM 11/04/20 02/19/21 sevelamer carbonate [Renvela] 1,600 mg PO TIDM 11/04/20 02/19/21 sildenafil (pulm.hypertension) 20 mg PO DAILY 02/19/21 02/19/21 spironolacton-hydrochlorothiaz 0.5 tab PO DAILY 02/19/21 02/19/21 Results & Data (ED) Vital Signs Vital Signs - 24 hr 02/19/21 20:13 Temperature 37.0 C Temperature Source Oral Respiratory Rate 18 Respiratory Effort / Characteristics Non-Labored Spontaneous Respiratory Depth Normal Respiratory Pattern Regular Blood Pressure 101/53 L Blood Pressure Mean 69 Blood Pressure Position Lying Pulse Oximetry 95 Oxygen Delivery Method Nasal Cannula Oxygen Flow Rate 2 Sepsis Recent Fever Within 48 Hours No Sepsis New/Unexplained Change in Mental Status No Sepsis Action Taken by Nursing No Action Required Home Medications Current Medication List: was personally reviewed by me Laboratory Data Attestation: I reviewed the patient's lab results. Result diagrams: 02/20/21 05:45 02/20/21 05:45 Lab Results 02/19/21 02/19/21 02/19/21 Range/Units 20:23 21:20 21:20 WBC (4.8-10.8) K/uL RBC (4.7-6.1) M/uL Hgb (14.0-18.0) g/dL Hct (42-52) % MCV (80-100) fL MCH (25-34) pg MCHC (32-36) g/dL RDW Std Deviation (36.4-46.3) fL RDW Coeff of Manoj (11.5-14.5) % Plt Count (130-400) K/uL MPV (7.4-10.4) fL Immature Gran % (Auto) % Neut % (Auto) % Lymph % (Auto) % Estill % (Auto) % Eos % (Auto) % Baso % (Auto) % Neut # (Auto) (1.4-6.5) K/uL Lymph # (Auto) (1.2-3.4) K/uL Estill # (Auto) (0.11-0.59) K/uL Eos # (Auto) (0-0.5) K/uL Baso # (Auto) (0-0.2) K/uL Immature Gran # (Auto) (0.00-0.02) K/uL PT 10.6 (9.0-12.0) Seconds INR 1.0 (0.9-1.1) APTT (21.0-31.0) Seconds PTT Ratio Sodium 138 (136-145) mmol/L Potassium 3.6 (3.5-5.1) mmol/L Chloride 98 (98-107) mmol/L Carbon Dioxide 34 H (21-32) mmol/L Anion Gap 6.0 (3-11) BUN 21 H (7-18) mg/dl Creatinine 3.35 H (0.6-1.4) mg/dl Est Cr Clr Drug Dosing 15.1 ml/min Est GFR ( Amer) 18.8 Est GFR (Non-Af Amer) 16.2 BUN/Creatinine Ratio 6.1 L (10-20) Glucose 203 H (70-99) mg/dl POC Glucose 231 H (70-99) mg/dl Calcium 9.4 (8.5-10.1) mg/dl Magnesium 2.1 (1.8-2.4) mg/dl Total Bilirubin 0.6 (0.2-1) mg/dl AST 23 (15-37) U/L ALT 14 (12-78) U/L Alkaline Phosphatase 80 (45-117) U/L Troponin I 0.804 H* (0-0.045) ng/ml Total Protein 7.1 (6.4-8.2) gm/dl Albumin 2.9 L (3.4-5.0) gm/dl Globulin 4.2 H (2.5-4.0) gm/dl Albumin/Globulin Ratio 0.7 L (0.9-2) TSH 4.280 (0.300-4.500) uIu/ml COVID-19 Eval Order SARS-CoV-2 (PCR) (Negative) Influenza Type A (PCR) (Neg) Influenza Type B (PCR) (Neg) RSV (RT-PCR) (Neg) 02/19/21 02/19/21 02/19/21 Range/Units 21:20 21:20 Unknown WBC 10.44 (4.8-10.8) K/uL RBC 3.21 L (4.7-6.1) M/uL Hgb 10.3 L (14.0-18.0) g/dL Hct 30.9 L (42-52) % MCV 96.3 (80-100) fL MCH 32.1 (25-34) pg MCHC 33.3 (32-36) g/dL RDW Std Deviation 50.2 H (36.4-46.3) fL RDW Coeff of Manoj 14.2 (11.5-14.5) % Plt Count 180 (130-400) K/uL MPV 9.5 (7.4-10.4) fL Immature Gran % (Auto) 0.2 % Neut % (Auto) 87.8 % Lymph % (Auto) 5.0 % Estill % (Auto) 5.8 % Eos % (Auto) 0.9 % Baso % (Auto) 0.3 % Neut # (Auto) 9.17 H (1.4-6.5) K/uL Lymph # (Auto) 0.52 L (1.2-3.4) K/uL Estill # (Auto) 0.61 H (0.11-0.59) K/uL Eos # (Auto) 0.09 (0-0.5) K/uL Baso # (Auto) 0.03 (0-0.2) K/uL Immature Gran # (Auto) 0.02 (0.00-0.02) K/uL PT (9.0-12.0) Seconds INR (0.9-1.1) APTT 22.4 (21.0-31.0) Seconds PTT Ratio 0.9 Sodium (136-145) mmol/L Potassium (3.5-5.1) mmol/L Chloride (98-107) mmol/L Carbon Dioxide (21-32) mmol/L Anion Gap (3-11) BUN (7-18) mg/dl Creatinine (0.6-1.4) mg/dl Est Cr Clr Drug Dosing ml/min Est GFR ( Amer) Est GFR (Non-Af Amer) BUN/Creatinine Ratio (10-20) Glucose (70-99) mg/dl POC Glucose (70-99) mg/dl Calcium (8.5-10.1) mg/dl Magnesium (1.8-2.4) mg/dl Total Bilirubin (0.2-1) mg/dl AST (15-37) U/L ALT (12-78) U/L Alkaline Phosphatase (45-117) U/L Troponin I (0-0.045) ng/ml Total Protein (6.4-8.2) gm/dl Albumin (3.4-5.0) gm/dl Globulin (2.5-4.0) gm/dl Albumin/Globulin Ratio (0.9-2) TSH (0.300-4.500) uIu/ml COVID-19 Eval Order CovFluRsv at [facility] SARS-CoV-2 (PCR) (Negative) Influenza Type A (PCR) (Neg) Influenza Type B (PCR) (Neg) RSV (RT-PCR) (Neg) 02/19/21 Range/Units Unknown WBC (4.8-10.8) K/uL RBC (4.7-6.1) M/uL Hgb (14.0-18.0) g/dL Hct (42-52) % MCV (80-100) fL MCH (25-34) pg MCHC (32-36) g/dL RDW Std Deviation (36.4-46.3) fL RDW Coeff of Manoj (11.5-14.5) % Plt Count (130-400) K/uL MPV (7.4-10.4) fL Immature Gran % (Auto) % Neut % (Auto) % Lymph % (Auto) % Estill % (Auto) % Eos % (Auto) % Baso % (Auto) % Neut # (Auto) (1.4-6.5) K/uL Lymph # (Auto) (1.2-3.4) K/uL Estill # (Auto) (0.11-0.59) K/uL Eos # (Auto) (0-0.5) K/uL Baso # (Auto) (0-0.2) K/uL Immature Gran # (Auto) (0.00-0.02) K/uL PT (9.0-12.0) Seconds INR (0.9-1.1) APTT (21.0-31.0) Seconds PTT Ratio Sodium (136-145) mmol/L Potassium (3.5-5.1) mmol/L Chloride (98-107) mmol/L Carbon Dioxide (21-32) mmol/L Anion Gap (3-11) BUN (7-18) mg/dl Creatinine (0.6-1.4) mg/dl Est Cr Clr Drug Dosing ml/min Est GFR ( Amer) Est GFR (Non-Af Amer) BUN/Creatinine Ratio (10-20) Glucose (70-99) mg/dl POC Glucose (70-99) mg/dl Calcium (8.5-10.1) mg/dl Magnesium (1.8-2.4) mg/dl Total Bilirubin (0.2-1) mg/dl AST (15-37) U/L ALT (12-78) U/L Alkaline Phosphatase (45-117) U/L Troponin I (0-0.045) ng/ml Total Protein (6.4-8.2) gm/dl Albumin (3.4-5.0) gm/dl Globulin (2.5-4.0) gm/dl Albumin/Globulin Ratio (0.9-2) TSH (0.300-4.500) uIu/ml COVID-19 Eval Order SARS-CoV-2 (PCR) NEGATIVE (Negative) Influenza Type A (PCR) Negative (Neg) Influenza Type B (PCR) Negative (Neg) RSV (RT-PCR) Negative (Neg) Administered Medications Allopurinol (Allopurinol 100 Mg Tab) 200 mg PO DAILY PARISA Stop: 03/22/21 08:59 Last Admin: 02/20/21 08:02 Dose: 200 mg Documented by: [id number] Atorvastatin Calcium (Atorvastatin 40 Mg Tab) 40 mg PO HS [facility] Stop: 03/22/21 20:59 Last Admin: 02/20/21 21:07 Dose: 40 mg Documented by: [id number] Clopidogrel Bisulfate (Clopidogrel Bisulfate 75 Mg Tab) 75 mg PO QAM [facility] Stop: 03/22/21 08:59 Last Admin: 02/20/21 08:00 Dose: 75 mg Documented by: [id number] HCTZ/Spironolactone (Spironolactone/Hctz 25-25) 0.5 tab PO DAILY PARISA Stop: 03/22/21 08:59 Last Admin: 02/20/21 08:00 Dose: 0.5 tab Documented by: [id number] Heparin Sodium/Dextrose (Heparin Sodium/Dextrose) 25,000 units in 500 mls @ 19 mls/hr IV .Q24H PARISA; Protocol Stop: 03/22/21 02:44 Last Titration: 02/20/21 18:52 Dose: 950 units/hr, 19 mls/hr Documented by: [id number] Cosigned by: [id number] Titration: 02/20/21 10:44 Dose: 950 units/hr, 19 mls/hr Documented by: [id number] Cosigned by: [id number] Admin: 02/20/21 03:42 Dose: 800 units/hr, 16 mls/hr Documented by: [id number] Cosigned by: [id number] Insulin Aspart (Insulin Aspart 100 Units/Ml 3 Ml Pen) 0 units SC ACHS [facility] Stop: 03/22/21 16:29 Last Admin: 02/20/21 21:40 Dose: Not Given Documented by: [id number] Admin: 02/20/21 17:01 Dose: 2 units Documented by: [id number] Cosigned by: [id number] Levothyroxine Sodium (Levothyroxine Sodium 100 Mcg Tablet) 100 mcg PO DAILYBB [facility] Stop: 03/22/21 06:29 Last Admin: 02/20/21 05:42 Dose: 100 mcg Documented by: [id number] Metoprolol Succinate (Metoprolol Succ 25mg Ext Rel Tab) 12.5 mg PO QPM [facility] Stop: 03/22/21 20:59 Last Admin: 02/20/21 21:08 Dose: 12.5 mg Documented by: [id number] Sevelamer HCl (Sevelamer Hcl 800 Mg Tablet) 1,600 mg PO TIDM [facility] Stop: 03/22/21 07:59 Last Admin: 02/20/21 16:58 Dose: 1,600 mg Documented by: [id number] Admin: 02/20/21 11:39 Dose: Not Given Documented by: [id number] Admin: 02/20/21 11:38 Dose: Not Given Documented by: [id number] Vitamin D (Cholecalciferol 1,000 Units 25 Mcg Tab) 1,000 units PO QAM [facility]ISA Stop: 03/22/21 08:59 Last Admin: 02/20/21 08:02 Dose: 1,000 units Documented by: [id number] Discontinued Medications Albuterol (Albut/Ipratrop 3mg/0.5mg Neb 3 Ml Vial) 3 ml NEB NOW STA Stop: 02/19/21 23:01 Last Admin: 02/19/21 23:10 Dose: 3 ml Documented by: [id number] Aspirin (Aspirin 81 Mg Ectab) 81 mg PO NOW STA Stop: 02/20/21 02:42 Last Admin: 02/20/21 05:42 Dose: 81 mg Documented by: [id number] Furosemide (Furosemide 40 Mg/4 Ml Vial) 100 mg IV NOW STA Stop: 02/19/21 23:01 Last Admin: 02/20/21 00:05 Dose: 100 mg Documented by: [id number] Sodium Chloride (Nss 1000ml) 1,000 mls @ 999 mls/hr IV .Q1H1M [facility]ISA Stop: 02/19/21 21:45 Last Infusion: 02/19/21 22:08 Dose: 0 mls/hr Documented by: [id number] Admin: 02/19/21 21:07 Dose: 999 mls/hr Documented by: [id number] Heparin Sodium (Porcine) 3,000 (units/ Syringe) 3 mls @ 10 mls/min IV ONE ONE Stop: 02/20/21 11:01 Last Admin: 02/20/21 11:23 Dose: 10 mls/min Documented by: [id number] Cosigned by: [id number] Insulin Aspart (Insulin Aspart 100 Units/Ml 3 Ml Pen) 0 units SC Q6 [facility]ISA Stop: 03/22/21 03:05 Last Admin: 02/20/21 11:36 Dose: Not Given Documented by: [id number] Admin: 02/20/21 05:46 Dose: Not Given Documented by: [id number] Admin: 02/20/21 04:04 Dose: Not Given Documented by: [id number] Ioversol (Optiray 320 125ml) 120 ml IV ONCE ONE Stop: 02/20/21 12:10 Last Admin: 02/20/21 12:10 Dose: 120 ml Documented by: [id number] Discharge Plan Visit Data Chief Complaint: Weakness Stated Complaint: SYNCOPE, SOB ED Provider: Reynaldo Rogers Discharge Problem: SOB (shortness of breath), End-stage renal disease (ESRD), Near syncope, Dizziness Patient Disposition: Admitted As Inpatient Discharge Instructions Interventions: ED Discharge Assessment Last Done: 02/20/21 02:19
--- NOTE | 2021-02-19 21:19 | XRay Report ---
SINGLE VIEW CHEST CLINICAL HISTORY: Generalized weakness. FINDINGS: An AP, portable, upright chest radiograph is compared to study dated 11/04/2020. The heart is enlarged noting atherosclerotic calcification of the thoracic aorta. There is evidence of previous cardiac valve surgery. There is pulmonary vascular congestion. Bilateral airspace opacities are seen throughout both lungs. There are calcified hilar nodes as well as calcified granulomas. No large ple ural effusion or pneumothorax is seen. The skeletal structures are osteopenic. The bony thorax is yusuf ssly intact. IMPRESSION: 1. Cardiomegaly with evidence of congestive failure. 2. Diffuse bilateral interstitial airspace opacities could represent pulmonary edema and/or an infect ious/inflammatory pneumonitis. Clinical correlation will be required. ACT 112: Negative or not required by law. Electronically signed by: Jeovanny Kennedy M.D. 02/19/2021 9:18 PM
[2021-02-19 21:37] LABS: Basophils # (auto) 0.03 K/uL (0-0.2); Basophils % (auto) 0.3 %; Eosinophils # (auto) 0.09 K/uL (0-0.5); Eosinophils % (auto) 0.9 %; Hematocrit (blood only) 30.9 % (42-52); Hemoglobin 10.3 g/dL (14.0-18.0); Immature Granulocytes # (auto) 0.02 K/uL (0.00-0.02); Immature Granulocytes % (auto) 0.2 %; Lymphocytes # (auto) 0.52 K/uL (1.2-3.4); Mean Corpuscular Hemoglobin 32.1 pg (25-34); Mean Corpuscular Hgb Conc 33.3 g/dL (32-36); Mean Corpuscular Volume 96.3 fL (80-100); Mean Platelet Volume 9.5 fL (7.4-10.4); Monocytes # (auto) 0.61 K/uL (0.11-0.59); Monocytes % (auto) 5.8 %; Neutrophils # (auto) 9.17 K/uL (1.4-6.5); Neutrophils % (auto) 87.8 %; Platelet Count 180 K/uL (130-400); RDW Coefficient of Variation 14.2 % (11.5-14.5); RDW Standard Deviation 50.2 fL (36.4-46.3); Red Blood Count 3.21 M/uL (4.7-6.1); White Blood Count 10.44 K/uL (4.8-10.8)
[2021-02-19 21:45] LABS: Prothrombin Time 10.6 Seconds (9.0-12.0)
[2021-02-19 21:53] LABS: Albumin Level 2.9 gm/dl (3.4-5.0); BUN Creatinine Ratio 6.1 (10-20); Calcium 9.4 mg/dl (8.5-10.1); Creatinine Clr Calc Pharmacy 15.1 ml/min; Est GFR (African American) 18.8; Est GFR (Non-African American) 16.2; Magnesium 2.1 mg/dl (1.8-2.4); Potassium 3.6 mmol/L (3.5-5.1)
[2021-02-19 22:12] LABS: Albumin Globulin Ratio 0.7 (0.9-2); Bilirubin,Total 0.6 mg/dl (0.2-1); Globulin 4.2 gm/dl (2.5-4.0); Thyroid Stimulating Hormone 4.28 uIu/ml (0.300-4.500); Total Protein 7.1 gm/dl (6.4-8.2); Troponin I 0.804 ng/ml (0-0.045)
[2021-02-19] MEDS ORDERED: FUROSEMIDE 40 MG/4 ML VIAL IV STA (23:00)
[2021-02-19] MEDS ORDERED: ALBUT/IPRATROP 3MG/0.5MG NEB 3 ML VIAL NEB STA (23:00)
--- NOTE | 2021-02-19 23:01 | History & Physical Report ---
Date of Service February 19, 2021 Assessment & Plan (1) SOB (shortness of breath): Secondary to home O2 equipment issue hx chronic respiratory failure secondary to COPD/pulmonary fibrosis as per records/pulmonary HTN on home O2 Baseline congestion on CXR, hx diastolic heart failure, ESRD on HD Troponin elevation in the setting of pulmonary congestion, kidney dysfunction hx CAD status post stent, PVD status post percutaneous femoral AVR ESRD on HD DM2 insulin requiring, well-controlled as of recent hemoglobin A1c of 6.17 February 2021 chronic anemia, hemoglobin at baseline chronic thrombocytopenia past tobacco abuse OBS PCU Lasix dosed for renal function, nebs stat Follow troponin; TTE, cardiology consult if with progression Nephrology consult for dialysis management if patient still admitted by Wednesday Basal insulin, ISS BG goal [id number], carb count coverage DVT prophylaxis. SCDs Re: Thrombocytopenia Full code Patient son requesting updates for providers. Mr. Kevin Joseph, contact numbers [phone]. Text document was generated using [employer] voice recognition software. It may contain grammatical or spelling errors. Kindly contact undersigned for clarification of any documentation item in question. History of Present Illness Chief Complaint: Shortness of breath, dizziness Primary Care Provider: Yvon Swan MD History obtained from patient, family, and records. Patient is a reliable historian. Medical history significant for chronic respiratory failure secondary to COPD/pulmonary fibrosis as per records/pulmonary HTN on home O2, chronic diastolic HF (EF 55 to 59%, TTE 2019), CAD status post stent, PVD, status post percutaneous femoral AVR, ESRD on HD, DM2 insulin requiring, chronic anemia (baseline hemoglobin 10-11), chronic thrombocytopenia, Ng's palsy as per patient, past tobacco abuse. Last confinement October 2020 for decompensated heart failure. Patient noted shortness of breath today which he attributed to new oxygen tank issue. No unusual cough symptoms, no chest pain. Some dizziness. No syncope. Patient complaining of left hernia pain a little more than usual without fever, chills. Compliant with [facility] hemodialysis schedule. Patient brought to the ER for evaluation. Patient currently comfortable. 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, lives with Allergies Allergy/AdvReac Type Severity Reaction Status Date / Time No Known Allergies Allergy Verified 02/19/21 20:35 Home Medications Medication Instructions Recorded Confirmed Type atorvastatin 80 mg tablet 40 mg PO HS tab 06/01/19 02/19/21 History cholecalciferol (vitamin D3) 25 1,000 unit PO QAM cap 06/01/19 02/19/21 History mcg (1,000 unit) capsule levothyroxine 100 mcg tablet 100 mcg PO QAM tab 06/01/19 02/19/21 History Tradjenta 5 mg PO DAILY 08/02/20 02/19/21 History allopurinol [Zyloprim] 200 mg PO DAILY 08/02/20 02/19/21 History furosemide [Lasix] 40 mg PO QAM 08/02/20 02/19/21 History Humulin 70/30 U-100 KwikPen 8 unit SUBCUT BID 11/04/20 02/19/21 History Aarti-Alberto 1 tab PO QAM 11/04/20 02/19/21 History aspirin 81 mg PO QAM 11/04/20 02/19/21 History clopidogrel [Plavix] 75 mg PO QAM 11/04/20 02/19/21 History docusate sodium 100 mg PO UD PRN 11/04/20 02/19/21 History metoprolol succinate 12.5 mg PO QPM 11/04/20 02/19/21 History sevelamer carbonate [Renvela] 1,600 mg PO TIDM 11/04/20 02/19/21 History sildenafil (pulm.hypertension) 20 mg PO DAILY 02/19/21 02/19/21 History spironolacton-hydrochlorothiaz 0.5 tab PO DAILY 02/19/21 02/19/21 History Past Med/Surg History Medical History (Updated 02/20/21 @ 05:45 by Chance Brambila MD) Benign prostate hyperplasia COPD (chronic obstructive pulmonary disease) with chronic bronchitis Coronary artery disease Diabetes mellitus Disturbance in sleep behavior ESRD (end stage renal disease) Hypertension Hypothyroidism Obstructive sleep apnea PVD (peripheral vascular disease) Surgical History H/O right inguinal hernia repair Open right inguinal hernia repair with mesh. Dr. 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 Required: No Beliefs That Will Affect Care: None marital status: Current Living Situation: Spouse current occupational status: retired Other Information That Helps Us Care for You: No Feels Safe at Home: Yes Safety Concerns: Feels Safe At This Time Assistive Devices: Oxygen - Continuous Review of Systems Review of Systems: As per HPI, all 10 systems reviewed, all other ROS negative Physical Exam Physical Exam: GENERAL: Comfortable, pleasant, no respiratory distress SKIN: Pallor, warm HEENT: Pale palpebral conjunctivae, L facial palsy (chronic as per patient), moist buccal mucosa, nasal cannula in place NECK : Supple, no tenderness CHEST : Decreased breath sounds, no tenderness HEART : RRR, no obvious murmurs ABDOMEN: Some distention, left inguinal tenderness EXTREMITIES : Minimal LE swelling, no LE tenderness, no other conspicuous deformities noted NEUROLOGIC : Coherent, chronic left facial palsy, no other gross focality Results & Data Results & Data ([facility]) Vital Signs (Past 12 Hours) Vital Signs Temp Pulse Resp BP Pulse Ox 02/19/21 20:39 81 14 96 02/19/21 20:13 37.0 C 18 101/53 L 95 Laboratory Results Laboratory Results WBC 10.44 K/uL (4.8-10.8) 02/19/21 21:20 RBC 3.21 M/uL (4.7-6.1) L 02/19/21 21:20 Hgb 10.3 g/dL (14.0-18.0) L 02/19/21 21:20 Hct 30.9 % (42-52) L 02/19/21 21:20 MCV 96.3 fL (80-100) 02/19/21 21:20 MCH 32.1 pg (25-34) 02/19/21 21:20 MCHC 33.3 g/dL (32-36) 02/19/21 21:20 RDW Std Deviation 50.2 fL (36.4-46.3) H 02/19/21 21:20 RDW Coeff of Manoj 14.2 % (11.5-14.5) 02/19/21 21:20 Plt Count 180 K/uL (130-400) 02/19/21 21:20 MPV 9.5 fL (7.4-10.4) 02/19/21 21:20 Immature Gran % (Auto) 0.2 % 02/19/21 21:20 Neut % (Auto) 87.8 % 02/19/21 21:20 Lymph % (Auto) 5.0 % 02/19/21 21:20 [place] % (Auto) 5.8 % 02/19/21 21:20 Eos % (Auto) 0.9 % 02/19/21 21:20 Baso % (Auto) 0.3 % 02/19/21 21:20 Neut # (Auto) 9.17 K/uL (1.4-6.5) H 02/19/21 21:20 Lymph # (Auto) 0.52 K/uL (1.2-3.4) L 02/19/21 21:20 [place] # (Auto) 0.61 K/uL (0.11-0.59) H 02/19/21 21:20 Eos # (Auto) 0.09 K/uL (0-0.5) 02/19/21 21:20 Baso # (Auto) 0.03 K/uL (0-0.2) 02/19/21 21:20 Immature Gran # (Auto) 0.02 K/uL (0.00-0.02) 02/19/21 21:20 PT 10.6 Seconds (9.0-12.0) 02/19/21 21:20 INR 1.0 (0.9-1.1) 02/19/21 21:20 Sodium 138 mmol/L (136-145) 02/19/21 21:20 Potassium 3.6 mmol/L (3.5-5.1) 02/19/21 21:20 Chloride 98 mmol/L (98-107) 02/19/21 21:20 Carbon Dioxide 34 mmol/L (21-32) H 02/19/21 21:20 Anion Gap 6.0 (3-11) 02/19/21 21:20 BUN 21 mg/dl (7-18) H 02/19/21 21:20 Creatinine 3.35 mg/dl (0.6-1.4) H 02/19/21 21:20 Est Cr Clr Drug Dosing 15.1 ml/min 02/19/21 21:20 Est GFR ( Amer) 18.8 02/19/21 21:20 Est GFR (Non-Af Amer) 16.2 02/19/21 21:20 BUN/Creatinine Ratio 6.1 (10-20) L 02/19/21 21:20 Glucose 203 mg/dl (70-99) H 02/19/21 21:20 POC Glucose 231 mg/dl (70-99) H 02/19/21 20:23 Calcium 9.4 mg/dl (8.5-10.1) 02/19/21 21:20 Magnesium 2.1 mg/dl (1.8-2.4) 02/19/21 21:20 Total Bilirubin 0.6 mg/dl (0.2-1) 02/19/21 21:20 AST 23 U/L (15-37) 02/19/21 21:20 ALT 14 U/L (12-78) 02/19/21 21:20 Alkaline Phosphatase 80 U/L (45-117) 02/19/21 21:20 Troponin I 0.804 ng/ml (0-0.045) H* 02/19/21 21:20 Total Protein 7.1 gm/dl (6.4-8.2) 02/19/21 21:20 Albumin 2.9 gm/dl (3.4-5.0) L 02/19/21 21:20 Globulin 4.2 gm/dl (2.5-4.0) H 02/19/21 21:20 Albumin/Globulin Ratio 0.7 (0.9-2) L 02/19/21 21:20 TSH 4.280 uIu/ml (0.300-4.500) 02/19/21 21:20 COVID-19 Eval Order CovFluRsv at [facility] 02/19/21 Unknown Impressions Chest X-Ray 02/19/21 20:39 SINGLE VIEW CHEST CLINICAL HISTORY: Generalized weakness. FINDINGS: An AP, portable, upright chest radiograph is compared to study dated 11/04/2020. The heart is enlarged noting atherosclerotic calcification of the thoracic aorta. There is evidence of previous cardiac valve surgery. There is pulmonary vascular congestion. Bilateral airspace opacities are seen throughout both lungs. There are calcified hilar nodes as well as calcified granulomas. No large pleural effusion or pneumothorax is seen. The skeletal structures are os teopenic. The bony thorax is grossly intact. IMPRESSION: 1. Cardiomegaly with evidence of congestive failure. 2. Diffuse bilateral interstitial airspace opacities could represent pulmonary edema and/or an infectious/inflammatory pneumonitis. Clinical correlation will be required. ACT 112: Negative or not required by law. Electronically signed by: Jeovanny Kennedy M.D. 02/19/2021 9:[address] abdomen pelvis initial read: Left inguinal hernia containing mostly fat and very small segment of colon. No bowel obstruction. Cardiomegaly and transaortic valve replacement. Old granulo matous disease. No pancreatitis. Bladder distention. Status post TURP. Diverticulosis. Abdominal mass. Interstitial pulmonary opacities could be from interstitial edema, pneumonia, component of chronic interstitial lung disease. Diagnostic Findings EKG as per my interpretation: Rate 80, NSR, LAD, LAFB, incomplete RBBB, 1 AVB, no ischemia
[2021-02-19 23:07] LABS: Influenza A virus by PCR Negative (Neg); Influenza B virus by PCR Negative (Neg); RSV by PCR Negative (Neg); SARS CoV2 RNA(COVID-19) InHosp NEGATIVE (Negative)
[2021-02-20] MEDS ORDERED: Heparin IV Adult Wt-Based Low-Dose *NO* Bolus Protocol IV STA (02:35)
[2021-02-20] MEDS ORDERED: ASPIRIN 81 MG ECTAB PO STA (02:41)
--- NOTE | 2021-02-20 02:42 | Communication Note ---
Date of Service: February 20, 2021 Second troponin noted to be 5.83. Patient asymptomatic. AP NSTEMI Change to full admission IV heparin Continue antiplatelet Rx, beta-martina and statin meds Trend troponin TTE, Cardiology consult RE ACS N.p.o. until patient seen by Cardiology in a.m. In anticipation of procedure.
[2021-02-20] MEDS ORDERED: GLUCOSE 40% GEL 15 GM TUBE PO PRN (03:06)
[2021-02-20] MEDS ORDERED: HYDROmorphone INJ 0.5 MG/0.5 ML SYR IV PRN (03:06)
[2021-02-20] MEDS ORDERED: ACETAMINOPHEN 325 MG TAB PO PRN (03:06)
[2021-02-20] MEDS ORDERED: GLUCOSE 10 TABS/TUBE PO PRN (03:06)
[2021-02-20] MEDS ORDERED: PROMETHAZINE HCL 6.25 MG in SODIUM CHLORIDE 0.9% 50 ML IV PRN (03:06)
[2021-02-20] MEDS ORDERED: traMADol HCL 50 MG TABLET PO PRN (03:06)
[2021-02-20] MEDS ORDERED: GLUCAGON FOR INJ 1 MG VIAL SQ PRN (03:06)
[2021-02-20] MEDS ORDERED: DEXTROSE 50% 50 ML SYRINGE IV PRN (03:06)
[2021-02-20] MEDS ORDERED: CARBOHYDRATES FOR HYPOGLYCEMIA PO PRN (03:06)
[2021-02-20] MEDS ORDERED: DOCUSATE SODIUM 100 MG CAP PO PRN (03:06)
[2021-02-20] MEDS: HEPARIN SODIUM/DEXTROSE 25,000 UNITS/500 ML BAG IV SCH (03:42)
[2021-02-20 03:50] LABS: Partial Thromboplastin Ratio 0.9; Partial Thromboplastin Time 22.4 Seconds (21.0-31.0)
[2021-02-20] MEDS: INSULIN ASPART 100 UNITS/ML 3 ML PEN SC SCH ×5 (04:04→21:40)
[2021-02-20] MEDS: LEVOTHYROXINE SODIUM 100 MCG TABLET PO SCH (05:42)
[2021-02-20 06:05] LABS: Basophils # (auto) 0.05 K/uL (0-0.2); Basophils % (auto) 0.6 %; Eosinophils # (auto) 0.13 K/uL (0-0.5); Eosinophils % (auto) 1.7 %; Hematocrit (blood only) 29.9 % (42-52); Immature Granulocytes # (auto) 0.02 K/uL (0.00-0.02); Immature Granulocytes % (auto) 0.3 %; Lymphocytes # (auto) 0.96 K/uL (1.2-3.4); Lymphocytes % (auto) 12.3 %; Mean Corpuscular Hemoglobin 32.3 pg (25-34); Mean Corpuscular Hgb Conc 33.4 g/dL (32-36); Mean Corpuscular Volume 96.5 fL (80-100); Mean Platelet Volume 8.7 fL (7.4-10.4); Monocytes # (auto) 0.49 K/uL (0.11-0.59); Monocytes % (auto) 6.3 %; Neutrophils # (auto) 6.17 K/uL (1.4-6.5); Neutrophils % (auto) 78.8 %; Platelet Count 152 K/uL (130-400); RDW Coefficient of Variation 14.3 % (11.5-14.5); RDW Standard Deviation 50.1 fL (36.4-46.3); White Blood Count 7.82 K/uL (4.8-10.8)
[2021-02-20 06:21] LABS: Partial Thromboplastin Ratio 1.2; Partial Thromboplastin Time 31.9 Seconds (21.0-31.0)
[2021-02-20 06:35] LABS: BUN Creatinine Ratio 6.3 (10-20); Creatinine Clr Calc Pharmacy 14.2 ml/min; Est GFR (African American) 16.6; Est GFR (Non-African American) 14.3; Potassium 3.8 mmol/L (3.5-5.1)
[2021-02-20 06:41] LABS: Troponin I 9.04 ng/ml (0-0.045)
[2021-02-20] MEDS: SEVELAMER HCL 800 MG TABLET PO SCH ×4 (07:59→16:58)
[2021-02-20] MEDS: SPIRONOLACTONE/HCTZ 25-25 PO SCH (08:00)
[2021-02-20] MEDS: CLOPIDOGREL BISULFATE 75 MG TAB PO SCH (08:00)
[2021-02-20] MEDS: CHOLECALCIFEROL 1,000 UNITS 25 MCG TAB PO SCH (08:02)
[2021-02-20] MEDS: allopurinoL 100 MG TAB PO SCH (08:02)
--- NOTE | 2021-02-20 08:56 | CT Scan Report ---
CT OF THE ABDOMEN AND PELVIS WITHOUT CONTRAST CLINICAL HISTORY: Abdominal pain, hx hernia. COMPARISON STUDY: CT of the abdomen and pelvis March 03, 2020. Renal ultrasound March 25, 2020. TECHNIQUE: Axial images of the abdomen and pelvis were obtained without IV contrast. Images were revi ewed in the axial, sagittal, and coronal planes. Automated exposure control was utilized for the warner dy. A dose lowering technique was utilized adhering to the principles of ALARA. FINDINGS: Visualized portions of the lower chest demonstrate a prosthetic aortic valve. There is mode rate cardiomegaly. Calcified right hilar lymph nodes are noted. Subpleural reticulation and groundgla ss opacities within the lung bases have increased since exam of March 03, 2020. No pneumatosis, free air or portal venous gas is present. Evaluation of the abdomen and pelvis is sub optimal on this unenhanced examination. There are calcified granulomas within the spleen. Extensive v ascular calcification is noted. There is mild dilatation of the left common iliac artery. Unenhanced images of the liver, adrenal glands and pancreas are unremarkable. There is no biliary or pancreatic ductal dilatation. Bilateral renal lesions were shown to reflect cysts on prior ultrasound. There is no hydronephrosis. Bladder is moderately distended. There is no evidence for a bowel obstruction. The re is no evidence for acute appendicitis. A portion of the sigmoid colon slightly extends into a left internal hernia. This does not result in a bowel obstruction. Previous umbilical hernia repair with mesh is noted. There is also right inguinal hernia repair with mesh. No lymphadenopathy is present. T here is body wall edema. IMPRESSION: 1. Portion of the sigmoid colon slightly extends into a left inguinal hernia. No resultant bowel obst ruction. 2. Colonic diverticulosis without evidence for acute diverticulitis. 3. Increase in reticulation and groundglass opacities within the lungs since prior abdominal CT. The findings could reflect progression of interstitial lung disease, pulmonary edema or an infectious pro cess. 4. Distended bladder. ACT 112: Negative or not required by law. Electronically signed by: Gallo Engel M.D. 02/20/2021 8:55 AM
[2021-02-20] MEDS ORDERED: INSULIN GLARGINE SOLOSTAR 100 UNITS/ML 3 ML PEN SC SCH (09:00)
[2021-02-20] MEDS ORDERED: ASPIRIN 81 MG ECTAB PO SCH ×2 (09:00)
[2021-02-20] MEDS ORDERED: NON-FORMULARY MEDICATION (B Complex-Vitamin C-Folic Acid [Rena-Vite] 0.8 mg tablet) PO SCH (09:00)
[2021-02-20 10:37] LABS: Partial Thromboplastin Ratio 1.3; Partial Thromboplastin Time 34.4 Seconds (21.0-31.0)
[2021-02-20] MEDS ORDERED: HEPARIN IV BOLUS 3,000 UNITS in SYRINGE 0 ML IV ONE (11:00)
--- NOTE | 2021-02-20 11:14 | Cardiology Consultation ---
Date of Consultation February 20, 2021 Assessment & Plan (1) CANNON (dyspnea on exertion): (2) Acute non-ST elevation myocardial infarction (NSTEMI): EKG last night and again this am with SR without significant ST changes. Patient with chronic dyspnea. Echocardiogram this am reveals normal LVEF no regional wall motion abnormalities, LVEF actually better compared to 10/2020. Echo reveals new right ventricular dysfunction compared to 10/2020 with pulmonary pressure > 60 mm Hg, also new. Difficult to interpret Troponin I of 9 ng/ml given renal disease. Has residual RCA territory CAD, so certainly has pre-existing substrate for ischemia. I believe his his left main / LAD/ CX stent were occluded he would have presented with severe transmural infarction . Echo reveals normal TAVR function. Plan for today: NPO Continue IV heparin CTA for PE Lunch after CT HD. Continue ASA, clopidogrel (chronic), metoprolol, atorvastatin. History of Present Illness Attending Physician: Kelsie Menendez MD History of Present Illness Mr Ace (Joe) is an 80 year old male seen in cardiology consultation per the request of Dr Brambila for the evaluation of shortness of breath, NSTEMI. The patient's primary health and fitness professor is Dr Gross our practice. He follows with Dr Arambula for his ESRD and HD. He notes ongoing severe dyspnea with exertion that he believes never improved after his complex PCI and TAVR in fall. He notes no history of lung disease. Quit smoker remotely. Denies clarence chest pain. Notes he "ran out of oxygen" at home , felt more short of breath and presented to the ED. Cardiac History: In July,, patient had presented to the outpatient cardiology clinic with chest discomfort, and was referred to the emergency room. He was diagnosed with a non-ST segment elevation acute coronary syndrome with severe ST segment depression, and underwent emergent cardiac catheterization performed by Dr. Thomas Rico of our practice with findings of severe multivessel coronary artery disease including 95% proximal LAD with thrombus, subtotal 99% ostial circumflex coronary stenosis, 80 to 60% ostial right coronary artery stenosis. The patient underwent placement of an intra-aortic balloon pump at that time and was transferred to [facility] [place] surgery consultation due to concerns of multivessel coronary disease and aortic valve stenosis. Evaluation there confirmed the presence of severe aortic stenosis. He was seen by cardiothoracic surgery interventional cardiology and given his operative risk, he underwent complex percutaneous coronary intervention with intra-aortic balloon pump support, receiving bifurcating drug-eluting stents of the left main to the LAD and circumflex on 08/07/20. He returned to the cardiac catheterization laboratory at [facility] on 09/17/2020 and underwent transcatheter aortic valve replacement with a #26 Edward Edna S3 Ultra valve. Allergies Allergy/AdvReac Type Severity Reaction Status Date / Time No Known Allergies Allergy Verified 02/19/21 20:35 Home Medications Medication Instructions Recorded Confirmed Type atorvastatin 80 mg tablet 40 mg PO HS tab 06/01/19 02/19/21 History cholecalciferol (vitamin D3) 25 1,000 unit PO QAM cap 06/01/19 02/19/21 History mcg (1,000 unit) capsule levothyroxine 100 mcg tablet 100 mcg PO QAM tab 06/01/19 02/19/21 History Tradjenta 5 mg PO DAILY 08/02/20 02/19/21 History allopurinol [Zyloprim] 200 mg PO DAILY 08/02/20 02/19/21 History furosemide [Lasix] 40 mg PO QAM 08/02/20 02/19/21 History Humulin 70/30 U-100 KwikPen 8 unit SUBCUT BID 11/04/20 02/19/21 History Aarti-Alberto 1 tab PO QAM 11/04/20 02/19/21 History aspirin 81 mg PO QAM 11/04/20 02/19/21 History clopidogrel [Plavix] 75 mg PO QAM 11/04/20 02/19/21 History docusate sodium 100 mg PO UD PRN 11/04/20 02/19/21 History metoprolol succinate 12.5 mg PO QPM 11/04/20 02/19/21 History sevelamer carbonate [Renvela] 1,600 mg PO TIDM 11/04/20 02/19/21 History sildenafil (pulm.hypertension) 20 mg PO DAILY 02/19/21 02/19/21 History spironolacton-hydrochlorothiaz 0.5 tab PO DAILY 02/19/21 02/19/21 History Patient History Medical History (Updated 02/20/21 @ 11:08 by Bud Castorena DO) Benign prostate hyperplasia COPD (chronic obstructive pulmonary disease) with chronic bronchitis Coronary artery disease Diabetes mellitus Disturbance in sleep behavior ESRD (end stage renal disease) Hypertension Hypothyroidism Obstructive sleep apnea PVD (peripheral vascular disease) Surgical History H/O right inguinal hernia repair Open right inguinal hernia repair with mesh. Dr. 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 Required: No Beliefs That Will Affect Care: None marital status: Current Living Situation: Spouse current occupational status: retired Other Information That Helps Us Care for You: No Feels Safe at Home: Yes Safety Concerns: Feels Safe At This Time Assistive Devices: None Review of Systems Review of Systems: All systems reviewed & are unremarkable except as noted in HPI & below Physical Exam Physical Exam: Temp Pulse Resp BP Pulse Ox 36.6 C 76 18 133/67 96 02/20/21 08:00 02/20/21 08:00 02/20/21 08:00 02/20/21 08:00 02/20/21 08:00 Constitutional: + thin; no acute distress Respiratory: normal respiratory effort, lungs clear to auscultation Cardiovascular: RRR, no murmur, no edema Gastrointestinal (Abdomen): normal bowel sounds, soft, nontender, no hepatosplenomegaly Neurologic: PERRL, EOMI, accommodation nl, no face palsy, no dysarthria Results & Data ([facility]) Vital Signs (Past 12 Hours) Vital Signs Temp Pulse Pulse Resp BP BP Pulse Ox 02/20/21 08:00 36.6 C 79 76 18 133/67 96 02/20/21 02:46 36.3 C L 81 18 144/63 H 92 02/20/21 02:01 79 16 95 02/20/21 02:00 79 12 123/53 L 96 02/20/21 01:31 87 30 H 92 02/20/21 01:30 87 23 131/66 93 02/20/21 01:01 84 18 100 02/20/21 01:00 78 16 114/50 L 100 02/20/21 00:31 81 16 98 02/20/21 00:30 82 14 136/59 L 100 02/20/21 00:14 96 H 28 H 138/58 L 88 L 02/20/21 00:13 97 H 31 H 90 02/19/21 23:15 74 19 100 02/19/21 23:12 76 18 95 02/19/21 23:02 80 13 126/67 94 02/19/21 23:01 80 19 93 Laboratory Results Cardiac Enzymes 02/19/21 02/20/21 02/20/21 Range/Units 21:20 01:55 05:45 AST 23 (15-37) U/L Troponin I 0.804 H* 5.830 H* 9.040 H* (0-0.045) ng/ml Coagulation 02/19/21 02/19/21 02/20/21 Range/Units 21:20 21:20 05:45 PT 10.6 (9.0-12.0) Seconds APTT 22.4 31.9 H (21.0-31.0) Seconds 02/20/21 Range/Units 09:59 PT (9.0-12.0) Seconds APTT 34.4 H (21.0-31.0) Seconds Lipids 02/20/21 Range/Units 05:45 Triglycerides 46 (0-150) mg/dl Cholesterol 140 (0-200) mg/dl HDL Cholesterol 52 mg/dl Cholesterol/HDL Ratio 3 CBC 02/19/21 02/20/21 Range/Units 21:20 05:45 WBC 10.44 7.82 (4.8-10.8) K/uL RBC 3.21 L 3.10 L (4.7-6.1) M/uL Hgb 10.3 L 10.0 L (14.0-18.0) g/dL Hct 30.9 L 29.9 L (42-52) % Plt Count 180 152 (130-400) K/uL Neut # (Auto) 9.17 H 6.17 (1.4-6.5) K/uL Lymph # (Auto) 0.52 L 0.96 L (1.2-3.4) K/uL [place] # (Auto) 0.61 H 0.49 (0.11-0.59) K/uL Eos # (Auto) 0.09 0.13 (0-0.5) K/uL Baso # (Auto) 0.03 0.05 (0-0.2) K/uL Comprehensive Metabolic Panel 02/19/21 02/20/21 Range/Units 21:20 05:45 Sodium 138 140 (136-145) mmol/L Potassium 3.6 3.8 (3.5-5.1) mmol/L Chloride 98 102 (98-107) mmol/L Carbon Dioxide 34 H 37 H (21-32) mmol/L BUN 21 H 24 H (7-18) mg/dl Creatinine 3.35 H 3.71 H D (0.6-1.4) mg/dl Glucose 203 H 133 H (70-99) mg/dl Calcium 9.4 9.0 (8.5-10.1) mg/dl AST 23 (15-37) U/L ALT 14 (12-78) U/L Alkaline Phosphatase 80 (45-117) U/L Total Protein 7.1 (6.4-8.2) gm/dl Albumin 2.9 L (3.4-5.0) gm/dl Intake and Output 02/19/21 02/20/21 02/20/21 22:59 06:59 14:59 Intake Total 1000 / 1000 112.533 / 112.533 Balance 1000 / 1000 112.533 / 112.533 Intake: IV 1000 / 1000 112.533 / 112.533 HEPARIN SODIUM/DEXTROSE 25,000 112.533 / 112.533 units In 500 ml @ 800 UNITS/HR 16 mls/hr IV .Q24H PARISA Rx#: [id number] Nss 1000ML 1,000 ml @ 999 mls/ 1000 / 1000 hr IV .Q1H1M PARISA Rx#:[id number] Other: Weight 63 kg 65.5 kg Weight Measurement Method Built in [facility] Standing Scale
--- NOTE | 2021-02-20 11:18 | Consultation Report ---
DATE OF CONSULTATION: 02/20/2021 REASON FOR CONSULT: Dialysis patient admitted with shortness of breath. HISTORY OF PRESENT ILLNESS: The patient is an 80-year-old male who has chronic respiratory failure secondary to COPD as well as pulmonary fibrosis, pulmonary hypertension, on home oxygen. He also has chronic diastolic heart failure as well as coronary artery disease status post stent, aortic stenosis, status post TAVR, longstanding diabetes, peripheral vascular disease and also a dialysis patient. He gets dialysis in [place] for Wednesday, Wednesday, Wednesday through his left arm AV fistula. He has been having shortness of breath for a long time now secondary to all his underlying problems. Even after the TAVR, he really did not feel much better from breathing standpoint. He is not tolerating dialysis very well. As per the patient, after 2-1/2 hours, he gets very weak and lightheaded and sometimes dizzy as well as cramping. FAMILY HISTORY: Negative for renal disease or dialysis. PERSONAL AND SOCIAL HISTORY: History of tobacco use in the past. 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 He lives with his . ALLERGIES: None. HOME MEDICATIONS: Prior to hospitalization, was reviewed in detail and is as per H and P. PAST MEDICAL AND SURGICAL HISTORY: Benign prostatic hyperplasia, severe COPD with chronic bronchitis, coronary artery disease status post stent, type 2 diabetes, end-stage renal disease, on dialysis Wednesday, Wednesday, Wednesday through AV fistula, hypertension, hypothyroidism, obstructive sleep apnea, peripheral vascular disease, pulmonary hypertension, pulmonary fibrosis, aortic stenosis, status post TAVR. REVIEW OF SYSTEMS: As per HPI. Positive review of system includes progressive deconditioning for the last few months and progressive shortness of breath. Denies any nausea, vomiting, chest pain, fever, increased productive cough in the last few days. PHYSICAL EXAMINATION: GENERAL: Elderly white male who is not in overt respiratory distress in resting position. He is awake, alert, oriented. VITAL SIGNS: Blood pressure is 133/67, pulse rate 76, temperature 36.6, 96% on 2 liter nasal cannula. HEENT: Mucous membranes moist. CHEST: Bilateral decreased breath sounds, prolonged expiration. Occasional crackles. CARDIOVASCULAR: S1 and S2, regular. Systolic murmur heard. GASTROINTESTINAL: Abdomen is soft, nontender. EXTREMITIES: Shows no edema. LABORATORY TESTS: BUN 24, creatinine 3.71. Sodium 140, potassium 3.8. Hemoglobin 10, platelet count normal, WBC count 7.8. Chest x-ray shows evidence of pulmonary congestion as well as abdominal and pelvis CT scan. ASSESSMENT AND PLAN: An 80-year-old male with multiple cardiopulmonary disease at baseline, which has fairly advanced as well as end-stage renal disease, on hemodialysis Wednesday, Wednesday, Wednesday, now admitted with shortness of breath. 1. End-stage renal disease: This is what I have been consulted. He normally gets dialysis on Wednesday, Wednesday, Wednesday and he did have dialysis yesterday in his outpatient unit, but given the findings of pulmonary congestion or shortness of breath, I believe it is reasonable to do an extra dialysis for 2-1/2 hours today and take about 1.5 kilo off. There has been significant difficulty in removing the fluid as an outpatient. 2. Shortness of breath. He does not tolerate fluid removal very well as an outpatient, which makes it difficult challenge. He has multiple advanced cardiopulmonary diseases causing chronic shortness of breath. I believe the main cause is the pulmonary fibrosis and pulmonary hypertension, which are much more difficult to treat. But we will give him benefit of doubt and do extra dialysis today. Next dialysis will likely be on Wednesday and will be for a longer time period. As per Cardiology, he is getting CT angiogram to rule out PE. This can be done before dialysis.
[2021-02-20 11:19] LABS: Hepatitis B Surface Antibody Immune
[2021-02-20 11:30] LABS: Hepatitis B Surf Ag Rflx Conf Neg (Neg)
[2021-02-20] MEDS ORDERED: SODIUM CHLORIDE 0.9% 1000ML 1,000 ML IV PRN (11:36)
[2021-02-20] MEDS ORDERED: OPTIRAY 320 125ml IV ONE (12:09)
--- NOTE | 2021-02-20 12:31 | CT Scan Report ---
CT ANGIOGRAPHY OF THE CHEST, PULMONARY EMBOLUS PROTOCOL CLINICAL HISTORY: Shortness of breath. Near syncopal episode. New RV strain on echo. COMPARISON STUDY: Chest radiograph November 04, 2020 and February 19, 2021. TECHNIQUE: Following IV administration of 120 mL of Optiray-320, helical axial images of the chest we re obtained utilizing the pulmonary embolus protocol. Maximal intensity projections and sagittal and coronal reformats were viewed on an independent 3D workstation. IV contrast was administered withou t complication. Automated exposure control was utilized for the study. A dose lowering technique wa s utilized adhering to the principles of ALARA. CT DOSE: 333.62 mGy.cm FINDINGS: No pulmonary emboli are identified although the subsegmental pulmonary arteries within the lower lobes are suboptimally assessed due to respiratory motion. Prosthetic aortic valve is noted. T here is moderate cardiomegaly. There is dilatation of the right heart chambers with straightening of the interventricular septum. There is no pericardial effusion. Note is made of multiple mildly enlarg ed mediastinal lymph nodes. Index subcarinal lymph node measures 1.5 cm in short axis diameter. Calci fied mediastinal and right hilar lymph nodes are present. There is no pneumothorax or pleural effusio n. The central airways are patent. The lungs are suboptimally assessed due to respiratory motion. The re is a possible 8 mm right upper lobe pulmonary nodule on image 196. There is mild upper lobe predom inant emphysema. In addition, there is extensive reticulation within the lungs, predominately subpleu ral. Additional groundglass opacities are noted. Findings within the lower lungs have progressed sinc e abdominal CT of March 03, 2020. There are calcified granulomas within the spleen. Bony thorax is un remarkable. There is no thoracic aortic dissection. Extensive coronary artery calcification is presen t. IMPRESSION: 1. No pulmonary emboli identified. 2. Mild emphysema. In addition, progression of subpleural reticulation and groundglass opacities with nodularity, likely within a lymphatic distribution, better depicted on abdominal CT of February 19, 2021 . This has progressed since CT of March 03, 2021. This is nonspecific but favors progression of inter stitial lung disease. Pulmonary edema or an infectious process could appear similar but are considere d less likely. 3. Dilatation of the right heart chambers with straightening of the interventricular septum indicativ e of elevated right heart pressures. 4. Multiple mildly enlarged mediastinal lymph nodes. These are nonspecific but may be related to inte rstitial lung disease. 5. Possible 8 mm right upper lobe pulmonary nodule. A follow-up chest CT in 6 months is recommended. 6. Evidence for a previous granulomatous process. ACT 112: Negative or not required by law. Electronically signed by: Gallo Engel M.D. 02/20/2021 12:29 PM
--- NOTE | 2021-02-20 14:04 | Hospitalist Progress Note ---
Date of Service February 20, 2021 Assessment & Plan (1) SOB (shortness of breath): Exertional shortness of breath NSTEMI Chronic respiratory failure secondary to COPD/pulmonary fibrosis as per records/pulmonary HTN on home O2 Baseline congestion on CXR, hx diastolic heart failure ESRD on HD hx CAD status post stent, PVD status post percutaneous femoral AVR DM2 insulin requiring, well-controlled as of recent hemoglobin A1c of 6.17 February 2021 chronic anemia, hemoglobin at baseline chronic thrombocytopenia past tobacco abuse Presented with worsening shortness of breath and chest discomfort. Elevated troponin. Cardiology has been consulted. Patient remains NPO. Continue with heparin infusion for now. Plan is to obtain CTA to rule out pulmonary embolism followed by hemodialysis. Continue routine dialysis on Wednesday/Wednesday/Wednesday. Nephrology has been consulted. On for dialysis session today, will reassess tomorrow for another patient. Basal insulin, ISS BG goal [id number], carb count coverage DVT prophylaxis. 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 Admission and Anticipated Discharge Date Admission Date: February 20, 2021 Subjective Currently resting comfortably. Denies any chest pain at the moment. Shortness of breath is improved. Denies any headache or dizziness. Denies any abdominal pain, diarrhea or any other weakness. Review of Systems Review of Systems: All systems reviewed & are unremarkable except as noted in HPI & below Physical Exam Physical Exam: General: A&Ox3. HENT: NCAT, MMM, EOMI Eyes: PERRLA Neck: Supple, normal range of motion CVS: normal rate and rhythm Resp: b/l decreased breath sounds Abdomen: Soft, ND/NT, +BS Extremities: No c/c/e Neuro: face symmetric, no gross focal deficits appreciated Skin: warm and dry, no rashes/lesions/errythema MSK: normal ROM, no joint swelling/erythema Results & Data Results & Data ([facility] [place]) Vital Signs (Past 12 Hours) Vital Signs Temp Pulse Pulse Resp BP Pulse Ox 02/20/21 11:42 36.7 C 75 18 132/62 96 02/20/21 08:00 36.6 C 79 76 18 133/67 96 02/20/21 02:46 36.3 C L 81 18 144/63 H 92
--- NOTE | 2021-02-20 15:10 | Electrocardiogram Report ---
Test Reason : Blood Pressure : / mmHG Vent. Rate : 080 BPM Atrial Rate : 080 BPM P-R Int : 234 ms QRS Dur : 102 ms QT Int : 400 ms P-R-T Axes : 052 -44 016 degrees QTc Int : 462 ms Sinus rhythm with 1st degree A-V block Left axis deviation Incomplete right bundle branch block Nonspecific ST abnormality Abnormal ECG When compared with ECG of 04-NOV-2020 11:00, Premature ventricular complexes are no longer Present Incomplete right bundle branch block is now Present Confirmed by Carlos Gutierrez ([id number]) on 02/20/2021 3:09:49 PM Referred By: REFERRED SELF Confirmed By:Carlos Gutierrez
--- NOTE | 2021-02-20 15:14 | Electrocardiogram Report ---
Test Reason : Blood Pressure : / mmHG Vent. Rate : 076 BPM Atrial Rate : 076 BPM P-R Int : 234 ms QRS Dur : 104 ms QT Int : 434 ms P-R-T Axes : 062 -38 039 degrees QTc Int : 488 ms Sinus rhythm with sinus arrhythmia with 1st degree A-V block Left axis deviation Nonspecific ST abnormality Prolonged QT Abnormal ECG When compared with ECG of 19-FEB-2021 22:17, (unconfirmed) Incomplete right bundle branch block is no longer Present Confirmed by Carlos Gutierrez ([id number]) on 02/20/2021 3:13:43 PM Referred By: REFERRED SELF Confirmed By:Carlos Gutierrez
[2021-02-20 17:31] LABS: Partial Thromboplastin Ratio 1.8
[2021-02-20 17:34] LABS: Partial Thromboplastin Time 48.4 Seconds (21.0-31.0)
[2021-02-20] MEDS: ATORVASTATIN 40 MG TAB PO SCH (21:07)
[2021-02-20] MEDS: METOPROLOL SUCC 25MG EXT REL TAB PO SCH (21:08)
[2021-02-21] MEDS: LEVOTHYROXINE SODIUM 100 MCG TABLET PO SCH (05:55)
[2021-02-21] MEDS: HEPARIN SODIUM/DEXTROSE 25,000 UNITS/500 ML BAG IV SCH (06:08)
[2021-02-21 06:42] LABS: Partial Thromboplastin Ratio 1.7; Partial Thromboplastin Time 43.8 Seconds (21.0-31.0)
[2021-02-21] MEDS: INSULIN ASPART 100 UNITS/ML 3 ML PEN SC SCH ×4 (08:19→20:33)
[2021-02-21] MEDS: SPIRONOLACTONE/HCTZ 25-25 PO SCH (08:21)
[2021-02-21] MEDS: ASPIRIN 81 MG ECTAB PO SCH (08:22)
[2021-02-21] MEDS: CHOLECALCIFEROL 1,000 UNITS 25 MCG TAB PO SCH (08:23)
[2021-02-21] MEDS: allopurinoL 100 MG TAB PO SCH (08:23)
[2021-02-21] MEDS: CLOPIDOGREL BISULFATE 75 MG TAB PO SCH (08:23)
[2021-02-21] MEDS: SEVELAMER HCL 800 MG TABLET PO SCH ×4 (08:24→17:56)
--- NOTE | 2021-02-21 11:21 | Cardiology Progress Note ---
Date of Service February 21, 2021 Assessment & Plan (1) Acute non-ST elevation myocardial infarction (NSTEMI): Likely type II event in setting of fixed underlying CAD. Troponin I peaked at 9 ng/ml ,down to 4.1 ng/ml today. No clarence angina, just dyspnea that has been ongoing for at least 4 months. Had run out of supplemental O2 at home. EKG today is stable. Continue medical RX ASA, clopidogrel (chronic) ,Toprol, atorvastatin Complete 48 hours of IV heparin infusion. (2) Right heart failure with reduced right ventricular function: No pulmonary embolism on CT. Interstitial lung disease, likely explains symptoms of CAN[place](which were not relieved with PCI / TAVR). Continue oxygen. (3) S/P TAVR (transcatheter aortic valve replacement): Stable function on echo. (4) End-stage renal disease (ESRD): HD per nephro. Difficult to manage volume status. Want to run dry to help with breathing, however, has h/o syncope. BP stable. (5) NSVT (nonsustained ventricular tachycardia): 4 beat run of NSVT at 1:02 am on 02/21. Continue toprol. Complete Zio monitor (previously placed as outpt and pt is wearing now. Dr Rico to assume rounding on 02/22. DVT prophylaxis: on full AC dose UF heparin infusion. Admission and Anticipated Discharge Date Admission Date: February 20, 2021 Subjective Patient seen in follow up. Denies chest pain. Telemetry reveals SR in the 60s, 4 beat run of NSVT. Physical Exam Physical Exam: Temp Pulse Resp BP Pulse Ox 36.6 C 68 19 131/70 100 02/21/21 08:08 02/21/21 08:08 02/21/21 08:08 02/21/21 08:08 02/21/21 08:08 Constitutional: WD/WN, vitals as above Respiratory: Auscultation: + crackles; no rhonchi and no wheezes Cardiovascular: RRR, no murmur, no edema Gastrointestinal (Abdomen): normal bowel sounds, soft, nontender, no hepatosplenomegaly Neurologic: PERRL, EOMI, accommodation nl, no face palsy, no dysarthria Results & Data ([facility]) Vital Signs (Past 12 Hours) Vital Signs Temp Pulse Pulse Resp BP Pulse Ox 02/21/21 08:08 36.6 C 68 19 131/70 100 02/21/21 08:00 71 02/21/21 04:10 36.7 C 73 18 126/66 98 02/21/21 01:33 88 02/20/21 23:10 36.6 C 79 18 117/62 100 Laboratory Results Cardiac Enzymes 02/21/21 Range/Units 05:39 Troponin I 4.180 H* (0-0.045) ng/ml Coagulation 02/20/21 02/21/21 Range/Units 16:50 05:39 APTT 48.4 H* 43.8 H (21.0-31.0) Seconds Intake and Output 02/20/21 02/21/21 02/21/21 22:59 06:59 14:59 Intake Total 394.533 / 1186.650 329.584 / 1186.650 4.117 / 4.117 Balance 394.533 / 1186.650 329.584 / 1186.650 4.117 / 4.117 Intake: IV 154.533 / 496.650 229.584 / 496.650 4.117 / 4.117 HEPARIN SODIUM/DEXTROSE 25,000 154.533 / 496.650 229.584 / 496.650 4.117 / 4.117 units In 500 ml @ 950 UNITS/HR 19 mls/hr IV .Q24H [facility] Rx#: [id number] Oral 240 / 690 100 / 690 Other: Hemodialysis Ultrafiltration 1,500 Amount Weight 65.5 kg 64.2 kg Weight Measurement Method Built in [facility] Diagnostic Findings EKG this am , SR at 70 , first degree AV block, IRBBB, no significant ST changes.
--- NOTE | 2021-02-21 12:00 | Nephrology Progress Note ---
Date of Service February 21, 2021 Assessment & Plan Admission and Anticipated Discharge Date Admission Date: February 20, 2021 Subjective He had dialysis yesterday as an extra session for 2.5 hours. Does not appear it has made any difference with his breathing status. CT angio was negative for PE but he does have acute non ST elevation UT at this time. PHYSICAL EXAMINATION: GENERAL: Elderly white male who is not in overt respiratory distress in resting position. He is awake, alert, oriented. HEENT: Mucous membranes moist. CHEST: Bilateral decreased breath sounds, prolonged expiration. Occasional crackles. CARDIOVASCULAR: S1 and S2, regular. Systolic murmur heard. GASTROINTESTINAL: Abdomen is soft, nontender. EXTREMITIES: Shows no edema. LABORATORY TESTS: reviewed in detail ASSESSMENT AND PLAN: An 80-year-old male with multiple cardiopulmonary disease at baseline, which has fairly advanced as well as end-stage renal disease, on hemodialysis Wednesday, Wednesday, Wednesday, now admitted with shortness of breath. 1. End-stage renal disease: he will get dialysis tomorrow for 3 hours. Did not get much relief from breathing standpoint after dialysis. shortness of breath is mostly related with pulmonary fibrosis/ pulmonary hypertension. he is complaining he cannot handle longer dialysis and get sick after 2 hour 30 minutes. I have suggested him to discuss with his outpatient crosscutter rolled glass Dr. Arambula whether he can have 4 days a week dialysis but of shorter duration. patient said he will think about it. Results & Data ([facility]) Vital Signs (Past 12 Hours) Vital Signs Temp Pulse Pulse Resp BP Pulse Ox 02/21/21 11:47 36.6 C 77 16 128/58 L 100 02/21/21 08:08 36.6 C 68 19 131/70 100 02/21/21 08:00 71 02/21/21 04:10 36.7 C 73 18 126/66 98 02/21/21 01:33 88
[2021-02-21 13:39] LABS: Partial Thromboplastin Ratio 1.6; Partial Thromboplastin Time 42.7 Seconds (21.0-31.0)
--- NOTE | 2021-02-21 14:20 | Electrocardiogram Report ---
Test Reason : Blood Pressure : / mmHG Vent. Rate : 082 BPM Atrial Rate : 082 BPM P-R Int : 210 ms QRS Dur : 102 ms QT Int : 412 ms P-R-T Axes : 109 -33 070 degrees QTc Int : 481 ms Poor data quality, interpretation may be adversely affected Sinus rhythm with 1st degree A-V block with occasional Premature ventricular complexes Left axis deviation Pulmonary disease pattern Incomplete right bundle branch block Prolonged QT Abnormal ECG When compared with ECG of 20-FEB-2021 05:02, Premature ventricular complexes are now Present Incomplete right bundle branch block is now Present Confirmed by Carlos Gutierrez ([id number]) on 02/21/2021 2:20:17 PM Referred By: REFERRED SELF Confirmed By:Carlos Gutierrez
[2021-02-21] MEDS: ATORVASTATIN 40 MG TAB PO SCH (20:00)
[2021-02-21] MEDS: METOPROLOL SUCC 25MG EXT REL TAB PO SCH (20:00)
--- NOTE | 2021-02-21 23:17 | Hospitalist Progress Note ---
Date of Service February 21, 2021 Assessment & Plan (1) SOB (shortness of breath): Exertional shortness of breath likely secondary to NSTEMI, progression of Pulmonary Fibrosis NSTEMI hx CAD status post stent, PVD status post percutaneous femoral AVR troponin trending down from 9 to 4 continue heparin until tomorrow to complete 48 hrs on ASA, Plavix, Metoprolol XL appreciate Cardiology service recommendations Chronic respiratory failure secondary to COPD/pulmonary fibrosis as per records/pulmonary HTN on home O2 patient reports progression of dyspnea for the past month CT chest: 1. No pulmonary emboli identified. 2. Mild emphysema. In addition, progression of subpleural reticulation and groundglass opacities with nodularity, likely within a lymphatic distribution, better depicted on abdominal CT of February 19, 2021. This has progressed since CT of March 03, 2021. This is nonspecific but favors progression of interstitial lung disease. Pulmonary edema or an infectious process could appear similar but are considered less likely. 3. Dilatation of the right heart chambers with straightening of the interventricular septum indicative of elevated right heart pressures. 4. Multiple mildly enlarged mediastinal lymph nodes. These are nonspecific but may be related to interstitial lung disease. 5. Possible 8 mm right upper lobe pulmonary nodule. A follow-up chest CT in 6 months is recommended. 6. Evidence for a previous granulomatous process. --> now at baseline 3 L O2 will consult Pulmonary Baseline congestion on CXR, hx diastolic heart failure ESRD on HD --> s/p HD 02/20, plan for HD tomorrow DM2 insulin requiring, well-controlled as of recent hemoglobin A1c of 6.17 February 2021 --> ISS chronic anemia, hemoglobin at baseline chronic thrombocytopenia Admission and Anticipated Discharge Date Admission Date: February 20, 2021 Subjective ff up for shortness of breath, NSTEMI, ESRD, etc patient seen resting in bed, comfortable, on baseline 3 L of O2 via nasal cannula states breathing is about the same as during admission, reports progressive worsening of breathing at home denies cough, sputum, chest pain no chest pain, palpitations, dizziness no other symptoms Review of Systems Review of Systems: All systems reviewed & are unremarkable except as noted in Subjective Physical Exam Physical Exam: General- oriented x 3, not in distress, speaks in sentences with no effort or accessory muscle use Head- atraumatic Eyes- PERRL, EOMI, anicteric ENT- oropharynx clear Neck- supple, no JVD, no adenopathy, no thyromegaly; carotids +2/2, no bruits appreciated Lungs- (+) mild rhonchi BL, no wheezing, good air entry Heart- normal rate, regular rhythm; no murmurs Abdomen- normal bowel sounds, nondistended, soft, nontender, no masses or hepatosplenomegaly Extremities- no pretibial edema, no calf tenderness; peripheral pulses intact Neuro- alert, oriented x 3; CN 2-12 grossly intact; motor 5/5 bilaterally;sensation 100% on all extremities; no other gross focal neurologic deficits Skin- warm & dry Results & Data Results & Data ([place]) Vital Signs (Past 12 Hours) Vital Signs Temp Pulse Pulse Resp BP Pulse Ox 02/21/21 22:35 36.7 C 74 16 149/66 H 94 02/21/21 19:52 36.4 C L 70 18 132/61 91 02/21/21 15:45 36.5 C 67 19 158/68 H 100 02/21/21 11:47 36.6 C 77 16 128/58 L 100 Laboratory Results Home Medications Medication Instructions Recorded Confirmed atorvastatin 80 mg tablet 40 mg PO HS tab 06/01/19 02/19/21 cholecalciferol (vitamin D3) 25 1,000 unit PO QAM cap 06/01/19 02/19/21 mcg (1,000 unit) capsule levothyroxine 100 mcg tablet 100 mcg PO QAM tab 06/01/19 02/19/21 Tradjenta 5 mg PO DAILY 08/02/20 02/19/21 allopurinol [Zyloprim] 200 mg PO DAILY 08/02/20 02/19/21 furosemide [Lasix] 40 mg PO QAM 08/02/20 02/19/21 Humulin 70/30 U-100 KwikPen 8 unit SUBCUT BID 11/04/20 02/19/21 Aarti-Alberto 1 tab PO QAM 11/04/20 02/19/21 aspirin 81 mg PO QAM 11/04/20 02/19/21 clopidogrel [Plavix] 75 mg PO QAM 11/04/20 02/19/21 docusate sodium 100 mg PO UD PRN 11/04/20 02/19/21 metoprolol succinate 12.5 mg PO QPM 11/04/20 02/19/21 sevelamer carbonate [Renvela] 1,600 mg PO TIDM 11/04/20 02/19/21 sildenafil (pulm.hypertension) 20 mg PO DAILY 02/19/21 02/19/21 spironolacton-hydrochlorothiaz 0.5 tab PO DAILY 02/19/21 02/19/21
[2021-02-22 01:08] LABS: Partial Thromboplastin Ratio 1.9
[2021-02-22 01:11] LABS: Partial Thromboplastin Time 49.4 Seconds (21.0-31.0)
[2021-02-22] MEDS: LEVOTHYROXINE SODIUM 100 MCG TABLET PO SCH (05:48)
[2021-02-22] MEDS: HEPARIN SODIUM/DEXTROSE 25,000 UNITS/500 ML BAG IV SCH (05:48)
[2021-02-22 06:20] LABS: Basophils # (auto) 0.08 K/uL (0-0.2); Eosinophils % (auto) 6.3 %; Hematocrit (blood only) 29.1 % (42-52); Hemoglobin 9.6 g/dL (14.0-18.0); Immature Granulocytes # (auto) 0.01 K/uL (0.00-0.02); Immature Granulocytes % (auto) 0.1 %; Lymphocytes # (auto) 1.35 K/uL (1.2-3.4); Mean Corpuscular Hemoglobin 31.1 pg (25-34); Mean Corpuscular Volume 94.2 fL (80-100); Mean Platelet Volume 9.3 fL (7.4-10.4); Monocytes # (auto) 0.58 K/uL (0.11-0.59); Monocytes % (auto) 7.3 %; Neutrophils % (auto) 68.3 %; Platelet Count 194 K/uL (130-400); RDW Standard Deviation 48.4 fL (36.4-46.3); Red Blood Count 3.09 M/uL (4.7-6.1); White Blood Count 7.92 K/uL (4.8-10.8)
[2021-02-22 07:00] LABS: Calcium 9.4 mg/dl (8.5-10.1); Creatinine Clr Calc Pharmacy 11.6 ml/min; Est GFR (African American) 12.8; Est GFR (Non-African American) 11.1; Potassium 4.1 mmol/L (3.5-5.1)
[2021-02-22] MEDS ORDERED: EPOETIN ALFA 10,000 UNITS/ML VIAL IV ONE (07:00)
[2021-02-22] MEDS ORDERED: SODIUM CHLORIDE 0.9% 1000ML 1,000 ML IV PRN (07:00)
--- NOTE | 2021-02-22 07:17 | Electrocardiogram Report ---
Test Reason : Blood Pressure : / mmHG Vent. Rate : 070 BPM Atrial Rate : 070 BPM P-R Int : 224 ms QRS Dur : 102 ms QT Int : 438 ms P-R-T Axes : 000 221 180 degrees QTc Int : 473 ms Sinus rhythm with 1st degree A-V block Suspect arm lead reversal, interpretation assumes no reversal Incomplete right bundle branch block Abnormal ECG When compared with ECG of 20-FEB-2021 17:35, (unconfirmed) Premature ventricular complexes are no longer Present Confirmed by Carlos Gutierrez ([id number]) on 02/22/2021 7:17:30 AM Referred By: REFERRED SELF Confirmed By:Carlos Gutierrez
[2021-02-22] MEDS: INSULIN ASPART 100 UNITS/ML 3 ML PEN SC SCH ×4 (08:40→20:54)
[2021-02-22] MEDS: SEVELAMER HCL 800 MG TABLET PO SCH ×3 (08:42→17:24)
[2021-02-22] MEDS: SPIRONOLACTONE/HCTZ 25-25 PO SCH (08:43)
[2021-02-22] MEDS: ASPIRIN 81 MG ECTAB PO SCH (08:44)
[2021-02-22] MEDS: CLOPIDOGREL BISULFATE 75 MG TAB PO SCH (08:44)
[2021-02-22] MEDS: allopurinoL 100 MG TAB PO SCH (08:44)
[2021-02-22] MEDS: CHOLECALCIFEROL 1,000 UNITS 25 MCG TAB PO SCH (08:45)
--- NOTE | 2021-02-22 10:08 | Cardiology Progress Note ---
Date of Service February 22, 2021 Assessment & Plan (1) Acute non-ST elevation myocardial infarction (NSTEMI): Likely type II event secondary to hypoxia, (patient ran out of home supplemental oxygen) in setting of fixed underlying CAD. Ongoing dyspnea on exertion unchanged despite TAVR and coronary vascularization. EKG 02/21/21 stable. Medical management recommended with ASA, clopidogrel (chronic) ,Toprol, atorvastatin Intravenous heparin may be discontinued today. (2) Right heart failure with reduced right ventricular function: No pulmonary embolism on CT. Interstitial lung disease, likely explains symptoms of [place](which were not relieved with PCI / TAVR). Continue supplemental oxygen. (3) S/P TAVR (transcatheter aortic valve replacement): Stable function on echo. (4) End-stage renal disease (ESRD): Patient scheduled for hemodialysis today. Recommend cautious volume removal as tolerated. Blood pressure stable, however, has history of syncope. Recommend maintaining telemetry monitoring during HD. (5) NSVT (nonsustained ventricular tachycardia): No recurrence over the past 24 hours. Continue beta-martina therapy. Admission and Anticipated Discharge Date Admission Date: February 20, 2021 Subjective Patient seen and examined the bedside. Scheduled for dialysis today. Reports continued dyspnea on exertion. Denies chest pain or discomfort. Notes left heel discomfort. No orthopnea or PND. Telemetry reveals sinus rhythm with a 15 beat mart of paroxysmal supraventricular tachycardia. No recurrent ventricular tachycardia. Review of Systems Review of Systems: All systems reviewed & are unremarkable except as noted in HPI & below Physical Exam Constitutional: + ill appearing; no acute distress Respiratory: Auscultation: + crackles (Dry crackles bilateral); no rhonchi and no wheezes Cardiovascular: Rate/Rhythm: regular rate and regular rhythm Heart Sounds: normal S1, normal S2 and + murmur (2/6 systolic ejection murmur heard best at the right second costal space) Vessels: no JVD Extremities: no edema Gastrointestinal (Abdomen): Inspection/Auscultation: normal bowel sounds; abdomen not distended Percussion/Palpation: abdomen soft; abdomen nontender, no guarding and abdomen not rigid Neurologic: moves all extremities; no focal motor deficits Motor/Sensory: no tremor Psychiatric: Orientation: alert and oriented x 3 Results & Data ([facility]) Vital Signs (Past 12 Hours) Vital Signs Temp Pulse Pulse Resp BP Pulse Ox 02/22/21 08:03 36.8 C 68 18 131/68 98 02/22/21 04:26 36.5 C 72 16 132/55 L 98 02/21/21 22:35 36.7 C 74 16 149/66 H 94 02/21/21 22:19 74
--- NOTE | 2021-02-22 10:16 | Nephrology Progress Note ---
Date of Service February 22, 2021 Assessment & Plan (1) End-stage renal disease (ESRD): Normal days on Wednesday, start session plan today as he continues to be short of breath . -for dialysis today. He will be moved to ICU temporarily as he needs to be monitored while on dialysis due to previous history of syncope. -For 3 hours treatment today with UF as planned. -He will likely need 4 days a week HD, on discharge. We will make Dr. Ross aware of this. Present on Admission?: Yes (2) SOB (shortness of breath): Multifactorial, Fluid overload, history for lung disease, right heart failure. -We will continue with volume management with dialysis. This has to be done carefully as he has got a previous history of syncope arrhythmias. (3) Acute non-ST elevation myocardial infarction (NSTEMI): Likely type II event secondary to hypoxia, For medical management, cardiology on board Admission and Anticipated Discharge Date Admission Date: February 20, 2021 Subjective Patient seen and examined the bedside. Scheduled for dialysis today. Looks comfortable at rest but complains of dyspnea on exertion, no chest pain Review of Systems Review of Systems: All systems reviewed & are unremarkable except as noted in HPI & below No shortness of breath at rest, no pedal edema. . Physical Exam Physical Exam: GENERAL: Comfortable at rest, alert and oriented. HEENT: Mucous membranes moist. CHEST: Bilateral decreased breath sounds, prolonged expiration. Occasional crackles, no JVD CARDIOVASCULAR: S1 and S2, regular. Systolic murmur heard. GASTROINTESTINAL: Abdomen is soft, nontender. EXTREMITIES: Shows no edema. Results & Data ([facility]) Vital Signs (Past 12 Hours) Vital Signs Temp Pulse Pulse Resp BP Pulse Ox 02/22/21 08:03 36.8 C 68 18 131/68 98 02/22/21 04:26 36.5 C 72 16 132/55 L 98 02/21/21 22:35 36.7 C 74 16 149/66 H 94 02/21/21 22:19 74 Laboratory Results 02/22/21 05:37 02/22/21 05:37
--- NOTE | 2021-02-22 15:42 | Pulmonary Consultation ---
Date of Consultation February 22, 2021 Assessment & Plan (1) Abnormal CT scan of lung: (2) Hypoxemia: Impression: 80-year-old male with multiple medical comorbidities including end-stage renal disease on dialysis and cardiomyopathy status post TAVR. He has significant pulmonary hypertension which is likely WHO class II and III. I suspect that his left ventricular end-diastolic pressures are elevated. Diuresis is not an option as the patient is anuric on dialysis so we will have to rely on fluid removal. He does have evidence of subpleural emphysematous changes with increased interstitial markings although it is unclear if this is related to fluid overload or not. Recommendations: 1. The patient's database is currently incomplete. Would need records from [facility] including his prior imaging studies, echocardiograms, and pulmonary function tests as well as clinical notes to determine what evaluation has been conducted previously. 2. The patient's comorbidities at this point in time would not lend themselves to an aggressive work-up at this point in time. I do not think he is a great candidate for systemic immunosuppression so we will hold off on serological evaluation. He definitely would not tolerate surgical lung biopsy or other invasive procedures including bronchoscopy. 3. Would recommend continued challenge with volume removal with hemodialysis. Given the complex nature of his pulmonary hypertension, evaluation at a pulmonary hypertension center of excellence would be recommended. He could be seen in either [facility]. We do not have the capabilities here locally to manage this degree of comorbid pulmonary hypertension. 4. Continue supplemental oxygen titrated to keep saturations at or above 88%. 5. Could consider outpatient pulmonary function testing and a potential follow- up CT scan once the patient's volume status had been dried out as much as possible. It is unclear if his lung issues are progressive or not as we do not have prior imaging to compare. At this point in time, I would not recommend additional invasive evaluation as an inpatient. If the patient is felt to be stable from a cardiac and nephrology as well as general medical standpoint, he can be dismissed to the hospital and again would recommend outpatient follow-up with a pulmonary hypertension center of excellence. Thanks for the opportunity of participating in the care of this patient. Feel free to contact us if we can be of additional assistance (3) Pulmonary hypertension: History of Present Illness Attending Physician: Sammy Saez MD History of Present Illness Asked by hospitalist to evaluate this patient with hypoxemic respiratory failure and an abnormal CT scan. History is obtained from discussion with the patient as well as review the electronic medical record. The patient is an 80-year-old male who apparently was followed by a skirt trimmer in the [facility] for 5 years ago. He had an evaluation at that point time for shortness of breath although I am unclear what evaluation was conducted and we have no records to review. He states he has been oxygen dependent for over a year after his last cardiac procedure. He does have a prior history of tobacco exposure but quit smoking in the 80s. 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 No other occupational or environmental exposures. 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 Patient was admitted to the hospital 02/19/2021 with shortness of breath. He has a history of end-stage renal disease on dialysis as well as valvular heart disease status post TAVR. He was seen by cardiology as he had an elevated troponin during this hospitalization. He underwent dialysis today and did not feel significantly better with regards to shortness of breath. He states he is doing okay as long as he is not physically active but if he has to exert himself any degree, he becomes short of breath. Allergies Allergy/AdvReac Type Severity Reaction Status Date / Time No Known Allergies Allergy Verified 02/19/21 20:35 Home Medications Medication Instructions Recorded Confirmed Type atorvastatin 80 mg tablet 40 mg PO HS tab 06/01/19 02/19/21 History cholecalciferol (vitamin D3) 25 1,000 unit PO QAM cap 06/01/19 02/19/21 History mcg (1,000 unit) capsule levothyroxine 100 mcg tablet 100 mcg PO QAM tab 06/01/19 02/19/21 History Tradjenta 5 mg PO DAILY 08/02/20 02/19/21 History allopurinol [Zyloprim] 200 mg PO DAILY 08/02/20 02/19/21 History furosemide [Lasix] 40 mg PO QAM 08/02/20 02/19/21 History Humulin 70/30 U-100 KwikPen 8 unit SUBCUT BID 11/04/20 02/19/21 History Aarti-Alberto 1 tab PO QAM 11/04/20 02/19/21 History aspirin 81 mg PO QAM 11/04/20 02/19/21 History clopidogrel [Plavix] 75 mg PO QAM 11/04/20 02/19/21 History docusate sodium 100 mg PO UD PRN 11/04/20 02/19/21 History metoprolol succinate 12.5 mg PO QPM 11/04/20 02/19/21 History sevelamer carbonate [Renvela] 1,600 mg PO TIDM 11/04/20 02/19/21 History sildenafil (pulm.hypertension) 20 mg PO DAILY 02/19/21 02/19/21 History spironolacton-hydrochlorothiaz 0.5 tab PO DAILY 02/19/21 02/19/21 History Patient History Medical History (Updated 02/22/21 @ 15:53 by Abhijit Amezcua MD) Benign prostate hyperplasia COPD (chronic obstructive pulmonary disease) with chronic bronchitis Coronary artery disease Diabetes mellitus Disturbance in sleep behavior ESRD (end stage renal disease) Hypertension Hypothyroidism Obstructive sleep apnea PVD (peripheral vascular disease) Surgical History H/O right inguinal hernia repair Open right inguinal hernia repair with mesh. Dr. Luo 03/04/20 History of prostate surgery Family History Mother Diabetes Father Cancer Cardiac disorder Social History Smoking Status: Never smoker Tobacco Type: Cigarettes Cigarettes Per Day: one pack a day; Second Hand Exposure: No; Hx Alcohol Use: No Hx Substance Use: No Preferred Language: Bhutanese Communication Ability: Effective Visual Impairment: No Limitations Production Aide Required: No Beliefs That Will Affect Care: None marital status: Current Living Situation: Spouse current occupational status: retired Other Information That Helps Us Care for You: No Feels Safe at Home: Yes Safety Concerns: Feels Safe At This Time Assistive Devices: Oxygen - Continuous and Walker Review of Systems Review of Systems: Please refer to hospitalist H&P. No additions or deletions Physical Exam Physical Exam: General- oriented x 3, not in distress, speaks in sentences with no effort or accessory muscle use Head- atraumatic Eyes- PERRL, EOMI, anicteric ENT- oropharynx clear Neck- supple, no JVD, no adenopathy, no thyromegaly; carotids +2/2, no bruits appreciated Lungs- (+) mild rhonchi BL, no wheezing, good air entry Heart- normal rate, regular rhythm; no murmurs Abdomen- normal bowel sounds, nondistended, soft, nontender, no masses or hepatosplenomegaly Extremities- no pretibial edema, no calf tenderness; peripheral pulses intact Neuro- alert, oriented x 3; CN 2-12 grossly intact; motor 5/5 bilaterally;sensation 100% on all extremities; no other gross focal neurologic deficits Skin- warm & dry Results & Data Results & Data ([facility]) Vital Signs (Past 12 Hours) Vital Signs Temp Pulse Pulse Pulse Pulse Resp BP 02/22/21 13:05 70 135/62 02/22/21 12:40 69 107/47 L 02/22/21 12:20 67 112/62 02/22/21 12:00 70 98/45 L 02/22/21 11:40 66 105/45 L 02/22/21 11:20 64 96/45 L 02/22/21 11:00 64 97/45 L 02/22/21 10:40 63 109/49 L 02/22/21 10:20 64 113/51 L 02/22/21 10:04 36.7 C 61 61 86 122/55 L 02/22/21 08:03 36.8 C 68 18 02/22/21 08:00 65 02/22/21 04:26 36.5 C 72 16 BP Pulse Ox 02/22/21 13:05 02/22/21 12:40 02/22/21 12:20 02/22/21 12:00 02/22/21 11:40 02/22/21 11:20 02/22/21 11:00 02/22/21 10:40 02/22/21 10:20 02/22/21 10:04 02/22/21 08:03 131/68 98 02/22/21 08:00 02/22/21 04:26 132/55 L 98 Laboratory Results 02/22/21 05:37 02/22/21 05:37 Diagnostic Findings Echocardiogram from 02/20/2021 was reviewed. EF of 65 to 70% with severe dilatation of the right ventricle and right ventricle hypokinesis. Severe pulmonary hypertension noted with a PA pressure estimated around 70. No AI. Diastolic dysfunction was noted. Bubble study was not performed so cannot comment on shunt physiology. CT angiogram independently reviewed. CT ANGIOGRAPHY OF THE CHEST, PULMONARY EMBOLUS PROTOCOL CLINICAL HISTORY: Shortness of breath. Near syncopal episode. New RV strain on echo. COMPARISON STUDY: Chest radiograph November 04, 2020 and February 19, 2021. TECHNIQUE: Following IV administration of 120 mL of Optiray-320, helical axial images of the chest were obtained utilizing the pulmonary embolus protocol. Maximal intensity projections and sagittal and coronal reformats were viewed on an independent 3D workstation. IV contrast was administered without complic ation. Automated exposure control was utilized for the study. A dose lowering technique was utilized adhering to the principles of ALARA. CT DOSE: 333.62 mGy.cm FINDINGS: No pulmonary emboli are identified although the subsegmental pulmonary arteries within the lower lobes are suboptimally assessed due to respiratory motion. Prosthetic aortic valve is noted. There is moderate cardiomegaly. There is dilatation of the right heart chambers with straightening of the interventricular septum. There is no pericardial effusion. Note is made of multiple mildly enlarged mediastinal lymph nodes. Index subcarinal lymph node measures 1.5 cm in short axis diameter. Calcified mediastinal and right hilar lymph nodes are present. There is no pneumothorax or pleural effusion. The central airways are patent. The lungs are suboptimally assessed due to respiratory motion. There is a possible 8 mm right upper lobe pulmonary nodule on image 196. There is mild upper lobe predominant emphysema. In addition, there is extensive reticulation within the lungs, predominately subpleural. Additional groundglass opacities are noted. Findings within the lower lungs have progressed since abdominal CT of March 03, 2020. There are calcified granulomas within the spleen. Bony thorax is unremarkable. There is no thoracic aortic dissection. Extensive coronary artery calcification is present. IMPRESSION: 1. No pulmonary emboli identified. 2. Mild emphysema. In addition, progression of subpleural reticulation and groundglass opacities with nodularity, likely within a lymphatic distribution, better depicted on abdominal CT of February 19, 2021. This has progressed since CT of March 03, 2021. This is nonspecific but favors progression of interstitial lung disease. Pulmonary edema or an infectious process could appear similar but are considered less likely. 3. Dilatation of the right heart chambers with straightening of the interventricular septum indicative of elevated right heart pressures. 4. Multiple mildly enlarged mediastinal lymph nodes. These are nonspecific but may be related to interstitial lung disease. 5. Possible 8 mm right upper lobe pulmonary nodule. A follow-up chest CT in 6 months is recommended. 6. Evidence for a previous granulomatous process. PG Care Time/CCT Total # of Minutes Spent Total Time Spent with Patient: Total time spent is greater than 50% in coordination of care (as documented) at patient's floor/unit and/or counseling patient: Coding Level of Care Code 66751 Initial Inpt Care Lvl [address] scan of lung R91.8 Hypoxemia R09.02 Pulmonary hypertension I27.20 Time Spent (min) 50
--- NOTE | 2021-02-22 16:22 | Hospitalist Progress Note ---
Date of Service February 22, 2021 Assessment & Plan (1) SOB (shortness of breath): Patient presented with exertional shortness of breath NSTEMI H/O CAD S/P Stent PVD S/P TAVR Troponin trended down -ECHO: Severe concentric LVH, no regional wall motion abnormality. EF 65 to 70%. Right ventricle is severely dilated. Severe diffuse right ventricular hypokinesis present. Severe pulmonary hypertension present. Left ventricular diastolic dysfunction with elevated left sided filling pressures. -Continue IV Heparin -Continue ASA, Plavix, Metoprolol Appreciate cardiology input Chronic respiratory failure with Hypoxia COPD/pulmonary fibrosis Pulmonary HTN Chronic oxygen dependency--On 2-3 L at baseline -CTA:No pulmonary emboli identified. Mild emphysema. In addition, progression of subpleural reticulation and groundglass opacities with nodularity, likely within a lymphatic distribution, better depicted on abdominal CT of February 19, 2021. This has progressed since CT of March 03, 2021. This is nonspecific but favors progression of interstitial lung disease. Pulmonary edema or an infectious process could appear similar but are considered less likely. Dilatation of the right heart chambers with straightening of the interventricular septum indicative of elevated right heart pressures. Multiple mildly enlarged mediastinal lymph nodes. These are nonspecific but may be related to interstitial lung disease. Possible 8 mm right upper lobe pulmonary nodule. A follow-up chest CT in 6 months is recommended. Evidence for a previous granulomatous process. -Volume management through dialysis -Poor candidate for any procedures currently -Needs tertiary care center for further evaluation of significant pulmonary hypertension -Continue supplemental oxygen to keep sats at or above 88% -Needs outpatient follow-up with pulmonology upon discharge ESRD on HD On MWF schedule Currently needs 4 days a week hemodialysis Follows with Dr. Ross as outpatient DM II HbA1C: 6.17 February 2021 Continue insulin therapy Monitor BGs Anemia of chronic disease No bleeding issues Monitor hemoglobin Chronic thrombocytopenia Platelets within normal range Monitor DVT Px: on IV heparin CODE STATUS Full code Disposition PT OT prior to discharge Admission and Anticipated Discharge Date Admission Date: February 20, 2021 Subjective Patient is seen and examined at bedside Had dialysis earlier today Reports dyspnea on exertion Denies chest pain, dizziness, nausea, abdominal pain On IV Heparin Review of Systems Review of Systems: All systems reviewed & are unremarkable except as noted in HPI & below Physical Exam Physical Exam: Physical Exam: Vitals signs as noted above General Appearance:Thin, frail, no apparent distress Head: normocephalic, Atraumatic Eyes: normal inspection, EOMI Neck: supple, Trachea midline Respiratory/Chest: Normal breath sounds, Basal Crackles/ Rhonchi Cardiovascular: S1, S2, + systolic murmur Abdomen/GI:Soft, Non tender, Bowel sounds present Extremities/Musculoskelatal:normal inspection, no edema Neurologic/Psych:AAOX3, grossly no focal neurological deficits Skin: normal color, warm Results & Data Results & Data ([facility]) Vital Signs (Past 12 Hours) Vital Signs Temp Pulse Pulse Pulse Pulse Resp BP 02/22/21 13:47 70 18 02/22/21 13:05 70 135/62 02/22/21 12:40 69 107/47 L 02/22/21 12:20 67 112/62 02/22/21 12:00 70 98/45 L 02/22/21 11:40 66 105/45 L 02/22/21 11:20 64 96/45 L 02/22/21 11:00 64 97/45 L 02/22/21 10:40 63 109/49 L 02/22/21 10:20 64 113/51 L 02/22/21 10:04 36.7 C 61 61 86 122/55 L 02/22/21 08:03 36.8 C 68 18 02/22/21 08:00 65 02/22/21 04:26 36.5 C 72 16 BP Pulse Ox 02/22/21 13:47 134/63 100 02/22/21 13:05 02/22/21 12:40 02/22/21 12:20 02/22/21 12:00 02/22/21 11:40 02/22/21 11:20 02/22/21 11:00 02/22/21 10:40 02/22/21 10:20 02/22/21 10:04 02/22/21 08:03 131/68 98 02/22/21 08:00 02/22/21 04:26 132/55 L 98 Laboratory Results Short CBC 02/22/21 Range/Units 05:37 WBC 7.92 (4.8-10.8) K/uL Hgb 9.6 L (14.0-18.0) g/dL Hct 29.1 L (42-52) % Plt Count 194 (130-400) K/uL BMP 02/22/21 05:37 Sodium 133 L Potassium 4.1 Chloride 97 L Carbon Dioxide 31 BUN 32 H Creatinine 4.58 H* D Glucose 182 H Calcium 9.4
[2021-02-22] MEDS: ATORVASTATIN 40 MG TAB PO SCH (21:03)
[2021-02-22] MEDS: METOPROLOL SUCC 25MG EXT REL TAB PO SCH (21:03)
[2021-02-23 05:50] LABS: Hematocrit (blood only) 34.9 % (42-52); Hemoglobin 11.8 g/dL (14.0-18.0); Mean Corpuscular Hemoglobin 32.4 pg (25-34); Mean Corpuscular Hgb Conc 33.8 g/dL (32-36); Mean Corpuscular Volume 95.9 fL (80-100); Mean Platelet Volume 9.4 fL (7.4-10.4); Platelet Count 221 K/uL (130-400); RDW Standard Deviation 49.8 fL (36.4-46.3); Red Blood Count 3.64 M/uL (4.7-6.1); White Blood Count 9.67 K/uL (4.8-10.8)
[2021-02-23] MEDS: LEVOTHYROXINE SODIUM 100 MCG TABLET PO SCH (05:51)
[2021-02-23] MEDS: HEPARIN SOD 5,000 UNIT/0.5 ML VIAL SQ SCH ×2 (05:52→14:08)
[2021-02-23 06:21] LABS: BUN Creatinine Ratio 6.1 (10-20); Calcium 9.3 mg/dl (8.5-10.1); Creatinine Clr Calc Pharmacy 13.5 ml/min; Est GFR (Non-African American) 13.8; Magnesium 2.2 mg/dl (1.8-2.4); Potassium 4.1 mmol/L (3.5-5.1)
[2021-02-23] MEDS: INSULIN ASPART 100 UNITS/ML 3 ML PEN SC SCH ×3 (08:12→16:54)
[2021-02-23] MEDS: CLOPIDOGREL BISULFATE 75 MG TAB PO SCH (08:14)
[2021-02-23] MEDS: ASPIRIN 81 MG ECTAB PO SCH (08:14)
[2021-02-23] MEDS: SPIRONOLACTONE/HCTZ 25-25 PO SCH (08:15)
[2021-02-23] MEDS: SEVELAMER HCL 800 MG TABLET PO SCH ×3 (08:15→16:43)
[2021-02-23] MEDS: CHOLECALCIFEROL 1,000 UNITS 25 MCG TAB PO SCH (08:16)
[2021-02-23] MEDS: allopurinoL 100 MG TAB PO SCH (08:16)
--- NOTE | 2021-02-23 09:41 | Pulmonology Progress Note ---
Date of Service February 23, 2021 Assessment & Plan (1) Abnormal CT scan of lung: (2) Hypoxemia: Impression: 80-year-old male with multiple medical comorbidities including end-stage renal disease on dialysis and cardiomyopathy status post TAVR. He has significant pulmonary hypertension which is likely WHO class II and III. I suspect that his left ventricular end-diastolic pressures are elevated. Diuresis is not an option as the patient is anuric on dialysis so we will have to rely on fluid removal. He does have evidence of subpleural emphysematous changes with increased interstitial markings although it is unclear if this is related to fluid overload or not. Recommendations: 1. The patient's database is currently incomplete. Please request records from [facility] including his prior imaging studies, echocardiograms, and pulmonary function tests as well as clinical notes to determine what evaluation has been conducted previously. 2. The patient's comorbidities at this point in time would not lend themselves to an aggressive work-up at this point in time. I do not think he is a great candidate for systemic immunosuppression so we will hold off on serological evaluation. He definitely would not tolerate surgical lung biopsy or other invasive procedures including bronchoscopy. 3. Would recommend continued challenge with volume removal with hemodialysis. Given the complex nature of his pulmonary hypertension, evaluation at a pulmonary hypertension center of excellence would be recommended. He could be seen in either [facility] or [facility]. We do not have the capabilities here locally to manage this degree of comorbid pulmonary hypertension. 4. Continue supplemental oxygen titrated to keep saturations at or above 88%. 5. Could consider outpatient pulmonary function testing and a potential follow- up CT scan once the patient's volume status had been dried out as much as possible. It is unclear if his lung issues are progressive or not as we do not have prior imaging to compare. At this point in time, I would not recommend additional invasive evaluation as an inpatient from a pulmonary standpoint. If the patient is felt to be stable from a cardiac and nephrology as well as general medical standpoint, he can be dismissed to the hospital and again would recommend outpatient follow-up with a pulmonary hypertension center of excellence. Pulmonary will sign off at this point time. Feel free to contact us if we can be of additional assistance (3) Pulmonary hypertension: Admission and Anticipated Discharge Date Admission Date: February 20, 2021 Subjective Patient seen and examined. He feels about the same. He continues to turn his oxygen up with activity. He states he goes up to about 4 L when he walks to the bathroom. He feels his shortness of breath is about the same. He denies any sy ncope or presyncope. Review of Systems Review of Systems: All systems reviewed & are unremarkable except as noted in HPI & below Physical Exam Physical Exam: Physical Exam: Vitals signs as noted above General Appearance:Thin, frail, no apparent distress Head: normocephalic, Atraumatic Eyes: normal inspection, EOMI Neck: supple, Trachea midline Respiratory/Chest: Normal breath sounds, Basal Crackles/ Rhonchi Cardiovascular: S1, S2, + systolic murmur Abdomen/GI:Soft, Non tender, Bowel sounds present Extremities/Musculoskelatal:normal inspection, no edema Neurologic/Psych:AAOX3, grossly no focal neurological deficits Skin: normal color, warm Results & Data Results & Data ([facility]) Vital Signs (Past 12 Hours) Vital Signs Temp Pulse Pulse Resp BP Pulse Ox 02/23/21 06:36 36.5 C 61 19 117/62 100 02/23/21 04:08 36.6 C 69 17 134/65 96 02/22/21 23:25 36.8 C 68 17 134/62 96 02/22/21 23:22 77 Laboratory Results 02/23/21 05:30 02/23/21 05:30 Diagnostic Findings No new imaging PG Care Time/CCT Total # of Minutes Spent Total Time Spent with Patient: Total time spent is greater than 50% in coordination of care (as documented) at patient's floor/unit and/or counseling patient: Coding Level of Care Code 78534 Subseq Hosp Care Lvl [address] scan of lung R91.8 Hypoxemia R09.02 Pulmonary hypertension I27.20
--- NOTE | 2021-02-23 11:05 | Nephrology Progress Note ---
Date of Service February 23, 2021 Assessment & Plan (1) End-stage renal disease (ESRD): Normal days on Wednesday, start session plan today as he continues to be short of breath . -Dialyzed yesterday, and be discharged today continue with outpatient dialysis for Wednesday. -He will likely need 4 days a week HD, on discharge. We will make Dr. Ross aware of this. (2) SOB (shortness of breath): Multifactorial, Fluid overload, history for lung disease, right heart failure. -Improved at baseline (3) Acute non-ST elevation myocardial infarction (NSTEMI): Likely type II event secondary to hypoxia, For medical management, cardiology on board Admission and Anticipated Discharge Date Admission Date: February 20, 2021 Subjective Shortness of breath at baseline, no new issues overnight Review of Systems Review of Systems: No shortness of breath at rest, no pedal edema. . Physical Exam Physical Exam: GENERAL: Comfortable at rest, alert and oriented. HEENT: Mucous membranes moist. CHEST: Bilateral decreased breath sounds, prolonged expiration. Occasional crackles, no JVD CARDIOVASCULAR: S1 and S2, regular. Systolic murmur heard. GASTROINTESTINAL: Abdomen is soft, nontender. EXTREMITIES: Shows no edema. Results & Data ([facility]) Vital Signs (Past 12 Hours) Vital Signs Temp Pulse Pulse Resp BP Pulse Ox 02/23/21 06:36 36.5 C 61 19 117/62 100 02/23/21 04:08 36.6 C 69 17 134/65 96 02/22/21 23:25 36.8 C 68 17 134/62 96 02/22/21 23:22 77 Laboratory Results 02/23/21 05:30 02/23/21 05:30
--- NOTE | 2021-02-23 11:17 | Hospitalist Progress Note ---
Date of Service February 23, 2021 Assessment & Plan (1) SOB (shortness of breath): Patient presented with exertional shortness of breath NSTEMI Likely Type II due to Hypoxia H/O CAD S/P Stent PVD S/P TAVR Troponin trended down -ECHO: Severe concentric LVH, no regional wall motion abnormality. EF 65 to 70%. Right ventricle is severely dilated. Severe diffuse right ventricular hypokinesis present. Severe pulmonary hypertension present. Left ventricular diastolic dysfunction with elevated left sided filling pressures. -IV Heparin discontinued -Continue ASA, Plavix, Metoprolol Appreciate cardiology input Chronic respiratory failure with Hypoxia COPD/pulmonary fibrosis Pulmonary HTN Chronic oxygen dependency--On 2-3 L at baseline -CTA:No pulmonary emboli identified. Mild emphysema. In addition, progression of subpleural reticulation and groundglass opacities with nodularity, likely within a lymphatic distribution, better depicted on abdominal CT of February 19, 2021. This has progressed since CT of March 03, 2021. This is nonspecific but favors progression of interstitial lung disease. Pulmonary edema or an infectious process could appear similar but are considered less likely. Dilatation of the right heart chambers with straightening of the interventricular septum in dicative of elevated right heart pressures. Multiple mildly enlarged mediastinal lymph nodes. These are nonspecific but may be related to interstitial lung disease. Possible 8 mm right upper lobe pulmonary nodule. A follow-up chest CT in 6 months is recommended. Evidence for a previous granulomatous process. -Volume management through dialysis -Poor candidate for any procedures currently -Needs tertiary care center for further evaluation of significant pulmonary hypertension -Continue supplemental oxygen to keep sats at or above 88% -Needs outpatient follow-up with pulmonology upon discharge -Needs follow up with pulmonary hypertension center as outpatient ESRD on HD On MWF schedule Currently needs 4 days a week hemodialysis--Plan to continue the same upon discharge as well Follows with Dr. Ross as outpatient DM II HbA1C: 6.17 February 2021 Continue insulin therapy Monitor BGs Anemia of chronic disease No bleeding issues Monitor hemoglobin Chronic thrombocytopenia Platelets within normal range Monitor DVT Px: SQ heparin CODE STATUS Full code Disposition PT OT prior to discharge Admission and Anticipated Discharge Date Admission Date: February 20, 2021 Subjective Patient is seen and examined at bedside Discussed with Cardiology and Nephrology today Reports dyspnea on exertion is unchanged Denies chest pain, dizziness, nausea, abdominal pain No new complaints Planned for dialysis tomorrow Review of Systems Review of Systems: All systems reviewed & are unremarkable except as noted in HPI & below Physical Exam Physical Exam: Physical Exam: Vitals signs as noted above General Appearance:Thin, frail, no apparent distress Head: normocephalic, Atraumatic Eyes: normal inspection, EOMI Neck: supple, Trachea midline Respiratory/Chest: CTA, Normal breath sounds Cardiovascular: S1, S2, + systolic murmur Abdomen/GI:Soft, Non tender, Bowel sounds present Extremities/Musculoskeletal:normal inspection, no edema Neurologic/Psych:AAOX3, grossly no focal neurological deficits Skin: normal color, warm Results & Data Results & Data ([facility]) Vital Signs (Past 12 Hours) Vital Signs Temp Pulse Pulse Resp BP Pulse Ox 02/23/21 06:36 36.5 C 61 19 117/62 100 02/23/21 04:08 36.6 C 69 17 134/65 96 02/22/21 23:25 36.8 C 68 17 134/62 96 02/22/21 23:22 77 Laboratory Results Short CBC 02/23/21 Range/Units 05:30 WBC 9.67 (4.8-10.8) K/uL Hgb 11.8 L (14.0-18.0) g/dL Hct 34.9 L (42-52) % Plt Count 221 (130-400) K/uL BMP 02/23/21 05:30 Sodium 136 Potassium 4.1 Chloride 101 Carbon Dioxide 31 BUN 23 H Creatinine 3.82 H D Glucose 133 H Calcium 9.3
--- NOTE | 2021-02-23 11:48 | Cardiology Progress Note ---
Date of Service February 23, 2021 Assessment & Plan (1) Acute non-ST elevation myocardial infarction (NSTEMI): Likely type II event secondary to hypoxia, (patient ran out of home supplemental oxygen) in setting of fixed underlying CAD. Ongoing dyspnea on exertion unchanged despite TAVR and coronary revascularization. EKG 02/21/21 stable. Medical management recommended with ASA, clopidogrel (chronic) ,Toprol, atorvastatin (2) Right heart failure with reduced right ventricular function: No pulmonary embolism on CT. Interstitial lung disease, likely explains symptoms of [place](which were not relieved with PCI / TAVR). Continue supplemental oxygen. Pulmonary evaluation. (3) S/P TAVR (transcatheter aortic valve replacement): Stable function on echo. (4) End-stage renal disease (ESRD): Tolerated dialysis treatment yesterday. (5) NSVT (nonsustained ventricular tachycardia): 4 beat mart of nonsustained VT recorded. No associated symptoms. Complete ZIO monitor (patient wearing now). Continue beta-martina therapy. Admission and Anticipated Discharge Date Admission Date: February 20, 2021 Subjective Patient seen and examined at the bedside. Denies chest discomfort. Dyspnea unchanged. Telemetry reveals sinus rhythm ranging from 60-70 bpm. Tolerated dialysis treatment yesterday. Offers no new concerns/complaints. Review of Systems 2 Review of Systems: All systems reviewed & are unremarkable except as noted in Subjective Physical Exam Constitutional: + ill appearing; no acute distress Respiratory: Auscultation: + crackles (Dry crackles bilateral); no rhonchi and no wheezes Cardiovascular: Rate/Rhythm: regular rate and regular rhythm Heart Sounds: normal S1, normal S2 and + murmur (2/6 systolic ejection murmur heard best at the right second costal space) Vessels: no JVD Extremities: no edema Gastrointestinal (Abdomen): Inspection/Auscultation: normal bowel sounds; abdomen not distended Percussion/Palpation: abdomen soft; abdomen nontender, no guarding and abdomen not rigid Neurologic: moves all extremities; no focal motor deficits Motor/Sensory: no tremor Psychiatric: Orientation: alert and oriented x 3 Results & Data ([facility]) Vital Signs (Past 12 Hours) Vital Signs Temp Pulse Pulse Resp BP Pulse Ox 02/23/21 08:00 66 02/23/21 06:36 36.5 C 61 19 117/62 100 02/23/21 04:08 36.6 C 69 17 134/65 96
--- NOTE | 2021-02-23 13:08 | Discharge Summary ---
Date of Service February 23, 2021 Admission HPI Per Admitting Provider History obtained from patient, family, and records. Patient is a reliable historian. Medical history significant for chronic respiratory failure secondary to COPD/pulmonary fibrosis as per records/pulmonary HTN on home O2, chronic diastolic HF (EF 55 to 59%, TTE 2019), CAD status post stent, PVD, status post percutaneous femoral AVR, ESRD on HD, DM2 insulin requiring, chronic anemia (baseline hemoglobin 10-11), chronic thrombocytopenia, Ng's palsy as per patient, past tobacco abuse. Last confinement October 2020 for decompensated heart failure. Patient noted shortness of breath today which he attributed to new oxygen tank issue. No unusual cough symptoms, no chest pain. Some dizziness. No syncope. Patient complaining of left hernia pain a little more than usual without fever, chills. Compliant with [facility] hemodialysis schedule. Patient brought to the ER for evaluation. Patient currently comfortable. 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), moist buccal mucosa, nasal cannula in place NECK : Supple, no tenderness CHEST : Decreased breath sounds, no tenderness HEART : RRR, no obvious murmurs ABDOMEN: Some distention, left inguinal tenderness EXTREMITIES : Minimal LE swelling, no LE tenderness, no other conspicuous deformities noted NEUROLOGIC : Coherent, chronic left facial palsy, no other gross focality Principal Diagnosis Non-ST elevation myocardial infarction Severe pulmonary hypertension Chronic respiratory failure with hypoxia Nonsustained ventricular tachycardia ESRD Discharge Data Allergies Allergy/AdvReac Type Severity Reaction Status Date / Time No Known Allergies Allergy Verified 02/19/21 20:35 Consultations 02/19/21 22:23 ED Decision to Admit Stat 02/20/21 02:36 Consult Cardiology Routine 02/20/21 08:50 Consult Nephrology Routine 02/21/21 23:21 Consult Pulmonology Routine 02/22/21 16:54 Consult Health Information Management Routine Procedures Performed ECHO: Severe concentric LVH, no regional wall motion abnormality. EF 65 to 70%. Right ventricle is severely dilated. Severe diffuse right ventricular hypokinesis present. Severe pulmonary hypertension present. Left ventricular diastolic dysfunction with elevated left sided filling pressures. CTA:No pulmonary emboli identified. Mild emphysema. In addition, progression of subpleural reticulation and groundglass opacities with nodularity, likely within a lymphatic distribution, better depicted on abdominal CT of February 19, 2021. This has progressed since CT of March 03, 2021. This is nonspecific but favors progression of interstitial lung disease. Pulmonary edema or an infectious process could appear similar but are considered less likely. Dilatation of the right heart chambers with straightening of the interventricular septum i ndicative of elevated right heart pressures. Multiple mildly enlarged mediastinal lymph nodes. These are nonspecific but may be related to interstitial lung disease. Possible 8 mm right upper lobe pulmonary nodule. A follow-up chest CT in 6 months is recommended. Ordered Studies 02/19/21 23:07 CT abd pelvis wo con Urgent 02/20/21 10:59 CT angio chest PE protocol Stat Hospital Course (1) SOB (shortness of breath): Patient presented with exertional shortness of breath NSTEMI Likely Type II due to Hypoxia H/O CAD S/P Stent PVD S/P TAVR Troponin trended down -ECHO: Severe concentric LVH, no regional wall motion abnormality. EF 65 to 70%. Right ventricle is severely dilated. Severe diffuse right ventricular hypokinesis present. Severe pulmonary hypertension present. Left ventricular diastolic dysfunction with elevated left sided filling pressures. -IV Heparin discontinued -Continue ASA, Plavix, Metoprolol Appreciate cardiology input Chronic respiratory failure with Hypoxia COPD/pulmonary fibrosis Pulmonary HTN Chronic oxygen dependency--On 2-3 L at baseline -CTA:No pulmonary emboli identified. Mild emphysema. In addition, progression of subpleural reticulation and groundglass opacities with nodularity, likely within a lymphatic distribution, better depicted on abdominal CT of February 19, 2021. This has progressed since CT of March 03, 2021. This is nonspecific but favors progression of interstitial lung disease. Pulmonary edema or an infectious process could appear similar but are considered less likely. Dilatation of the right heart chambers with straightening of the interventricular septum indicative of elevated right heart pressures. Multiple mildly enlarged mediastinal lymph nodes. These are nonspecific but may be related to interstitial lung disease. Possible 8 mm right upper lobe pulmonary nodule. A follow-up chest CT in 6 months is recommended. Evidence for a previous granulomatous process. -Volume management through dialysis -Poor candidate for any procedures currently -Needs tertiary care center for further evaluation of significant pulmonary hypertension -Continue supplemental oxygen to keep sats at or above 88% -Needs outpatient follow-up with pulmonology upon discharge -Needs follow up with pulmonary hypertension center as outpatient ESRD on HD On MWF schedule Currently needs 4 days a week hemodialysis--Plan to continue the same upon discharge as well Follows with Dr. oRss as outpatient DM II HbA1C: 6.17 February 2021 Continue insulin therapy Monitor BGs Anemia of chronic disease No bleeding issues Monitor hemoglobin Chronic thrombocytopenia Platelets within normal range Monitor NSVT On Zio patch Continue beta martina DVT Px: SQ heparin CODE STATUS Full code Disposition PT OT prior to discharge Total Time Total Time Spent Total Time Spent (In Minutes): 44 minutes Total Time Includes: Examination of the Patient, Discharge Planning, Medication Reconciliation, Communication With Other Providers and Other Discharge Plan Discharge Items Patient Disposition: Home - Home Health Services Reason For Visit: ACS Discharge Diagnosis: Non-ST elevation myocardial infarction Severe pulmonary hypertension Chronic respiratory failure with hypoxia Nonsustained ventricular tachycardia ESRD Activity: Per Instructions section Exercise/Sports: Wait until after follow-up appointment Non-emergency contact: Primary Care Provider, Event Av Operator, Childbirth Educator and Site Monitor Call non-emergency contact if: you have any medication questions, your symptoms worsen, your pain is concerning for you and you have a fever Follow-up/Referrals: Bud Castorena DO [Event Av Operator] - Yvon Swan MD [Primary Care Provider] - 03/03/21 11:20 am (Please follow up with Dr. Cassidy on Wednesday03/03/21 at 11:20 am. Please arrive to the office at 11:05 am for your appointment. If you are unable to keep this appointment, please call the office to reschedule at [phone].) Diet: Carb Consistent or DM2, Dialysis Renal and Heart Healthy Addtl Attending Provider Instructions: Follow-up with your primary care physician in 1 week Follow up with your Childbirth Educator for hemodialysis as advised Follow up with your pipeline maintenance supervisor for further evaluation of pulmonary hypertension Follow-up with your deflector operator Dr. Castorena in 3-4 weeks Seek immediate medical attention if your symptoms reoccur or worsen Home Care: * Take your medications exactly as directed. Don't skip doses. * Remember that recovery after a heart attack takes time. Plan to rest for at lease 4-8 weeks while you recover. Then return to normal activity when your doctor says it's okay. * Ask your doctor about joining a heart rehabilitation program. * Tell your doctor if you are feeling depressed. Feelings of sadness are common after a heart attack, but it is important that you speak to someone if you are feeling overwhelmed by these feelings. * If you are having chest pain, call 911 for an ambulance. Do NOT drive yourself to the hospital. * Ask your family members to learn CPR. * Learn to take your own blood pressure and pulse. Keep a record of your results. Ask your doctor when you should seek emergency medical attention. He or she will tell you which blood pressure reading is dangerous. Lifestyle Changes: * Maintain a healthy weight. Get help to lose any extra pounds. * Cut back on salt. * Limit canned, dried, packaged, and fast foods. * Don't add salt to your food. * Season foods with herbs instead of salt when you cook. * Break the smoking habit. Enroll in a stop-smoking program to improve your chances of success. * Limit fatty foods. * Ask your doctor about having your lipid levels checked regularly. * Build up your activity according to your doctor's recommendation. * Ask your doctor when it's okay to resume sexual activity. * Tell your doctor about any erectile dysfunction (ED) medication you are taking. Some ED medications are not safe if you take certain heart medications. * Try to manage stress. Follow Up: It is important for you to keep your follow up appointments with your medical provider. Pending Studies at Discharge: No Stand-Alone Forms: My [facility], Smoking Cessation Medications and DC Order Prescriptions: Continued cholecalciferol (vitamin D3) 1,000 unit capsule 1,000 unit PO QAM RF: 0 levothyroxine 100 mcg tablet 100 mcg PO QAM RF: 0 atorvastatin 80 mg tablet 40 mg PO HS RF: 0 furosemide [Lasix] 40 mg tablet 40 mg PO QAM RF: 0 allopurinol [Zyloprim] 100 mg tablet 200 mg PO DAILY RF: 0 Tradjenta 5 mg tablet 5 mg PO DAILY RF: 0 aspirin 81 mg Tablet,Delayed Release (Dr/Ec) 81 mg PO QAM RF: 0 clopidogrel [Plavix] 75 mg tablet 75 mg PO QAM RF: 0 docusate sodium 100 mg Capsule 100 mg PO UD PRN (Reason: Constipation) RF: 0 Aarti-Alberto 0.8 mg tablet 1 tab PO QAM RF: 0 metoprolol succinate 25 mg tablet extended release 24 hr 12.5 mg PO QPM RF: 0 Humulin 70/30 U-100 KwikPen 100 unit/mL (70-30) Insulin Pen 8 unit SUBCUT BID RF: 0 sevelamer carbonate [Renvela] 800 mg tablet 1,600 mg PO TIDM RF: 0 spironolacton-hydrochlorothiaz 25-25 mg tablet 0.5 tab PO DAILY RF: 0 sildenafil (pulm.hypertension) 20 mg tablet 20 mg PO DAILY RF: 0 Discharge Orders: Discharge Order (Routine); Ordered 02/23/21 Ordered By: Sammy Saez Admission Data Admit Date/Time: 02/20/21 00:00 Attending Provider: Sammy Saez Admit Provider: Chance Brambila Primary Care Provider: Yvon Swan Other Providers: Chance Brambila ; Kevin Gross ; Bud Castorena ; Kiran Perez ; Thomas Rico ; Rod Powell ; Naga Rodriguez ; Brooke Connor ; Karen Kumar ; Tod Mayer ; You Bocanegra ; Kelsie Menendez ; Abhijit Amezcua Other Interventions: Discharge Summary Assessment (RN) Last Done: 02/23/21 14:28
== END 2021-02-23 17:22 | disposition home health service (06) | DRG 189 ==
LOC: ED 19:51 → SUATTDRO 02-20 → 2S 02-20